=== PATIENT | female | born 1950 | race Caucasian/White ===

== ENCOUNTER 2018-05-13 10:09 | Inpatient (IN) | payer MEDICARE ==
[2018-05-13] MEDS ORDERED: ONDANSETRON 4 MG/2 ML VIAL IVP STA (10:29)
[2018-05-13] MEDS ORDERED: SODIUM CHLORIDE 0.9% 500 ML 500 ML IV STA (10:29)
[2018-05-13] MEDS ORDERED: SODIUM CHLORIDE 0.9% 1,000 ML IV STA (10:29)
[2018-05-13] MEDS ORDERED: FAMOTIDINE 20 MG/2 ML VIAL IV STA (10:31)
[2018-05-13 11:18] LABS: Anisocytosis Slight; HCT 37.4 % (34.0-46.0); HGB 11.9 gm/dL (11.4-16.0); Hypochromasia Slight; MCHC 31.8 g/dL (31.0-37.0); MCV 84.9 fL (80.0-100.0); Mean Platelet Volume 7.1; Platelet Count 240 k/uL (150-450); RBC 4.41 m/uL (3.80-5.40); RDW 16.7 % (11.5-15.5)
--- NOTE | 2018-05-13 11:21 | ED ---
Nausea/Vomiting/Diarrhea HPI - General Chief complaint: Nausea/Vomiting/Diarrhea Stated complaint: Abd Pain Time Seen by Provider: 05/13/18 10:23 Source: patient, RN notes reviewed Mode of arrival: wheelchair Limitations: no limitations - History of Present Illness Initial comments: 67-year-old female presents emergency Department chief complaint nausea vomiting diarrhea 5 days. Patient states that she's had multiple contacts are household with a stomach virus but states that she's not getting any better. Patient states that she's had no melena, hematochezia, hematemesis or coffee- ground emesis. Patient states she just generalized feels weak, run down not feeling well. She does complain of mild epigastric pain which just started in the last 2 days. Patient denies any chest pain, shortness breath, headache or dizziness. Patient states that she is not eating much and last 5 days. Patient states her diarrhea is watery no recent antibiotic use or recent traveling. - Related Data Home Medications Medication Instructions Recorded Confirmed Atorvastatin [Lipitor] 80 mg PO HS 05/13/18 05/13/18 Insulin Detemir [Levemir] 40 unit SQ BID 05/13/18 05/13/18 Levothyroxine Sodium [Synthroid] 137 mcg PO DAILY 05/13/18 05/13/18 Lisinopril [Zestril] 20 mg PO DAILY 05/13/18 05/13/18 NIFEdipine [NIFEdipine ER] 90 mg PO DAILY 05/13/18 05/13/18 Pioglitazone [Actos] 30 mg PO DAILY 05/13/18 05/13/18 Triamterene-Hctz 37.5-25Mg 1 cap PO DAILY 05/13/18 05/13/18 [Dyazide 37.5-25 Capsule] Allergies Allergy/AdvReac Type Severity Reaction Status Date / Time amoxicillin Allergy Unknown Verified 05/13/18 11:12 Sulfa (Sulfonamide Allergy Rash/Hives Verified 05/13/18 11:12 Antibiotics) Review of Systems ROS Statement: Those systems with pertinent positive or pertinent negative responses have been documented in the HPI. ROS Other: All systems not noted in ROS Statement are negative. Past Medical History Past Medical History: Diabetes Mellitus, Hyperlipidemia, Hypertension, Thyroid Disorder History of Any Multi-Drug Resistant Organisms: None Reported Past Surgical History: Hernia Repair Past Psychological History: No Psychological Hx Reported Smoking Status: Never smoker Past Alcohol Use History: None Reported Past Drug Use History: None Reported General Exam Limitations: no limitations General appearance: alert, in no apparent distress Head exam: Present: atraumatic, normocephalic, normal inspection ENT exam: Present: normal oropharynx Neck exam: Present: normal inspection. Absent: tenderness, meningismus, lymphadenopathy Respiratory exam: Present: normal lung sounds bilaterally. Absent: respiratory distress, wheezes, rales, rhonchi, stridor Cardiovascular Exam: Present: regular rate, normal rhythm, normal heart sounds. Absent: systolic murmur, diastolic murmur, rubs, gallop, clicks GI/Abdominal exam: Present: soft, tenderness (Mild epigastric), normal bowel sounds. Absent: distended, guarding, rebound, rigid Course Vital Signs 05/13/18 10:12 Temperature 97.8 F Pulse Rate 80 Respiratory 18 Rate Blood Pressure 92/48 O2 Sat by Pulse 98 Oximetry Medical Decision Making - Lab Data Result diagrams: 05/13/18 11:00 05/13/18 11:00 Lab Results 05/13/18 05/13/18 05/13/18 Range/Units 11:00 11:00 11:00 WBC 6.0 (3.8-10.6) k/uL RBC 4.41 (3.80-5.40) m/uL Hgb 11.9 (11.4-16.0) gm/dL Hct 37.4 (34.0-46.0) % MCV 84.9 (80.0-100.0) fL MCH 27.0 (25.0-35.0) pg MCHC 31.8 (31.0-37.0) g/dL RDW 16.7 H (11.5-15.5) % Plt Count 240 (150-450) k/uL Neutrophils % (Manual) 61 % Lymphocytes % (Manual) 32 % Monocytes % (Manual) 6 % Eosinophils % (Manual) 1 % Neutrophils # (Manual) 3.66 (1.3-7.7) k/uL Lymphocytes # (Manual) 1.92 (1.0-4.8) k/uL Monocytes # (Manual) 0.36 (0-1.0) k/uL Eosinophils # (Manual) 0.06 (0-0.7) k/uL Nucleated RBCs 0 (0-0) /100 WBC Manual Slide Review Performed Hypochromasia Slight Anisocytosis Slight Sodium 133 L (137-145) mmol/L Potassium 4.3 (3.5-5.1) mmol/L Chloride 105 (98-107) mmol/L Carbon Dioxide 17 L (22-30) mmol/L Anion Gap 11 mmol/L BUN 61 H (7-17) mg/dL Creatinine 4.10 H (0.52-1.04) mg/dL Est GFR (CKD-EPI)AfAm 12 (>60 ml/min/1.73 sqM) Est GFR (CKD-EPI)NonAf 11 (>60 ml/min/1.73 sqM) Glucose 91 (74-99) mg/dL Calcium 8.4 (8.4-10.2) mg/dL Magnesium 2.2 (1.6-2.3) mg/dL Total Bilirubin 0.9 (0.2-1.3) mg/dL AST 77 H (14-36) U/L ALT 89 H (9-52) U/L Alkaline Phosphatase 62 (38-126) U/L Troponin I <0.012 (0.000-0.034) ng/mL Total Protein 6.0 L (6.3-8.2) g/dL Albumin 2.9 L (3.5-5.0) g/dL Amylase 63 (30-110) U/L Lipase 135 (23-300) U/L Disposition Clinical Impression: Dehydration, Acute renal failure, Nausea vomiting and diarrhea Disposition: ADMITTED IP TO THIS [facility] Condition: Fair Referrals: Nonstaff,Physician [Primary Care Provider] - 1-2 days
[2018-05-13 11:27] LABS: Albumin 2.9 g/dL (3.5-5.0); Calcium 8.4 mg/dL (8.4-10.2); Magnesium 2.2 mg/dL (1.6-2.3); Potassium 4.3 mmol/L (3.5-5.1); Total Bilirubin 0.9 mg/dL (0.2-1.3)
[2018-05-13] MEDS ORDERED: MORPHINE SULFATE 4 MG/ML SYRINGE IVP STA (11:47)
[2018-05-13 11:55] LABS: Eosinophils # (M) 0.06 k/uL (0-0.7); Lymphocytes # (M) 1.92 k/uL (1.0-4.8); Monocytes # (M) 0.36 k/uL (0-1.0); Neutrophils # (M) 3.66 k/uL (1.3-7.7); Neutrophils % (M) 61 %; Nucleated Red Blood Cells 0 /100 WBC (0-0); Total Cells Counted 100
[2018-05-13] MEDS: SODIUM CHLORIDE 0.9% 1,000 ML IV SCH (13:16)
--- NOTE | 2018-05-13 13:19 | CT ---
EXAMINATION TYPE: CT abdomen pelvis wo con DATE OF EXAM: 05/13/2018 COMPARISON: None INDICATION: diarrhea for 5 days DLP: 1749.5 mGycm, Automated exposure control for dose reduction was used. CONTRAST: None. Study performed without Oral Contrast TECHNIQUE: Axial images were obtained from above the diaphragm to the pubic rami in the axial plane a t 5 mm thick sections. Reconstructed images are reviewed on the computer in the coronal plane. FINDINGS: Limited CT sections are obtained the lung bases. Streak opacities are at the lung bases most likely on the basis of atelectasis.. CT ABDOMEN: Some mild inflammatory change may be adjacent to the third portion of the duodenum. No fr ee air is evident. Liver: Normal Spleen: Normal Pancreas: Normal Adrenal glands: The adrenal glands are normal. Gallbladder: Gallstone is present. Kidneys: No masses are evident. No hydronephrosis is present. No cysts are present. Delayed images were obtained through the kidneys, which remain unremarkable. Aorta: Vascular calcification is within the aorta. Inferior vena cava: Normal. CT PELVIS: Loops of bowel within the abdomen and pelvis are normal. Study is without oral contrast. Scattere d diverticuli within the sigmoid colon. Appendix: Normal as visualized. Urinary bladder: Normal. Genitourinary structures: Uterus and adnexal regions appear within normal limits. No free fluid is wi thin the pelvis. Osseous structures: No suspicious lytic or sclerotic lesions. IMPRESSIONS: 1. Appears to be some inflammatory change adjacent to the third portion of the duodenum. Correlate f or some duodenitis. 2. Cholelithiasis.
[2018-05-13] MEDS ORDERED: NALOXONE 0.4 MG/ML 1 ML VIAL IV PRN (13:32)
--- NOTE | 2018-05-13 14:25 | P.NPCON ---
History of Present Illness - Reason for Consult acute renal failure - History of Present Illness Reason for consultation: Acute kidney injury History of present illness: Patient is a 67-year-old female seen in renal consultation for acute kidney injury. Patient denies any history of kidney disease. Unknown as to what her baseline renal function is. Creatinine was 4.1 on admission today. Patient presented with nausea vomiting and diarrhea going on for the last 5 days. Patient states several family members in her household has been sick over the last 3 weeks. Overall her symptoms are improving. She does admit to taking triamterene and hydrochlorothiazide as well as lisinopril at home. She denies use of NSAIDs. She does have history of diabetes mellitus diagnosed over 10 years ago. Denies any hematuria or dysuria. Admits to good urine output. No chest pain or shortness of breath. Denies any family history of renal disease. Her blood pressure was low in the systolic 90s initially. She has received 2 L of normal saline. Currently maintained on normal saline at 100 mL an hour. She did have a CAT scan of the abdomen and pelvis done which revealed no evidence of hydronephrosis. Duodenitis was noted. Vital signs are stable. General: The patient appeared well nourished and normally developed. HEENT: Head exam is unremarkable. Neck is without jugular venous distension. LUNGS: Lungs are clear to auscultation and percussion. Breath sounds decreased. HEART: Rate and Rhythm are regular. First and second heart sounds normal. No murmurs, rubs or gallops. ABDOMEN: Abdominal exam reveals normal bowel sounds. Non-tender and non- distended. No evidence of peritonitis. EXTREMITITES: No clubbing, cyanosis, or edema. Past Medical History Past Medical History: Diabetes Mellitus, Hyperlipidemia, Hypertension, Thyroid Disorder History of Any Multi-Drug Resistant Organisms: None Reported Past Surgical History: Hernia Repair Past Psychological History: No Psychological Hx Reported Smoking Status: Never smoker Past Alcohol Use History: None Reported Past Drug Use History: None Reported Medications and Allergies Home Medications Medication Instructions Recorded Confirmed Type Atorvastatin [Lipitor] 80 mg PO HS 05/13/18 05/13/18 History Insulin Detemir [Levemir] 40 unit SQ BID 05/13/18 05/13/18 History Levothyroxine Sodium [Synthroid] 137 mcg PO DAILY 05/13/18 05/13/18 History Lisinopril [Zestril] 20 mg PO DAILY 05/13/18 05/13/18 History NIFEdipine [NIFEdipine ER] 90 mg PO DAILY 05/13/18 05/13/18 History Pioglitazone [Actos] 30 mg PO DAILY 05/13/18 05/13/18 History Triamterene-Hctz 37.5-25Mg 1 cap PO DAILY 05/13/18 05/13/18 History [Dyazide 37.5-25 Capsule] Allergies Allergy/AdvReac Type Severity Reaction Status Date / Time amoxicillin Allergy Unknown Verified 05/13/18 11:12 Sulfa (Sulfonamide Allergy Rash/Hives Verified 05/13/18 11:12 Antibiotics) Physical Exam Vitals: Vital Signs Temp Pulse Resp BP Pulse Ox 05/13/18 14:08 97.1 F L 77 18 107/49 98 05/13/18 10:12 97.8 F 80 18 92/48 98 Intake and Output 05/12/18 05/13/18 05/13/18 22:59 06:59 14:59 Other: Weight 128.367 kg Results - Lab Results Most recent lab results Calcium 8.4 mg/dL (8.4-10.2) 05/13/18 11:00 Magnesium 2.2 mg/dL (1.6-2.3) 05/13/18 11:00 05/13/18 11:00 05/13/18 11:00 Assessment and Plan Plan: Assessment: 1. Nonoliguric acute kidney injury mostly prerenal secondary to intravascular volume depletion from vomiting and diarrhea and hypotension. Further worsened with the use of diuretics and lisinopril. Creatinine 4.1 on admission. No evidence of hydronephrosis noted on CAT scan. 2. Hypovolemic hyponatremia. 3. Metabolic acidosis secondary to acute kidney injury. 4. Hypotension from intravascular volume depletion. Plan: Continue normal saline at 100 mL an hour. Add sodium bicarbonate. Hold diuretics and antihypertensives for now. Repeat electrolytes in the morning. Check UA. Thank you for the consultation. I will continue to follow the patient with you during her hospital stay.
--- NOTE | 2018-05-13 15:19 | P.HPIM ---
History of Present Illness This is a pleasant 67 years old female with past medical history of diabetes mellitus on insulin, hyperlipidemia, hypertension, hypothyroidism, leg edema who presents because of abdominal pain and diarrhea. Patient states that she has diarrhea for the last 5 days getting worse over the last 2 days and yesterday it has happening almost every 1 hour with no blood in it. But today is showing slight improvement by the time I'm seeing the patient. Patient complains also from mild epigastric pain and tenderness for the last 2 days the pain feels like a crampy nonradiating it was 6/10 in severity now is completely gone. Associated with some nausea but not vomiting. Also patient gave history of common called about 2 weeks ago after that she started developing the diarrhea. He had has long history of bilateral leg swelling. On admission she has no leukocytosis and on the CAT scan there is some evidence of Duodenitis. No fever, on admission she was a bit hypotensive and improved after boluses of IV fluids. Creatinine was 4.1, mildly elevated liver enzymes normal bilirubin. Review of Systems CONSTITUTIONAL: No fever, no malaise, no fatigue. HEENT: No recent visual problems or hearing problems. Denied any sore throat. CARDIOVASCULAR: No orthopnea, PND, no palpitations, no syncope. PULMONARY: No shortness of breath, no cough, no hemoptysis. GASTROINTESTINAL: No diarrhea, no nausea, no vomiting, no abdominal pain. Normoactive bowel sounds. NEUROLOGICAL: No headaches, no weakness, no numbness. HEMATOLOGICAL: Denies any bleeding or petechiae. GENITOURINARY: Denies any burning micturition, frequency, or urgency. MUSCULOSKELETAL/RHEUMATOLOGICAL: Denies any joint pain, swelling, or any muscle pain. ENDOCRINE: Denies any polyuria or polydipsia. Past Medical History Past Medical History: Diabetes Mellitus, Hyperlipidemia, Hypertension, Thyroid Disorder History of Any Multi-Drug Resistant Organisms: None Reported Past Surgical History: Hernia Repair Past Psychological History: No Psychological Hx Reported Smoking Status: Never smoker Past Alcohol Use History: None Reported Past Drug Use History: None Reported Medications and Allergies Home Medications Medication Instructions Recorded Confirmed Type Atorvastatin [Lipitor] 80 mg PO HS 05/13/18 05/13/18 History Insulin Detemir [Levemir] 40 unit SQ BID 05/13/18 05/13/18 History Levothyroxine Sodium [Synthroid] 137 mcg PO DAILY 05/13/18 05/13/18 History Lisinopril [Zestril] 20 mg PO DAILY 05/13/18 05/13/18 History NIFEdipine [NIFEdipine ER] 90 mg PO DAILY 05/13/18 05/13/18 History Pioglitazone [Actos] 30 mg PO DAILY 05/13/18 05/13/18 History Triamterene-Hctz 37.5-25Mg 1 cap PO DAILY 05/13/18 05/13/18 History [Dyazide 37.5-25 Capsule] Allergies Allergy/AdvReac Type Severity Reaction Status Date / Time amoxicillin Allergy Unknown Verified 05/13/18 11:12 Sulfa (Sulfonamide Allergy Rash/Hives Verified 05/13/18 11:12 Antibiotics) Physical Exam Vitals: Vital Signs Temp Pulse Resp BP Pulse Ox 05/13/18 10:12 97.8 F 80 18 92/48 98 Intake and Output 05/12/18 05/13/18 05/13/18 22:59 06:59 14:59 Other: Weight 128.367 kg GENERAL: The patient is alert and oriented x3, not in any acute distress. Well developed, well nourished. HEENT: Pupils are round and equally reacting to light. EOMI. No scleral icterus. No conjunctival pallor. Normocephalic, atraumatic. No pharyngeal erythema. No thyromegaly. CARDIOVASCULAR: S1 and S2 present. No murmurs, rubs, or gallops. PULMONARY: Chest is clear to auscultation, no wheezing or crackles. ABDOMEN: Soft, nontender, nondistended, normoactive bowel sounds. No palpable organomegaly. MUSCULOSKELETAL: No joint swelling or deformity. EXTREMITIES: No cyanosis, clubbing, or pedal edema. NEUROLOGICAL: Gross neurological examination did not reveal any focal deficits. SKIN: No rashes. Results CBC & Chem 7: 05/13/18 11:00 05/13/18 11:00 Labs: Abnormal Lab Results - Last 24 Hours (Table) 05/13/18 05/13/18 Range/Units 11:00 11: RDW 16.7 H (11.5-15.5) % Sodium 133 L (137-145) mmol/L Carbon Dioxide 17 L (22-30) mmol/L BUN 61 H (7-17) mg/dL Creatinine 4.10 H (0.52-1.04) mg/dL AST 77 H (14-36) U/L ALT 89 H (9-52) U/L Total Protein 6.0 L (6.3-8.2) g/dL Albumin 2.9 L (3.5-5.0) g/dL Assessment and Plan Assessment: Acute kidney injury Possible gastroenteritis Diabetes mellitus, on insulin Essential hypertension Hyperlipidemia Chronic bilateral leg edema Dehydration Plan: This is a pleasant 67 years old female who presents with signs symptoms of gastroenteritis with acute renal failure. We'll continue with IV fluids, PPI, nephrology consult is appreciated. We'll check echocardiogram and venous Doppler for the DVT for her bilateral leg swelling. Labs and medication were resumed. Continue same treatment. Continue with symptomatic treatment. Resume home medication. Monitor lytes and vitals. DVT and GI prophylaxis. Further recommendationsof the clinical course of the patient DVT prophylaxis: Subcutaneous heparin GI Prophylaxis: PPI PT/OT: Pending Prognosis is guarded
[2018-05-13 17:22] LABS: Glucose,Whole Blood 97 mg/dL (75-99)
--- NOTE | 2018-05-13 17:39 | US ---
EXAMINATION TYPE: US venous doppler duplex LE DATE OF EXAM: 05/13/2018 5:09 PM COMPARISON: NONE CLINICAL HISTORY: Rule out DVT. Intermittent bilateral leg swelling, exam done portable SIDE PERFORMED: Bilateral TECHNIQUE: The lower extremity deep venous system is examined utilizing real time linear array sonog norbert with graded compression, doppler sonography and color-flow sonography. VESSELS IMAGED: External Iliac Vein (EIV) Common Femoral Vein Deep Femoral Vein Greater Saphenous Vein * Femoral Vein Popliteal Vein Small Saphenous Vein * Proximal Calf Veins (* superficial vessels) Technically difficult and limited study due to patient body habitus, transverse bilateral distal fe moral vein not seen due to patient body habitus and leg swelling, limited transverse images of bilate ral popliteal vein done due to patient body habitus and leg swelling. Right Leg: Visualized portions appear negative for DVT, limitations listed above Left Leg: Visualized portions appear negative for DVT, limitations listed above IMPRESSION: No evidence of deep venous thrombosis in the legs.
[2018-05-13] MEDS: PANTOPRAZOLE 40 MG/10 ML VIAL IVP SCH (17:47)
[2018-05-13 20:12] LABS: Glucose,Whole Blood 89 mg/dL (75-99)
[2018-05-13] MEDS: SODIUM BICARBONATE TAB 650 MG TAB PO SCH (21:25)
[2018-05-13] MEDS: HEPARIN SODIUM,PORCINE 5,000 UNIT/ML 1 ML VIAL SQ SCH (21:25)
[2018-05-13 21:41] LABS: Amorphous Sediment,Urine Moderate /hpf; Appearance,Urine Turbid (Clear); Bacteria,Urine Moderate /hpf; Bilirubin,Urine Negative (Negative); Blood,Urine Small (Negative); Color,Urine Yellow; Glucose,Urine (UA) Negative (Negative); Hyaline Casts,Urine 68 /lpf (0-2); Ketones,Urine Negative (Negative); Leukocyte Esterase,Urine Small (Negative); Mucus,Urine Rare /hpf; Nitrite,Urine Negative (Negative); Protein,Urine Trace (Negative); RBC,Urine 2 /hpf (0-5); Specific Gravity,Urine 1.014 (1.001-1.035); Squamous Epithelial Cell,Urine 23 /hpf (0-4); Urobilinogen,Urine <2.0 mg/dL (<2.0); WBC,Urine 11 /hpf (0-5)
[2018-05-14] MEDS: SODIUM CHLORIDE 0.9% 1,000 ML IV SCH ×3 (01:07→18:00)
[2018-05-14 07:03] LABS: Anisocytosis Slight; HCT 33.8 % (34.0-46.0); HGB 10.5 gm/dL (11.4-16.0); Hypochromasia Slight; MCH 26.5 pg (25.0-35.0); MCHC 31.1 g/dL (31.0-37.0); Mean Platelet Volume 7.6; Platelet Count 233 k/uL (150-450); RBC 3.98 m/uL (3.80-5.40); RDW 16.8 % (11.5-15.5); WBC 4.2 k/uL (3.8-10.6)
[2018-05-14 07:13] LABS: Albumin 2.7 g/dL (3.5-5.0); Calcium 7.7 mg/dL (8.4-10.2); Magnesium 2.1 mg/dL (1.6-2.3); Potassium 4.3 mmol/L (3.5-5.1); Total Bilirubin 0.6 mg/dL (0.2-1.3); Total Protein 5.6 g/dL (6.3-8.2)
[2018-05-14 07:42] LABS: Glucose,Whole Blood 87 mg/dL (75-99)
[2018-05-14] MEDS: PANTOPRAZOLE 40 MG/10 ML VIAL IVP SCH (08:38)
[2018-05-14] MEDS: HEPARIN SODIUM,PORCINE 5,000 UNIT/ML 1 ML VIAL SQ SCH ×2 (08:38→20:46)
[2018-05-14] MEDS: SODIUM BICARBONATE TAB 650 MG TAB PO SCH ×2 (08:38→20:47)
--- NOTE | 2018-05-14 10:01 | ECHOF ---
Referral Reason:Rule out heart disease MEASUREMENTS -------- HEIGHT: 160.0 cm WEIGHT: 128.4 kg BP: 107/49 RVIDd: 2.6 cm (< 3.3) IVSd: 1.3 cm (0.6 - 1.1) LVIDd: 3.3 cm (3.9 - 5.3) LVPWd: 1.2 cm (0.6 - 1.1) IVSs: 1.6 cm LVIDs: 2.5 cm LVPWs: 1.6 cm LA Diam: 2.7 cm (2.7 - 3.8) LAESV Index (A-L): 16.38 ml/m Ao Diam: 2.8 cm (2.0 - 3.7) AV Cusp: 2.0 cm (1.5 - 2.6) MV EXCURSION: 14.967 mm (> 18.000) MV EF SLOPE: 68 mm/s (70 - 150) EPSS: 0.2 cm MV E Romel: 1.07 m/s MV DecT: 271 ms MV A Romel: 1.00 m/s MV E/A Ratio: 1.06 AV maxP.35 mmHg AV meanP.57 mmHg RAP: 5.00 mmHg RVSP: 33.83 mmHg FINDINGS -------- Sinus rhythm. This was a technically adequate study. The left ventricular size is normal. There is mild concentric left ventricular hypertrophy. Overa ll left ventricular systolic function is normal with, an EF between 60 - 65 %. The right ventricle is normal in size. Normal LA size by volume 22+/-6 ml/m2. The right atrium is normal in size. The aortic valve is trileaflet and appears structurally normal. Mild mitral annular calcification present. There is trace mitral regurgitation. Mild tricuspid regurgitation present. There is borderline pulmonary hypertension. The right ventr icular systolic pressure, as measured by Doppler, is 33.83mmHg. Moderate pulmonic regurgitation. The aortic root size is normal. Normal inferior vena cava with normal inspiratory collapse consistent with estimated right atrial pre ssure of 5 mmHg. There is no pericardial effusion. CONCLUSIONS -------- 1. Sinus rhythm. 2. This was a technically adequate study. 3. The left ventricular size is normal. 4. There is mild concentric left ventricular hypertrophy. 5. Overall left ventricular systolic function is normal with, an EF between 60 - 65 %. 6. The right ventricle is normal in size. 7. Normal LA size by volume 22+/-6 ml/m2. 8. The right atrium is normal in size. 9. The aortic valve is trileaflet and appears structurally normal. 10. Mild mitral annular calcification present. 11. There is trace mitral regurgitation. 12. Mild tricuspid regurgitation present. 13. There is borderline pulmonary hypertension. 14. The right ventricular systolic pressure, as measured by Doppler, is 33.83mmHg. 15. Moderate pulmonic regurgitation. 16. The aortic root size is normal. 17. Normal inferior vena cava with normal inspiratory collapse consistent with estimated right atrial pressure of 5 mmHg. 18. There is no pericardial effusion. CORRECTIONAL COUNSELOR/CASE MANAGER: Alicja De Leon RDCS
[2018-05-14 11:13] LABS: Band Neutrophils % 1 %; Eosinophils # (M) 0.21 k/uL (0-0.7); Lymphocytes # (M) 2.14 k/uL (1.0-4.8); Monocytes # (M) 0.13 k/uL (0-1.0); Neutrophils % (M) 40 %; Nucleated Red Blood Cells 0 /100 WBC (0-0); Total Cells Counted 100
[2018-05-14] MEDS ORDERED: LEVOTHYROXINE 137 MCG TAB PO SCH ×2 (11:15)
[2018-05-14 11:28] LABS: Glucose,Whole Blood 121 mg/dL (75-99)
[2018-05-14] MEDS: LEVOTHYROXINE 137 MCG TAB PO SCH (12:08)
--- NOTE | 2018-05-14 16:00 | P.PN ---
Subjective Progress Note Date: 05/14/18 Principal diagnosis: Diarrhea AK I Ms. Blela is a pleasant 67 years old female with past medical history of diabetes mellitus on insulin, hyperlipidemia, hypertension, hypothyroidism, leg edema who presents because of abdominal pain and diarrhea. Patient states that she has diarrhea for the last 5 days getting worse over the last 2 days and yesterday it has happening almost every 1 hour with no blood in it. Patient complains also from mild epigastric pain and tenderness for the last 2 days the pain feels like a crampy nonradiating it was 6/10 in severity now is completely gone. Associated with some nausea but not vomiting. Also patient gave history of common called about 2 weeks ago after that she started developing the diarrhea. He had has long history of bilateral leg swelling. On admission she has no leukocytosis and on the CAT scan there is some evidence of Duodenitis. No fever, on admission she was a bit hypotensive and Creatinine was 4.1. Today the patient is sitting up in a chair by the bedside playing cards with her granddaughter. Patient mentions that her diarrhea is improved and had only one bowel movement. Patient has long-standing history of bilateral lower extremity swelling that is worse with sitting. Patient denies having any chest pain and difficulty in breathing. No abdominal pain nausea vomiting. Patient denies having any dysuria or hematuria. No fever chills or rigors. Patient's medications have been reviewed. Objective - Vital Signs Vital signs: Vital Signs Temp 97.8 F 05/14/18 15:00 Pulse 77 05/14/18 15:00 Resp 16 05/14/18 15:00 BP 94/61 05/14/18 15:00 Pulse Ox 100 05/14/18 15:00 Intake & Output 05/13/18 05/14/18 05/14/18 18:59 06:59 18:59 Intake Total 980 Balance 980 Weight 128.367 kg Intake: Oral 980 Other: Voiding Method Toilet Toilet Toilet # Voids 1 2 - Exam GENERAL: The patient is alert and oriented x3, not in any acute distress. Morbidly obese sitting in a chair by the bedside. HEENT: Pupils are round and equally reacting to light. No pallor or icterus. CARDIOVASCULAR: S1 and S2 present. No murmurs, rubs, or gallops. PULMONARY: Distant breath sounds positive. No wheezing or crackles. ABDOMEN: Soft, nontender, nondistended, normoactive bowel sounds. Organomegaly cannot be appreciated due to huge body habitus. EXTREMITIES: Positive for bilateral pitting edema. NEUROLOGICAL: Gross neurological examination did not reveal any focal deficits. SKIN: No rashes. - Labs CBC & Chem 7: 05/14/18 06:42 05/14/18 06:42 Labs: Abnormal Lab Results - Last 24 Hours (Table) 05/13/18 05/14/18 05/14/18 Range/Units 20:45 06:42 06:42 Hgb 10.5 L (11.4-16.0) gm/dL Hct 33.8 L (34.0-46.0) % RDW 16.8 H (11.5-15.5) % Sodium 134 L (137-145) mmol/L Carbon Dioxide 17 L (22-30) mmol/L BUN 63 H (7-17) mg/dL Creatinine 3.97 H (0.52-1.04) mg/dL POC Glucose (mg/dL) (75-99) mg/dL Calcium 7.7 L (8.4-10.2) mg/dL AST 63 H (14-36) U/L ALT 72 H (9-52) U/L Total Protein 5.6 L (6.3-8.2) g/dL Albumin 2.7 L (3.5-5.0) g/dL Urine Appearance Turbid H (Clear) Urine Protein Trace H (Negative) Urine Blood Small H (Negative) Ur Leukocyte Esterase Small H (Negative) Urine WBC 11 H (0-5) /hpf Ur Squamous Epith Cells 23 H (0-4) /hpf Amorphous Sediment Moderate H (None) /hpf Urine Bacteria Moderate H (None) /hpf Hyaline Casts 68 H (0-2) /lpf Urine Mucus Rare H (None) /hpf 05/14/18 Range/Units 11:12 Hgb (11.4-16.0) gm/dL Hct (34.0-46.0) % RDW (11.5-15.5) % Sodium (137-145) mmol/L Carbon Dioxide (22-30) mmol/L BUN (7-17) mg/dL Creatinine (0.52-1.04) mg/dL POC Glucose (mg/dL) 121 H (75-99) mg/dL Calcium (8.4-10.2) mg/dL AST (14-36) U/L ALT (9-52) U/L Total Protein (6.3-8.2) g/dL Albumin (3.5-5.0) g/dL Urine Appearance (Clear) Urine Protein (Negative) Urine Blood (Negative) Ur Leukocyte Esterase (Negative) Urine WBC (0-5) /hpf Ur Squamous Epith Cells (0-4) /hpf Amorphous Sediment (None) /hpf Urine Bacteria (None) /hpf Hyaline Casts (0-2) /lpf Urine Mucus (None) /hpf Assessment and Plan Assessment: Assessment: Acute kidney injury secondary to diarrhea - prerenal Possible gastroenteritis Hypovolemic hyponatremia Diabetes mellitus, on insulin Essential hypertension Hyperlipidemia Chronic bilateral leg edema Plan: Patient has been tested negative for C. diff. Patient's creatinine slowly improving with IV hydration. Patient has been discontinued off all nephrotoxic agents and blood pressure medications. Patient's blood pressure is still running on the lower side but she is completely asymptomatic. Nephrology on board following the patient. Will check electrolytes in the morning. Continue with PPI and DVT prophylaxis. Further recommendations to follow depending the progress of the patient.
[2018-05-14] MEDS ORDERED: ACETAMINOPHEN TAB 325 MG TAB PO PRN (16:17)
--- NOTE | 2018-05-14 16:55 | PN ---
PROGRESS NOTE Patient is seen for followup for acute kidney injury. She was admitted to the hospital with decreased oral intake. Nausea, vomiting, and diarrhea. Currently, patient is maintained on IV fluids. Serum creatinine is down from 4.1 to 3.9. We do not have any previous labs available for comparison. The patient has been voiding well. Her UA shows trace protein and small blood. PHYSICAL EXAMINATION: Blood pressure was low 94/61, heart rate 77 per minute. Patient is afebrile. Examination of the heart S1, S2. Examination of lungs bilateral breath sounds are heard. Abdomen is soft, nontender, obese. Examination lower extremity shows edema 1+ bilaterally. Chronic skin changes are noted. BONDERIZER exam is grossly intact. LAB: Shows sodium 134, potassium 4.3, CO2 17, BUN 63, serum creatinine 3.97, hemoglobin 10.5 g/dL. ASSESSMENT: 1. Acute kidney injury most likely prerenal. Continue with IV fluids. We will try to obtain previous labs for assessment of the patient's baseline renal function. There are no nephrotoxic agents on board. Blood pressure remains on the lower side. The patient is not on any antihypertensive medications. 2. Metabolic acidosis secondary to renal failure. Continue with oral sodium bicarb. 3. Hypothyroidism, maintained on Synthroid. PLAN: Continue with IV fluids. Repeat labs in a.m. Continue oral sodium bicarb. Check phosphorus levels as well tomorrow. Check iron studies. MMODL / IJN: [id number] /
[2018-05-14 17:03] LABS: Glucose,Whole Blood 107 mg/dL (75-99)
[2018-05-14] MEDS: INSULIN ASPART 100 UNIT/ML 1 ML 10 ML VIAL SQ SCH ×2 (17:06→20:46)
[2018-05-14 20:42] LABS: Glucose,Whole Blood 121 mg/dL (75-99)
[2018-05-15 03:47] LABS: Hemoglobin A1C 6.5 % (4.0-6.0)
[2018-05-15] MEDS: SODIUM CHLORIDE 0.9% 1,000 ML IV SCH (04:47)
[2018-05-15] MEDS: LEVOTHYROXINE 137 MCG TAB PO SCH (05:45)
[2018-05-15 07:09] LABS: Glucose,Whole Blood 97 mg/dL (75-99)
[2018-05-15 08:06] LABS: Anisocytosis Slight; Basophils % (A) 1 %; Eosinophils # (A) 0.1 k/uL (0-0.7); Eosinophils % (A) 1 %; HCT 32.3 % (34.0-46.0); HGB 10.1 gm/dL (11.4-16.0); Hypochromasia Slight; Lymphocytes # (A) 2.2 k/uL (1.0-4.8); Lymphocytes % (A) 60 %; MCH 26.6 pg (25.0-35.0); MCHC 31.1 g/dL (31.0-37.0); MCV 85.5 fL (80.0-100.0); Mean Platelet Volume 7.4; Monocytes # (A) 0.1 k/uL (0-1.0); Monocytes % (A) 3 %; Neutrophils # (A) 1.1 k/uL (1.3-7.7); Neutrophils % (A) 31 %; Platelet Count 231 k/uL (150-450); RBC 3.78 m/uL (3.80-5.40); RDW 16.8 % (11.5-15.5); WBC 3.7 k/uL (3.8-10.6)
[2018-05-15 08:31] LABS: Albumin 2.7 g/dL (3.5-5.0); Calcium 7.9 mg/dL (8.4-10.2); Phosphorus 4.8 mg/dL (2.5-4.5); Potassium 4.5 mmol/L (3.5-5.1); Total Bilirubin 0.6 mg/dL (0.2-1.3); Total Protein 5.8 g/dL (6.3-8.2)
[2018-05-15 08:42] LABS: Poikilocytosis (M) Present
[2018-05-15] MEDS: HEPARIN SODIUM,PORCINE 5,000 UNIT/ML 1 ML VIAL SQ SCH ×2 (08:48→19:58)
[2018-05-15] MEDS: PANTOPRAZOLE 40 MG TABLET PO SCH (08:48)
[2018-05-15] MEDS: INSULIN ASPART 100 UNIT/ML 1 ML 10 ML VIAL SQ SCH ×4 (08:48→20:55)
[2018-05-15] MEDS: SODIUM BICARBONATE TAB 650 MG TAB PO SCH ×2 (08:48→19:58)
--- NOTE | 2018-05-15 11:04 | P.PN ---
Subjective Progress Note Date: 05/15/18 Principal diagnosis: Diarrhea AK I Ms. Bella is a pleasant 67 years old female with past medical history of diabetes mellitus on insulin, hyperlipidemia, hypertension, hypothyroidism, leg edema who presents because of abdominal pain and diarrhea. Patient states that she has diarrhea for the last 5 days getting worse over the last 2 days and yesterday it has happening almost every 1 hour with no blood in it. Patient complains also from mild epigastric pain and tenderness for the last 2 days the pain feels like a crampy nonradiating it was 6/10 in severity now is completely gone. Associated with some nausea but not vomiting. Also patient gave history of common called about 2 weeks ago after that she started developing the diarrhea. He had has long history of bilateral leg swelling. On admission she has no leukocytosis and on the CAT scan there is some evidence of Duodenitis. No fever, on admission she was a bit hypotensive and Creatinine was 4.1. on 05/15/18 - Today the patient is sitting up in a chair by the bedside and sleeping. Patient mentions that she cannot sleep in the bed and always sleeps on her couch at home. Patient mentions that her diarrhea is improved and had only one bowel movement. Patient denies having any chest pain and difficulty in breathing. No abdominal pain nausea vomiting. Patient denies having any dysuria or hematuria. No fever chills or rigors. Patient's medications have been reviewed. Objective - Vital Signs Vital signs: Vital Signs Temp 98.8 F 05/15/18 01:17 Pulse 80 05/15/18 03:09 Resp 24 05/15/18 03:09 BP 93/60 05/15/18 01:17 Pulse Ox 97 05/15/18 01:17 Intake & Output 05/14/18 05/15/18 05/15/18 18:59 06:59 18:59 Intake Total 1220 1600 300 Balance 1220 1600 300 Weight 128.367 kg Intake: Intake, IV Titration 1100 Amount Sodium Chloride 0.9% 1, 1100 000 ml @ 100 mls/hr IV . Q10H LESLY Rx#:[id number] Oral 1220 500 300 Other: Voiding Method Toilet Toilet # Voids 2 4 - Exam GENERAL: The patient is alert and oriented x3, not in any acute distress. Morbidly obese sitting in a chair by the bedside. HEENT: Pupils are round and equally reacting to light. No pallor or icterus. CARDIOVASCULAR: S1 and S2 present. No murmurs, rubs, or gallops. PULMONARY: Distant breath sounds positive. No wheezing or crackles. ABDOMEN: Soft, nontender, nondistended, normoactive bowel sounds. Organomegaly cannot be appreciated due to huge body habitus. EXTREMITIES: Positive for bilateral pitting edema. NEUROLOGICAL: Gross neurological examination did not reveal any focal deficits. SKIN: No rashes. - Labs CBC & Chem 7: 05/15/18 07:41 05/15/18 07:41 Labs: Abnormal Lab Results - Last 24 Hours (Table) 05/14/18 05/14/18 05/14/18 Range/Units 06:42 11:12 16:49 WBC (3.8-10.6) k/uL RBC (3.80-5.40) m/uL Hgb (11.4-16.0) gm/dL Hct (34.0-46.0) % RDW (11.5-15.5) % Neutrophils # (1.3-7.7) k/uL Sodium (137-145) mmol/L Chloride (98-107) mmol/L Carbon Dioxide (22-30) mmol/L BUN (7-17) mg/dL Creatinine (0.52-1.04) mg/dL Glucose (74-99) mg/dL POC Glucose (mg/dL) 121 H 107 H (75-99) mg/dL Hemoglobin A1c 6.5 H (4.0-6.0) % Calcium (8.4-10.2) mg/dL Phosphorus (2.5-4.5) mg/dL AST (14-36) U/L ALT (9-52) U/L Total Protein (6.3-8.2) g/dL Albumin (3.5-5.0) g/dL 05/14/18 05/15/18 05/15/18 Range/Units 20:30 07:41 07:41 WBC 3.7 L (3.8-10.6) k/uL RBC 3.78 L (3.80-5.40) m/uL Hgb 10.1 L (11.4-16.0) gm/dL Hct 32.3 L (34.0-46.0) % RDW 16.8 H (11.5-15.5) % Neutrophils # 1.1 L (1.3-7.7) k/uL Sodium 136 L (137-145) mmol/L Chloride 111 H (98-107) mmol/L Carbon Dioxide 14 L (22-30) mmol/L BUN 61 H (7-17) mg/dL Creatinine 3.12 H (0.52-1.04) mg/dL Glucose 107 H (74-99) mg/dL POC Glucose (mg/dL) 121 H (75-99) mg/dL Hemoglobin A1c (4.0-6.0) % Calcium 7.9 L (8.4-10.2) mg/dL Phosphorus 4.8 H (2.5-4.5) mg/dL AST 53 H (14-36) U/L ALT 61 H (9-52) U/L Total Protein 5.8 L (6.3-8.2) g/dL Albumin 2.7 L (3.5-5.0) g/dL Assessment and Plan Assessment: Assessment: Acute kidney injury secondary to diarrhea - prerenal Possible gastroenteritis Hypovolemic hyponatremia Diabetes mellitus, on insulin Essential hypertension Hyperlipidemia Chronic bilateral leg edema Plan: Patient has been tested negative for C. diff. Patient's creatinine slowly improving with IV hydration. Her creatinine is 3.12 today. Patient has been discontinued off all nephrotoxic agents and blood pressure medications. Patient's blood pressure is still running on the lower side but she is completely asymptomatic. Nephrology on board following the patient. Will check electrolytes in the morning. Continue with PPI and DVT prophylaxis. Further recommendations to follow depending the progress of the patient.
[2018-05-15 12:01] LABS: Glucose,Whole Blood 112 mg/dL (75-99)
[2018-05-15 12:47] LABS: Iron Saturation 15.35 (12.00-45.00)
[2018-05-15] MEDS: DEXTROSE 5% IN WATER 1,000 ML with SODIUM BICARB (1 MEQ/ML) 150 ML IV SCH ×2 (12:58→23:18)
[2018-05-15 17:32] LABS: Glucose,Whole Blood 128 mg/dL (75-99)
[2018-05-15 20:30] LABS: Glucose,Whole Blood 148 mg/dL (75-99)
[2018-05-16 02:15] VITALS: RESP 16
[2018-05-16] MEDS: LEVOTHYROXINE 137 MCG TAB PO SCH (05:28)
[2018-05-16] MEDS: INSULIN ASPART 100 UNIT/ML 1 ML 10 ML VIAL SQ SCH ×2 (06:58→12:11)
[2018-05-16 07:06] LABS: Glucose,Whole Blood 129 mg/dL (75-99)
--- NOTE | 2018-05-16 07:11 | PN ---
PROGRESS NOTE Patient is seen for followup for acute kidney injury. She is currently maintained on IV fluids. Serum creatinine has improved from 4.1-3.1 mg/dL. The patient states her diarrhea is improved. However, she had worsening metabolic acidosis today. The patient is tolerating oral intake as well. PHYSICAL EXAMINATION: Blood pressure was 144/63, heart rate 80 per minute. Patient is afebrile. Examination of the heart S1, S2. Examination of the lungs bilateral breath sounds are heard. Abdomen is soft, morbidly obese. Examination of lower extremity shows chronic skin changes. Edema 1+ bilaterally, which is mainly chronic. AUT[employer]BI[employer] MECH[employer] SUPERVISOR exam is grossly intact. LABS SHOW: Sodium 136, potassium 4.5, chloride 111, CO2 is 14, BUN 61, serum creatinine 3.12. Hemoglobin 10.1 g/dL. ASSESSMENT: 1. Acute kidney injury, mainly associated with volume depletion with an element of acute tubular necrosis given the high amount of urinary caths. Continue with IV fluids. Repeat labs in a.m. No evidence of hydronephrosis noted on abdominal CT. 2. Non gap metabolic acidosis secondary to diarrhea and renal failure. We will change IV fluids to IV bicarb. Continue with oral sodium bicarb. 3. Hypothyroidism, maintained on Synthroid. 4. Anemia with the iron deficiency noted. PLAN: IV iron x1 tomorrow. Change IV fluids to IV bicarb. Repeat labs in a.m. MMODL / IJN: [id number] /
[2018-05-16 07:57] LABS: Anisocytosis Slight; Basophils % (A) 1 %; Eosinophils % (A) 1 %; HCT 32.4 % (34.0-46.0); HGB 10.2 gm/dL (11.4-16.0); Hypochromasia Moderate; Lymphocytes # (A) 1.6 k/uL (1.0-4.8); Lymphocytes % (A) 54 %; MCH 27.1 pg (25.0-35.0); MCHC 31.3 g/dL (31.0-37.0); MCV 86.5 fL (80.0-100.0); Mean Platelet Volume 7.7; Monocytes # (A) 0.1 k/uL (0-1.0); Monocytes % (A) 3 %; Neutrophils # (A) 1.1 k/uL (1.3-7.7); Neutrophils % (A) 37 %; Platelet Count 261 k/uL (150-450); RBC 3.75 m/uL (3.80-5.40); RDW 16.8 % (11.5-15.5)
[2018-05-16 08:13] LABS: Albumin 2.7 g/dL (3.5-5.0); Calcium 8.1 mg/dL (8.4-10.2); Potassium 4.2 mmol/L (3.5-5.1); Total Bilirubin 0.6 mg/dL (0.2-1.3); Total Protein 5.6 g/dL (6.3-8.2)
[2018-05-16] MEDS ORDERED: SODIUM FERRIC GLUCONAT-SUCROSE 125 MG in SODIUM CHLORIDE 0.9% 100 ML IVPB SCH (09:00)
[2018-05-16] MEDS: DEXTROSE 5% IN WATER 1,000 ML with SODIUM BICARB (1 MEQ/ML) 150 ML IV SCH (09:04)
[2018-05-16] MEDS: PANTOPRAZOLE 40 MG TABLET PO SCH (09:04)
[2018-05-16] MEDS: HEPARIN SODIUM,PORCINE 5,000 UNIT/ML 1 ML VIAL SQ SCH (09:04)
[2018-05-16] MEDS: SODIUM BICARBONATE TAB 650 MG TAB PO SCH (09:04)
[2018-05-16 11:58] LABS: Glucose,Whole Blood 125 mg/dL (75-99)
[2018-05-16] MEDS ORDERED: SODIUM CHLORIDE 0.9% 1,000 ML IV SCH (13:45)
--- NOTE | 2018-05-16 14:47 | PN ---
PROGRESS NOTE Patient is seen for followup for acute kidney injury. She was admitted with a history of nausea, vomiting and diarrhea. The patient has been maintained on IV fluids. Her serum creatinine did come down initially from about 4.1-3.1 mg per dL yesterday. The patient remains on IV fluids and her creatinine today is down to 1.79. The patient states her diarrhea has improved. She has been tolerating oral intake. PHYSICAL EXAMINATION: Blood pressure was 126/69, heart rate 80 per minute. Patient is afebrile. Examination of the heart S1, S2. Examination of lungs bilateral breath sounds are heard. Abdomen is soft, nontender. Obese. Examination of lower extremity shows edema 1+ bilaterally. Chronic skin changes are noted. LABS SHOW: Sodium of 141, potassium 4.2, chloride 110, BUN 47, serum creatinine 1.79, hemoglobin 10.2 g/dL. ASSESSMENT: 1. Acute kidney injury associated with intravascular volume depletion. It is a component of acute tubular necrosis currently nonoliguric and significantly improved. I will decrease the IV fluids. Patient can also be discharged from nephrology standpoint, and she can follow up as outpatient in about 1-2 weeks time. 2. Intravascular volume depletion, currently improved. 3. Metabolic acidosis secondary to diarrhea and renal failure, currently significantly improved. I will discontinue the IV bicarb. We may continue with the sodium bicarb for perhaps a week or so. Expect further improvement with improving renal function. 4. Iron deficiency maintained on IV iron. The patient will receive her first dose today. PLAN: Patient is stable for discharge from Nephrology standpoint. Discontinue IV bicarb. Switch to normal saline at 50 mL an hour. Can DC sodium bicarb in about 1 week post discharge. The patient should also follow up in about 1 week after she is discharged. MMODL / IJN: [id number] /
[2018-05-16 15:23] VITALS: BP 119/70; PULSE 73; TEMP 97.8
--- NOTE | 2018-05-16 15:29 | P.DS ---
Providers Date of admission: 05/13/18 13:50 Expected date of discharge: 05/16/18 Attending physician: Lilia Lange Consults: 05/13/18 13:32 Consult Physician Stat Consulting Provider: Sharyn Dey Consult Reason/Comments: Acute renal failure Do you want consulting provider notified?: Yes Primary care physician: Physician Nonsta Hospital Course: Ms. Bella is a pleasant 67 years old female with past medical history of diabetes mellitus on insulin, hyperlipidemia, hypertension, hypothyroidism, leg edema who presents because of abdominal pain and diarrhea. Patient states that she has diarrhea for the last 5 days getting worse over the last 2 days and yesterday it has happening almost every 1 hour with no blood in it. Patient complains also from mild epigastric pain and tenderness for the last 2 days the pain feels like a crampy nonradiating it was 6/10 in severity now is completely gone. Associated with some nausea but not vomiting. Also patient gave history of common called about 2 weeks ago after that she started developing the diarrhea. He had has long history of bilateral leg swelling. On admission she has no leukocytosis and on the CAT scan there is some evidence of Duodenitis. No fever, on admission she was a bit hypotensive and Creatinine was 4.1. In the hospital patient has been started on IV fluids. As her blood pressure was running low her blood pressure medications have been on hold. Slowly her creatinine trended down,her blood pressure picked up. Nephrology was following the patient and she has been cleared by Dr. Dey to be discharged home today. Today the patient was sitting up in a chair by the bedside. Appears to be no acute distress. Patient mentions that her granddaughter were applied body lotion on her lower extremities followed dry skin. So the patient noticed, skin rash of her bilateral lower extremities where the lotion was applied. Patient denies having any itching. Patient's vitals at the time of discharge: Temperature 98.6, heart rate 80, respiratory rate 16, blood pressure 112 of 55, saturating at 98% on room air. Physical exam. GENERAL: The patient is alert and oriented x3, not in any acute distress. Morbidly obese sitting in a chair by the bedside. HEENT: Pupils are round and equally reacting to light. No pallor or icterus. CARDIOVASCULAR: S1 and S2 present. No murmurs, rubs, or gallops. PULMONARY: Distant breath sounds positive. No wheezing or crackles. ABDOMEN: Soft, nontender, nondistended, normoactive bowel sounds. Organomegaly cannot be appreciated due to huge body habitus. EXTREMITIES: Positive for bilateral pitting edema. NEUROLOGICAL: Gross neurological examination did not reveal any focal deficits. SKIN: Non-blanching rash seen in bilateral lower extremities, confined to the areas below the knee. Discharge DIAGNOSIS Acute kidney injury secondary to diarrhea - prerenal- resolving Possible gastroenteritis - resolved Contact dermatitis of bilateral lower extremities- due to new body lotion Hypovolemic hyponatremia Diabetes mellitus, on insulin Essential hypertension Hyperlipidemia Chronic bilateral leg edema Plan: Patient's creatinine is 1.79 today. Patient's blood pressure is within normal limits. Nephrology Dr. Dey has cleared the patient to be discharged home today. Explained to the patient that her lisinopril and Dyazide has been discontinued in view of her AK I and low blood pressure readings. The rest of the medication remained the same. Sodium bicarb 650 mg twice a day has been given for 14 days. She is advised to avoid any new body lotions. But if her rash worsens advised to seek immediate medical attention. Patient is advised to follow up with her PCP and nephrology, their contact numbers have been provided to the patient. More than 35 minutes spent towards the discharge of the patient. Patient Condition at Discharge: Fair Plan - Discharge Summary Discharge Rx Participant: Yes New Discharge Prescriptions: New Sodium Bicarbonate Tab 650 mg PO BID #14 tab Continue Pioglitazone [Actos] 30 mg PO DAILY Insulin Detemir [Levemir] 40 unit SQ BID Atorvastatin [Lipitor] 80 mg PO HS NIFEdipine [NIFEdipine ER] 90 mg PO DAILY Levothyroxine Sodium [Synthroid] 137 mcg PO DAILY Discontinued Triamterene-Hctz 37.5-25Mg [Dyazide 37.5-25 Capsule] 1 cap PO DAILY Lisinopril [Zestril] 20 mg PO DAILY Discharge Medication List Atorvastatin [Lipitor] 80 mg PO HS 05/13/18 [History] Insulin Detemir [Levemir] 40 unit SQ BID 05/13/18 [History] Levothyroxine Sodium [Synthroid] 137 mcg PO DAILY 05/13/18 [History] NIFEdipine [NIFEdipine ER] 90 mg PO DAILY 05/13/18 [History] Pioglitazone [Actos] 30 mg PO DAILY 05/13/18 [History] Sodium Bicarbonate Tab 650 mg PO BID #14 tab 05/16/18 [Rx] Follow up Appointment(s)/Referral(s): Sharyn Dey MD [STAFF PHYSICIAN] - 1-2 Days (Please call and set up appointment ) Tomeka Puri DO [REFERRING] - 1 Week (please call and set up appointment ) Patient Instructions/Handouts: Acute Kidney Injury (DC)
== END 2018-05-16 16:00 | disposition home or self-care (01) | DRG 683 ==
LOC: EC 10:09 → 4SSUR 13:50
PROVIDERS: ADMIT Hospitalist; ATTEND Hospitalist
DX: N17.0 Acute kidney failure with tubular necrosis (principal); E87.1 Hypo-osmolality and hyponatremia; E87.2 Acidosis; E03.9 Hypothyroidism, unspecified; D50.9 Iron deficiency anemia, unspecified; E11.9 Type 2 diabetes mellitus without complications; E78.5 Hyperlipidemia, unspecified; E86.0 Dehydration; I10 Essential (primary) hypertension; K29.80 Duodenitis without bleeding; L23.89 Allergic contact dermatitis due to other agents; Z79.4 Long term (current) use of insulin; Z79.890 Hormone replacement therapy; Z79.899 Other long term (current) drug therapy; E86.1 Hypovolemia; K52.9 Noninfective gastroenteritis and colitis, unspecified; Z88.0 Allergy status to penicillin; Z88.2 Allergy status to sulfonamides; T46.4X5A Adverse effect of angiotensin-converting-enzyme inhibitors, initial encounter; R60.0 Localized edema; T50.2X5A Adverse effect of carbonic-anhydrase inhibitors, benzothiadiazides and other diuretics, initial encounter
CPT/HCPCS: 36415; 74176; 80053; 81001; 82150; 82728; 83036; 83540; 83550; 83690; 83735; 84100; 84484; 85025; 87324; 93005; 93306; 93970; 96361; 96374; 96375; 99285

== ENCOUNTER 2021-06-10 08:17 | Inpatient (IN) | payer MEDICARE ==
[2021-06-10] MEDS ORDERED: diphenhydrAMINE 50 MG/ML 1 ML VIAL IVP STA (10:16)
[2021-06-10] MEDS ORDERED: KETOROLAC 30 MG/ML 1 ML VIAL IVP STA (10:16)
[2021-06-10 10:48] LABS: Anisocytosis Slight; Basophils % (A) 0 %; Eosinophils # (A) 0.1 k/uL (0-0.7); Eosinophils % (A) 0 %; HCT 38.5 % (34.0-46.0); HGB 12.2 gm/dL (11.4-16.0); Hypochromasia Slight; Lymphocytes # (A) 1.4 k/uL (1.0-4.8); Lymphocytes % (A) 10 %; MCHC 31.7 g/dL (31.0-37.0); MCV 81.9 fL (80.0-100.0); Mean Platelet Volume 7.4; Monocytes # (A) 0.6 k/uL (0-1.0); Monocytes % (A) 4 %; Neutrophils # (A) 12.7 k/uL (1.3-7.7); Neutrophils % (A) 85 %; Platelet Count 428 k/uL (150-450); RBC 4.71 m/uL (3.80-5.40); RDW 16.5 % (11.5-15.5)
[2021-06-10 11:03] LABS: Albumin 3.4 g/dL (3.5-5.0); Calcium 10.9 mg/dL (8.4-10.2); Potassium 4.3 mmol/L (3.5-5.1); Total Bilirubin 0.5 mg/dL (0.2-1.3); Total Protein 7.7 g/dL (6.3-8.2)
--- NOTE | 2021-06-10 11:06 | ED ---
Abdominal Pain HPI - General Chief Complaint: Abdominal Pain Stated Complaint: trouble urinating, abd pain Time Seen by Provider: 06/10/21 10:15 Source: patient, family, RN notes reviewed Mode of arrival: ambulatory Limitations: no limitations - History of Present Illness Initial Comments: Patient is a 70-year-old female with history of diabetes, hypertension, thyroid disorder, presenting to the emergency Department with complaints of lower abdominal pressure and trouble urinating for a few months now. Patient has been following with her physician out of the [facility] and has been seeing a urologist in that area as well. She's had a recent computed tomography scan (outpatient at [facility]) last week but does not know the results of this yet. She states the pain has been worsening over the past couple weeks and she "would like answers." Patient states his been very difficult to urinate over the past week, only doing dribbles and it causes intense pain. She currently rates her pain at 10/10. She denies any chest pain or shortness of breath, no fevers or chills. She states they have been treated for UTI in the past and this did not sound that issue. She admits to history of hernia repair, no other abdominal surgeries. Patient has no further complaints. Her vital signs are stable upon arrival. - Related Data Home Medications Medication Instructions Recorded Confirmed Insulin Detemir (Levemir) [Levemir] 50 unit SQ HS 05/13/18 06/10/21 NIFEdipine [NIFEdipine ER] 90 mg PO DAILY 05/13/18 06/10/21 Empagliflozin [Jardiance] 10 mg PO DAILY 06/10/21 06/10/21 INSULIN ASPART (NovoLOG) [NovoLOG 10 unit SQ AC-BID 06/10/21 06/10/21 (formulary)] Levothyroxine Sodium [Synthroid] 175 mcg PO DAILY 06/10/21 06/10/21 Rosuvastatin [Crestor] 20 mg PO DAILY 06/10/21 06/10/21 Triamterene-Hctz 37.5-25Mg 1 cap PO DAILY 06/10/21 06/10/21 [Dyazide 37.5-25 Capsule] lisinopriL [Zestril] 5 mg PO DAILY 06/10/21 06/10/21 Allergies Allergy/AdvReac Type Severity Reaction Status Date / Time amoxicillin Allergy Unknown Verified 06/10/21 11:38 Sulfa (Sulfonamide Allergy Rash/Hives Verified 06/10/21 11:38 Antibiotics) Review of Systems ROS Statement: Those systems with pertinent positive or pertinent negative responses have been documented in the HPI. ROS Other: All systems not noted in ROS Statement are negative. Past Medical History Past Medical History: Cancer, Diabetes Mellitus, Hyperlipidemia, Hypertension, Osteoarthritis (OA), Thyroid Disorder Additional Past Medical History / Comment(s): diverticulitis, "umb hernia repair and tumor removed-was cancerous" sx took care of it no chemo or radiation History of Any Multi-Drug Resistant Organisms: None Reported Past Surgical History: Hernia Repair Additional Past Surgical History / Comment(s): umb hernia repair and tumor removed-was cancerous, 1 dental implant Past Anesthesia/Blood Transfusion Reactions: No Reported Reaction Additional Past Anesthesia/Blood Transfusion Reaction / Comment(s): "has never received any blood" Past Psychological History: No Psychological Hx Reported Past Alcohol Use History: None Reported Past Drug Use History: None Reported - Past Family History Mother Family Medical History: Cancer, Diabetes Mellitus, Hyperlipidemia, Hypertension Father Family Medical History: CVA/TIA, Diabetes Mellitus, Hyperlipidemia, Hypertension General Exam - General Exam Comments Initial Comments: GENERAL: Patient is well-developed and well-nourished. Patient is nontoxic and in mild distress, teary-eyed and anxious. HEAD: Atraumatic, normocephalic. EYES: Pupils equal round and reactive to light, extraocular movements intact, sclera anicteric, conjunctiva are normal. Eyelids were unremarkable. ENT: Moist mucous membranes. NECK: Normal range of motion, supple without lymphadenopathy or JVD. LUNGS: Unlabored respirations. Breath sounds clear to auscultation bilaterally and equal. No wheezes rales or rhonchi. HEART: Regular rate and rhythm without murmurs, rubs or gallops. ABDOMEN: Soft, tender of the entire lower abdomen, suprapubic region normoactive bowel sounds. No masses appreciated. : Deferred MUSCULOSKELETAL: Normal extremities with adequate strength and normal range of motion, no pitting or edema. No clubbing or cyanosis. NEUROLOGICAL: Patient is alert and oriented x 3. Motor and sensory are also intact. Cranial nerves II through XII grossly intact. Symmetrical smile. Normal speech, normal gait. PSYCH: Normal mood, normal affect. SKIN: Warm, Dry, normal turgor, no rashes or lesions noted. Limitations: no limitations Course Vital Signs 06/10/21 06/10/21 06/10/21 08:31 08:34 13:00 Temperature 98.2 F Pulse Rate 81 75 Respiratory 22 18 Rate Blood Pressure 120/81 125/78 O2 Sat by Pulse 99 96 Oximetry 06/10/21 15:33 Temperature Pulse Rate 73 Respiratory 18 Rate Blood Pressure 117/73 O2 Sat by Pulse 96 Oximetry Medical Decision Making - Medical Decision Making Patient is a 70-year-old female with history of diabetes, hypertension, pres enting for worsening lower abdominal pain, urinary retention. History of hernia repair, no other abdominal surgeries. Her vital signs are stable upon arrival. Patient is 10/10 abdominal pain and very teary and anxious on arrival. Outpatient abdominal and pelvic CT with IV contrast performed on 05/31/2021 reveals 1. increasing size of multiple enlarged retroperitoneal lymph nodes, internal hyperdensity of these lymph nodes suggest internal necrosis. 2. Hypodense mass at the uterine fundus likely relates to a fibroid however malignancy is not excluded, recommend pelvic ultrasound. 3. Under distended urinary bladder with irregular wall thickening and perivesicular inflammatory changes, correlate for cystitis versus malignant involvement. Skin is thickening and subcutaneous edema of the left lower abdominal wall related cellulitis. Patient also had outpatient kidney function test done on 05/30/2021, BUN was 23, creatinine is 1.5 with GFR at 34. Today's labs reveal a white count of 15.0, creatinine is 2.08 with BUN of 43. Urine shows large amount of WBC and clumps, many bacteria, urine culture is pending. Patient was given 1 g of Rocephin. US reveales uterine fibroid, did recommend MRI. Patient was given fluids and pain control and does report some mild improvement in her symptoms. I discussed these findings with her. Patient will be admitted, consult with surgery, nephrology, urology. Patient accepted by Dr. Myles. I did speak to Dr. Mukherjee who agrees to consult. - Lab Data Result diagrams: 06/10/21 10:22 06/10/21 10:22 Lab Results 06/10/21 06/10/21 Range/Units 10:22 10:22 WBC 15.0 H (3.8-10.6) k/uL RBC 4.71 (3.80-5.40) m/uL Hgb 12.2 (11.4-16.0) gm/dL Hct 38.5 (34.0-46.0) % MCV 81.9 (80.0-100.0) fL MCH 26.0 (25.0-35.0) pg MCHC 31.7 (31.0-37.0) g/dL RDW 16.5 H (11.5-15.5) % Plt Count 428 (150-450) k/uL MPV 7.4 Neutrophils % 85 % Lymphocytes % 10 % Monocytes % 4 % Eosinophils % 0 % Basophils % 0 % Neutrophils # 12.7 H (1.3-7.7) k/uL Lymphocytes # 1.4 (1.0-4.8) k/uL Monocytes # 0.6 (0-1.0) k/uL Eosinophils # 0.1 (0-0.7) k/uL Basophils # 0.0 (0-0.2) k/uL Hypochromasia Slight Anisocytosis Slight Sodium 138 (137-145) mmol/L Potassium 4.3 (3.5-5.1) mmol/L Chloride 109 H (98-107) mmol/L Carbon Dioxide 12 L (22-30) mmol/L Anion Gap 17 mmol/L BUN 43 H (7-17) mg/dL Creatinine 2.08 H (0.52-1.04) mg/dL Est GFR (CKD-EPI)AfAm 28 (>60 ml/min/1.73 sqM) Est GFR (CKD-EPI)NonAf 24 (>60 ml/min/1.73 sqM) Glucose 156 H (74-99) mg/dL Calcium 10.9 H (8.4-10.2) mg/dL Total Bilirubin 0.5 (0.2-1.3) mg/dL AST 40 H (14-36) U/L ALT 17 (4-34) U/L Alkaline Phosphatase 286 H (38-126) U/L Total Protein 7.7 (6.3-8.2) g/dL Albumin 3.4 L (3.5-5.0) g/dL Lipase 47 (23-300) U/L Disposition Clinical Impression: Abdominal pain, Abdominal wall cellulitis, MATTY (acute kidney injury), Uterine mass, Abdominal lymphadenopathy Disposition: ADMITTED IP TO THIS HOSP Condition: Stable Decision Date: 06/10/21 Decision Time: 13:01
[2021-06-10] MEDS ORDERED: MORPHINE SULFATE 4 MG/ML SYRINGE IVP STA (11:53)
[2021-06-10] MEDS ORDERED: NALOXONE 0.4 MG/ML 1 ML VIAL IV PRN (12:40)
[2021-06-10] MEDS ORDERED: KETOROLAC 15 MG/ML 1 ML VIAL IVP PRN (12:56)
[2021-06-10] MEDS ORDERED: ONDANSETRON 4 MG/2 ML VIAL IVP PRN (12:56)
[2021-06-10] MEDS ORDERED: cefTRIAXone IN SWFI 1,000 MG/10 ML SYRINGE IVP STA (12:59)
[2021-06-10] MEDS: SODIUM CHLORIDE 0.9% 1,000 ML IV SCH ×2 (13:30→21:17)
--- NOTE | 2021-06-10 13:31 | US ---
EXAMINATION TYPE: US pelvic complete DATE OF EXAM: 06/10/2021 COMPARISON: NONE 05/13/2018 CT scan CLINICAL HISTORY: pain, abnormal CT finding. unable to urinate, pelvic pain, abnormal CT done at [facility] location - patient states possible fibroid TECHNIQUE: Transabdominal (TA). Date of LMP: unknown EXAM MEASUREMENTS: Uterus: 13.9 x 6.2 x 7.1 cm Endometrial Stripe: unable to visualize Right Ovary: unable to visualize Left Ovary: unable to visualize 1. Uterus: Anteverted hypoechoic complex area fundus = 7.2 x 6.0 x 6.0cm 2. Endometrium: unable to clearly visualize 3. Right Ovary: Obscured by overlying bowel gas 4. Left Ovary: Obscured by overlying bowel gas 5. Bilateral Adnexa: appears wnl 6. Posterior cul-de-sac: wnl IMPRESSION: 1. The is a complex hypoechoic area involving the uterine fundus measuring 7.2 cm most likely in the basis of the uterine fibroid. Other etiologies not excluded and MRI is recommended.
[2021-06-10 14:02] LABS: Appearance,Urine Cloudy (Clear); Bacteria,Urine Many /hpf; Bilirubin,Urine Negative (Negative); Blood,Urine Large (Negative); Color,Urine Yellow; Glucose,Urine (UA) 3+ (Negative); Ketones,Urine Negative (Negative); Leukocyte Esterase,Urine Large (Negative); Mucus,Urine Rare /hpf; Nitrite,Urine Negative (Negative); PH, Urine 5.5 (5.0-8.0); Protein,Urine Trace (Negative); RBC,Urine 104 /hpf (0-5); Specific Gravity,Urine 1.013 (1.001-1.035); Urobilinogen,Urine <2.0 mg/dL (<2.0); WBC,Urine >182 /hpf (0-5)
--- NOTE | 2021-06-10 14:38 | XR ---
EXAMINATION TYPE: XR chest 1V DATE OF EXAM: 06/10/2021 COMPARISON: NONE HISTORY: Covid positive TECHNIQUE: Single frontal view of the chest is obtained. FINDINGS: There is no focal air space opacity, pleural effusion, or pneumothorax seen. The cardiac silhouette size is within normal limits. The osseous structures are intact. AC joint arthropathy on the right. Heart size normal. No overt failure. IMPRESSION: No acute process.
--- NOTE | 2021-06-10 14:45 | P.HPIM ---
History of Present Illness This is a pleasant 70 years old female with past medical history of Diabetes Mellitus, Hyperlipidemia, Hypertension, Osteoarthritis, hypothyroidism, history of diverticulosis and diverticulitis. Her PCP is Dr. Tammy Patricia, at [facility] She presents because of abdominal pain and urinary symptoms. She has a pain for more than a month, and Smillie in the lower abdomen again across both sides and associated with some little back pain felt like cramping. Was more severe this morning 02/19 and associated with more difficulty with urination which was ongoing for the last 2 weeks getting worse gradually, today it was harder for her to be. Besides each time she P's her lower abdominal pain become more severe. She reports some blood in her urine since last October were her PCP referred to urologist at [facility] but has a busy schedule so his been seen on her every months. She saw me twice, second time he ordered a scan of the abdomen with results came back as below. She denies any respiratory symptoms. No dyspnea or chest pain or coughing. No chest pain. No headache or weakness or numbness. Also patient complaining of from constipation because of its painful for her to have a bowel movement No history of smoking, alcohol or illicit drugs Patient was unaware she had been diagnosed with Covid and she has no respiratory symptoms Franco catheter placed in the emergency room. It is yellow urine, no gross hematuria. Pending full urine analysis. Vitas looks stable. She has mild leukocytosis at 15 K Creatinine elevated from baseline 1.7 up to 2.0. Calcium 10.9 which is mildly elevated. Glucose 156 also elevated. Liver enzymes are not significantly elevated covid test came back positive She has CT of the abdomen and pelvis with and without contrast done on 05/31/2021 about 10 days ago showing: Retroperitoneal lymphadenopathy along with paraAortic region. With possible necrotic center transformation. Colonic diverticulosis without diverticulitis. Infraumbilical hernia in the midline abdominal wall with soft tissue density measuring 1.7 x 1.7 cm inside the hernia sac. No hydronephrosis, no renal mass. Urinary bladder wall thickening suspicious for cystitis versus malignant involvement. There is a large uterine fundal hypodense mass measuring 6.8 x 6.4 cm likely fibroid however malignancy not excluded. Chest x-ray no acute process In the emergency room she received 1 dose of Rocephin, Toradol, morphine, normal saline and Tylenol. Nephrology, urology and surgery team were consulted Review of Systems CONSTITUTIONAL: No fever, no malaise, no fatigue. HEENT: No recent visual problems or hearing problems. Denied any sore throat. CARDIOVASCULAR: No orthopnea, PND, no palpitations, no syncope. PULMONARY: No shortness of breath, no cough, no hemoptysis. GASTROINTESTINAL: No diarrhea, no nausea, no vomiting, no abdominal pain. Normoactive bowel sounds. NEUROLOGICAL: No headaches, no weakness, no numbness. HEMATOLOGICAL: Denies any bleeding or petechiae. -GENITOURINARY: As above MUSCULOSKELETAL/RHEUMATOLOGICAL: Denies any joint pain, swelling, or any muscle pain. ENDOCRINE: Denies any polyuria or polydipsia. Past Medical History Past Medical History: Cancer, Diabetes Mellitus, Hyperlipidemia, Hypertension, O steoarthritis (OA), Thyroid Disorder Additional Past Medical History / Comment(s): diverticulitis, "umb hernia repair and tumor removed-was cancerous" sx took care of it no chemo or radiation History of Any Multi-Drug Resistant Organisms: None Reported Past Surgical History: Hernia Repair Additional Past Surgical History / Comment(s): umb hernia repair and tumor removed-was cancerous, 1 dental implant Past Anesthesia/Blood Transfusion Reactions: No Reported Reaction Additional Past Anesthesia/Blood Transfusion Reaction / Comment(s): "has never received any blood" Past Psychological History: No Psychological Hx Reported Past Alcohol Use History: None Reported Past Drug Use History: None Reported - Past Family History Mother Family Medical History: Cancer, Diabetes Mellitus, Hyperlipidemia, Hypertension Father Family Medical History: CVA/TIA, Diabetes Mellitus, Hyperlipidemia, Hypertension Medications and Allergies Home Medications Medication Instructions Recorded Confirmed Type Insulin Detemir (Levemir) [Levemir] 50 unit SQ HS 05/13/18 06/10/21 History NIFEdipine [NIFEdipine ER] 90 mg PO DAILY 05/13/18 06/10/21 History Empagliflozin [Jardiance] 10 mg PO DAILY 06/10/21 06/10/21 History INSULIN ASPART (NovoLOG) [NovoLOG 10 unit SQ AC-BID 06/10/21 06/10/21 History (formulary)] Levothyroxine Sodium [Synthroid] 175 mcg PO DAILY 06/10/21 06/10/21 History Rosuvastatin [Crestor] 20 mg PO DAILY 06/10/21 06/10/21 History Triamterene-Hctz 37.5-25Mg 1 cap PO DAILY 06/10/21 06/10/21 History [Dyazide 37.5-25 Capsule] lisinopriL [Zestril] 5 mg PO DAILY 06/10/21 06/10/21 History Allergies Allergy/AdvReac Type Severity Reaction Status Date / Time amoxicillin Allergy Unknown Verified 06/10/21 11:38 Sulfa (Sulfonamide Allergy Rash/Hives Verified 06/10/21 11:38 Antibiotics) Physical Exam Vitals: Vital Signs Temp Pulse Resp BP Pulse Ox 06/10/21 08:34 120/81 06/10/21 08:31 98.2 F 81 22 99 Intake and Output 06/09/21 06/10/21 06/10/21 22:59 06:59 14:59 Output Total 300 Balance -300 Output: Urine 300 Uretheral (Franco) 300 Other: Weight 113.398 kg GENERAL: The patient is alert and oriented x3, not in any acute distress. Well developed, well nourished. HEENT: Pupils are round and equally reacting to light. EOMI. No scleral icterus. No conjunctival pallor. Normocephalic, atraumatic. No pharyngeal erythema. No thyromegaly. CARDIOVASCULAR: S1 and S2 present. No murmurs, rubs, or gallops. PULMONARY: Chest is clear to auscultation, no wheezing or crackles. -ABDOMEN: Soft, lower and suprapubic abdominal tenderness, nondistended, normoactive bowel sounds. No palpable organomegaly. MUSCULOSKELETAL: No joint swelling or deformity. EXTREMITIES: No cyanosis, clubbing, or pedal edema. NEUROLOGICAL: Gross neurological examination did not reveal any focal deficits. SKIN: No rashes. No petechiae Results CBC & Chem 7: 06/10/21 10:22 06/10/21 10:22 Labs: Abnormal Lab Results - Last 24 Hours (Table) 06/10/21 06/10/21 Range/Units 10: 10:22 WBC 15.0 H (3.8-10.6) k/uL RDW 16.5 H (11.5-15.5) % Neutrophils # 12.7 H (1.3-7.7) k/uL Chloride 109 H (98-107) mmol/L Carbon Dioxide 12 L (22-30) mmol/L BUN 43 H (7-17) mg/dL Creatinine 2.08 H (0.52-1.04) mg/dL Glucose 156 H (74-99) mg/dL Calcium 10.9 H (8.4-10.2) mg/dL AST 40 H (14-36) U/L Alkaline Phosphatase 286 H (38-126) U/L Albumin 3.4 L (3.5-5.0) g/dL Assessment and Plan Assessment: Thickened wall urinary suspicious for cystitis, malignancy not excluded. Ass ociated with recent history of hematuria, associated with Worsening Abdominal pain mild acute kidney injury Hypodense uterine mass suspicious for fibroids. Malignancy not excluded Enlarging Retroperitoneal lymphadenopathy necrotic center transformation. Rule out malignancy versus others Infraumbilical hernia with soft tissue density 1.7 x 1.7 cm suspicious to be lymph nodes. 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 Follow-up urine analysis and urine culture Check pro-calcitonin Start multiple vitamins Urologist consult Allocations Clerk consult Labs and medication were reviewed.. Continue same treatment. Continue with symptomatic treatment. Resume home medication. Monitor lytes and vitals. DVT and GI prophylaxis. Further recommendations depends on the clinical course of the patient DVT prophylaxis: Subcutaneous heparin GI Prophylaxis: Pepcid Prognosis is guarded
[2021-06-10] MEDS ORDERED: IOPAMIDOL CONTRAST (ORAL USE) VIAL PO PRN (15:26)
--- NOTE | 2021-06-10 15:26 | P.GSCN ---
History of Present Illness Consult date: 06/10/21 History of present illness: CHIEF COMPLAINT: Lower abdominal pain HISTORY OF PRESENT ILLNESS: This is a 70-year-old female who presented to the emergency department with complaints of lower abdominal pain and difficulty with urinating for the last 2 months. Patient reports that she was seeing a urologist and had a CAT scan completed and would not get the results until June. She reports that her symptoms continued to worsen and she has had no improvement. She has been having difficulty with urinating and is only able to void very small amounts of urine. She reports that she's had some hematuria. And now she is not sure if the urine is pinkish in color or if she's having some vaginal discharge. She reports having very small bowel movements and decrease in appetite. She is having flatus. She has had an umbilical hernia repair. She had a computed tomography scan outpatient abdomen with IV contrast completed outpatient on 05/31/2021 which demonstrated increasing size of multiple enlarged retroperitoneal lymph nodes, internal hyperdensity of these lymph nodes just internal necrosis. Hypodense mass at the uterine fundus likely related to a fibroid however malignancy is not excluded, recommend pelvic ultrasound. I'll distended urinary bladder with irregular wall thickening and perivesicular inflammatory changes correlate for cystitis versus malignant involvement. Skin is thickening and subcutaneous edema of the left lower abdominal wall related to cellulitis. Patient denies any fever or chills or sweats. She also denies any cold symptoms such as cough, loss of taste or smell. She is found to be coded positive. Patient is frustrated due to lack of answers in the outpatient setting. She denies any nausea but did have an episode of vomiting when her pain became very severe. Patient does have Franco catheter in place. And has stan singer consultants on the case. PAST MEDICAL HISTORY: Diabetes Mellitus, Hyperlipidemia, Hypertension, Osteoarthritis (OA), Thyroid Disorder PAST SURGICAL HISTORY: Umbilical hernia repair and tumor removed that was cancerous MEDICATIONS: See list. ALLERGIES: See list. SOCIAL HISTORY: No illicit drug use. REVIEW OF SYSTEMS: CONSTITUTIONAL: Denies fever or chills. HEENT: Denies blurred vision, vision changes, or eye pain. Denies hemoptysis CARDIOVASCULAR: Denies chest pain or pressure. RESPIRATORY: No shortness of breath. GASTROINTESTINAL: See HPI for pertinent findings HEMATOLOGIC: Denies bleeding disorders. GENITOURINARY: Denies any blood in urine or increased urinary frequency. SKIN: Denies pruitis. Denies rash. PHYSICAL EXAM: VITAL SIGNS: Reviewed GENERAL: Well-developed in no acute distress. HEENT: No sclera icterus. Extraocular movements grossly intact. Moist buccal mucosa. Head is atraumatic, normocephalic. No nasal drainage. ABDOMEN: Soft. Obese. Nondistended. Abdominal fold with yeast-type findings. NEUROLOGIC: Alert and oriented. Cranial nerves II through XII grossly intact. LABORATORY DATA: WBC 15.2 HGB 12.2 platelets 428 Sodium 138 potassium 4.3 BUN 43 creatinine 2.08 AST 40 alk phos 286 lipase 47 Urinalysis positive UTI COVID-19 detected IMAGING: pelvic ultrasound complex hypoactive area involving the uterine fundus measuring 7.2 cm most likely in the basis of uterine fibroid. Other etiologies not excluded and MRI is recommended ASSESSMENT: 1. Abdominal pain 2. Candidiasis of abdominal fold 3. Multiple Enlarging retroperitoneal lymphadenopathy with internal hyperdensity of the lymph node suggesting internal necrosis 4. Urinary Bladder with irregular wall thickening 5. UTI 6. Acute renal failure 7. Urinary retention PLAN: -Ordered computed tomography scan and pelvis with oral contrast -Apply nystatin powder to abdominal fold -Agree with consulting urology, nephrology and SPECIAL SYSTEMS TECHNICIAN service -Further recommendations forthcoming depending on CAT scan results Thank you for this consultation Physician Fish Flipper note has been reviewed by physician. Signing provider agrees with the documented findings, assessment, and plan of care. Past Medical History Past Medical History: Cancer, Diabetes Mellitus, Hyperlipidemia, Hypertension, Osteoarthritis (OA), Thyroid Disorder Additional Past Medical History / Comment(s): diverticulitis, "umb hernia repair and tumor removed-was cancerous" sx took care of it no chemo or radiation History of Any Multi-Drug Resistant Organisms: None Reported Past Surgical History: Hernia Repair Additional Past Surgical History / Comment(s): umb hernia repair and tumor removed-was cancerous, 1 dental implant Past Anesthesia/Blood Transfusion Reactions: No Reported Reaction Additional Past Anesthesia/Blood Transfusion Reaction / Comm: "has never received any blood" Past Psychological History: No Psychological Hx Reported Past Alcohol Use History: None Reported Past Drug Use History: None Reported - Past Family History Mother Family Medical History: Cancer, Diabetes Mellitus, Hyperlipidemia, Hypertension Father Family Medical History: CVA/TIA, Diabetes Mellitus, Hyperlipidemia, Hypertension Medications and Allergies Home Medications Medication Instructions Recorded Confirmed Type Insulin Detemir (Levemir) [Levemir] 50 unit SQ HS 05/13/18 06/10/21 History NIFEdipine [NIFEdipine ER] 90 mg PO DAILY 05/13/18 06/10/21 History Empagliflozin [Jardiance] 10 mg PO DAILY 06/10/21 06/10/21 History INSULIN ASPART (NovoLOG) [NovoLOG 10 unit SQ AC-BID 06/10/21 06/10/21 History (formulary)] Levothyroxine Sodium [Synthroid] 175 mcg PO DAILY 06/10/21 06/10/21 History Rosuvastatin [Crestor] 20 mg PO DAILY 06/10/21 06/10/21 History Triamterene-Hctz 37.5-25Mg 1 cap PO DAILY 06/10/21 06/10/21 History [Dyazide 37.5-25 Capsule] lisinopriL [Zestril] 5 mg PO DAILY 06/10/21 06/10/21 History Allergies Allergy/AdvReac Type Severity Reaction Status Date / Time amoxicillin Allergy Unknown Verified 06/10/21 11:38 Sulfa (Sulfonamide Allergy Rash/Hives Verified 06/10/21 11:38 Antibiotics) Surgical - Exam Vital Signs Temp Pulse Resp Pulse Ox 98.2 F 81 22 99 06/10/21 08:31 06/10/21 08:31 06/10/21 08:31 06/10/21 08:31 Results - Labs 06/10/21 10:22 06/10/21 10:22 Abnormal Lab Results - Last 24 Hours (Table) 06/10/21 06/10/21 06/10/21 Range/Units 10:22 10:22 13:10 WBC 15.0 H (3.8-10.6) k/uL RDW 16.5 H (11.5-15.5) % Neutrophils # 12.7 H (1.3-7.7) k/uL Chloride 109 H (98-107) mmol/L Carbon Dioxide 12 L (22-30) mmol/L BUN 43 H (7-17) mg/dL Creatinine 2.08 H (0.52-1.04) mg/dL Glucose 156 H (74-99) mg/dL Calcium 10.9 H (8.4-10.2) mg/dL AST 40 H (14-36) U/L Alkaline Phosphatase 286 H (38-126) U/L Albumin 3.4 L (3.5-5.0) g/dL Urine Appearance Cloudy H (Clear) Urine Protein Trace H (Negative) Urine Glucose (UA) 3+ H (Negative) Urine Blood Large H (Negative) Ur Leukocyte Esterase Large H (Negative) Urine RBC 104 H (0-5) /hpf Urine WBC >182 H (0-5) /hpf Urine WBC Clumps Few H (None) /hpf Urine Bacteria Many H (None) /hpf Urine Mucus Rare H (None) /hpf Coronavirus (PCR) (Not Detectd) 06/10/21 Range/Units 13:17 WBC (3.8-10.6) k/uL RDW (11.5-15.5) % Neutrophils # (1.3-7.7) k/uL Chloride (98-107) mmol/L Carbon Dioxide (22-30) mmol/L BUN (7-17) mg/dL Creatinine (0.52-1.04) mg/dL Glucose (74-99) mg/dL Calcium (8.4-10.2) mg/dL AST (14-36) U/L Alkaline Phosphatase (38-126) U/L Albumin (3.5-5.0) g/dL Urine Appearance (Clear) Urine Protein (Negative) Urine Glucose (UA) (Negative) Urine Blood (Negative) Ur Leukocyte Esterase (Negative) Urine RBC (0-5) /hpf Urine WBC (0-5) /hpf Urine WBC Clumps (None) /hpf Urine Bacteria (None) /hpf Urine Mucus (None) /hpf Coronavirus (PCR) Detected A (Not Detectd) Diabetes panel 06/10/21 Range/Units 10:22 Sodium 138 (137-145) mmol/L Potassium 4.3 (3.5-5.1) mmol/L Chloride 109 H (98-107) mmol/L Carbon Dioxide 12 L (22-30) mmol/L BUN 43 H (7-17) mg/dL Creatinine 2.08 H (0.52-1.04) mg/dL Glucose 156 H (74-99) mg/dL Calcium 10.9 H (8.4-10.2) mg/dL AST 40 H (14-36) U/L ALT 17 (4-34) U/L Alkaline Phosphatase 286 H (38-126) U/L Total Protein 7.7 (6.3-8.2) g/dL Albumin 3.4 L (3.5-5.0) g/dL Calcium panel 06/10/21 Range/Units 10:22 Calcium 10.9 H (8.4-10.2) mg/dL Albumin 3.4 L (3.5-5.0) g/dL Pituitary panel 06/10/21 Range/Units 10:22 Sodium 138 (137-145) mmol/L Potassium 4.3 (3.5-5.1) mmol/L Chloride 109 H (98-107) mmol/L Carbon Dioxide 12 L (22-30) mmol/L BUN 43 H (7-17) mg/dL Creatinine 2.08 H (0.52-1.04) mg/dL Glucose 156 H (74-99) mg/dL Calcium 10.9 H (8.4-10.2) mg/dL Adrenal panel 06/10/21 Range/Units 10:22 Sodium 138 (137-145) mmol/L Potassium 4.3 (3.5-5.1) mmol/L Chloride 109 H (98-107) mmol/L Carbon Dioxide 12 L (22-30) mmol/L BUN 43 H (7-17) mg/dL Creatinine 2.08 H (0.52-1.04) mg/dL Glucose 156 H (74-99) mg/dL Calcium 10.9 H (8.4-10.2) mg/dL Total Bilirubin 0.5 (0.2-1.3) mg/dL AST 40 H (14-36) U/L ALT 17 (4-34) U/L Alkaline Phosphatase 286 H (38-126) U/L Total Protein 7.7 (6.3-8.2) g/dL Albumin 3.4 L (3.5-5.0) g/dL
--- NOTE | 2021-06-10 18:00 | CT ---
EXAMINATION TYPE: CT abdomen pelvis wo con DATE OF EXAM: 06/10/2021 COMPARISON: CT abdomen pelvis 05/13/2018 HISTORY: Abdominal pain CT DLP: 1634 mGycm Automated exposure control for dose reduction was used. TECHNIQUE: Helical acquisition of images was performed from the lung bases through the pelvis. FINDINGS: LUNG BASES: A few areas of groundglass opacity are seen at the right lung base. LIVER/GB: No significant abnormality is appreciated. PANCREAS: Fatty atrophy. No ductal dilatation. SPLEEN: No significant abnormality is seen. ADRENALS: No significant abnormality is seen. KIDNEYS: Interval development of bilateral to moderate hydroureteronephrosis. There is new haziness o f the renal sinus fat on the left. FREE AIR: No free air is visualized RETROPERITONEAL ADENOPATHY: There are numerous enlarged retroperitoneal nodes. REPRODUCTIVE ORGANS: Uterus is enlarged measuring approximately 8 x 8 x 10 cm on axial imaging. There is a 6 x 4 cm left adnexal mass certain if this represents an enlarged lymph node versus an abnormal ovary.. URINARY BLADDER: The bladder wall is thickened and irregular with marked perivesicular fat stranding and a moderate amount of intravesicular gas. PELVIC ADENOPATHY: There are numerous enlarged and nonenlarged lymph nodes in the pelvis OSSEOUS STRUCTURES: No significant abnormality is seen. BOWEL: Diverticulosis coli without evidence of acute diverticulitis. OTHER: Diastases recti. There is some cutaneous/subcutaneous fat stranding in the left lower quadrant that is nonspecific. IMPRESSION: 1. EXTENSIVE PERITONEAL AND PELVIC ADENOPATHY WITH INTERVAL DEVELOPMENT OF BILATERAL MILD TO MODERATE HYDROURETERONEPHROSIS LIKELY ON THE BASIS OF DISTAL URETERAL OBSTRUCTION SECONDARY TO ADENOPATHY 2. BLADDER WALL IS THICKENED AND IRREGULAR WITH A MODERATE AMOUNT OF PERIVESICULAR FAT STRANDING. INT RAVESICULAR AIR IS LIKELY POSTPROCEDURAL HOWEVER GAS PRODUCING INFECTIOUS ORGANISM IS WITHIN THE DIFF ERENTIAL DIAGNOSIS. 3. THE UTERUS IS ENLARGED AND THE ENDOMETRIUM THOUGH NOT WELL SEEN APPEARS THICKENED.
[2021-06-10] MEDS: MORPHINE SULFATE 4 MG/ML SYRINGE IV PRN (18:56)
[2021-06-10] MEDS: FAMOTIDINE 20 MG/2 ML VIAL IV SCH (21:16)
[2021-06-10] MEDS: HEPARIN SODIUM,PORCINE/PF 5,000 UNIT/0.5 ML SYRINGE SQ SCH (21:17)
[2021-06-11] MEDS: MORPHINE SULFATE 4 MG/ML SYRINGE IV PRN ×4 (01:19→21:58)
[2021-06-11 05:41] LABS: ALT 19 U/L (4-34); AST 49 U/L (14-36); African American GFR (CKD) 30 (>60 ml/min/1.73 sqM); Albumin 3.4 g/dL (3.5-5.0); Albumin/Globulin Ratio 0.8; Alkaline Phosphatase 258 U/L (38-126); Anion Gap 10 mmol/L; Blood Urea Nitrogen 41 mg/dL (7-17); Calcium 10.6 mg/dL (8.4-10.2); Carbon Dioxide 20 mmol/L (22-30); Chloride 107 mmol/L (98-107); Globulin 4.1 g/dL; Glucose 116 mg/dL (74-99); Magnesium 2.6 mg/dL (1.6-2.3); Non-African American GFR(CKD) 26 (>60 ml/min/1.73 sqM); Potassium 4.7 mmol/L (3.5-5.1); Sodium 137 mmol/L (137-145); Total Bilirubin 0.4 mg/dL (0.2-1.3); Total Protein 7.5 g/dL (6.3-8.2)
[2021-06-11] MEDS: ZINC SULFATE 220 MG CAP PO SCH (08:45)
[2021-06-11] MEDS: NYSTATIN 100,000 UNIT/GM POWD 15 GM TOPICAL SCH ×4 (08:46→22:58)
[2021-06-11] MEDS: SODIUM CHLORIDE 0.9% 1,000 ML IV SCH ×3 (08:46→22:50)
[2021-06-11] MEDS: ASCORBIC ACID 500 MG TAB PO SCH (08:46)
[2021-06-11] MEDS: FAMOTIDINE 20 MG/2 ML VIAL IV SCH ×2 (08:46→20:40)
[2021-06-11] MEDS: CHOLECALCIFEROL 25 MCG (1000 IU) TABLET PO SCH (08:46)
[2021-06-11 09:17] LABS: Basophils # (A) 0.03 X 10*3/uL (0.00-0.10); Basophils % (A) 0.2 %; Eosinophils # (A) 0.06 X 10*3/uL (0.04-0.35); Eosinophils % (A) 0.4 %; HGB 11.6 g/dL (12.0-15.0); Lymphocytes # (A) 1.67 X 10*3/uL (0.90-5.00); MCH 24.9 pg (27.0-32.0); MCHC 28.3 g/dL (32.0-37.0); MCV 88.2 fL (80.0-97.0); Mean Platelet Volume 9.6 fL (9.5-12.2); Monocytes # (A) 0.88 X 10*3/uL (0.20-1.00); Monocytes % (A) 5.3 %; Neutrophils # (A) 13.84 X 10*3/uL (1.80-7.70); Platelet Count 393 X 10*3/uL (140-440); RBC 4.65 X 10*6/uL (4.10-5.20); RDW 17.9 % (11.5-14.5); WBC 16.66 X 10*3/uL (4.50-10.00)
[2021-06-11] MEDS: ACETAMINOPHEN TAB 325 MG TAB PO PRN ×2 (10:52→19:52)
--- NOTE | 2021-06-11 12:47 | P.GSCN ---
History of Present Illness Consult date: 06/11/21 Reason for Consult: gross hematuria, bilateral hydronephrosis History of present illness: this is a 70-year-old female presented to the hospital with severe abdominal pain. She indicated she's been having lower abdominal pain, associated with intermittent gross hematuria for the past 3 months. She previously followed up with urologist down in [facility], she indicated she underwent a cystoscopy in February that was within normal limits. Was advised to undergo a CT scan, which she subsequently underwent recently, but is unsure of the results of it. She indicated that the abdominal pain has been progressively getting worse. she underwent a CT scan on presentation that showed a thickened bladder, with stranding. There was also evidence of extensive lymphadenopathy, and bilateral mild hydronephrosis. additionally there was evidence of air within the bladder, and the UA is concerning for UTI. Review of Systems - Constitutional Denies fever, Denies weight loss - Cardiovascular Denies chest pain, Denies shortness of breath - Respiratory Denies cough, Denies 7 - Gastrointestinal Denies abdominal pain, Denies vomiting - Genitourinary Genitourinary: Reports flank pain, Reports hematuria - Neurological Denies headaches, Denies syncope Past Medical History Past Medical History: Cancer, Diabetes Mellitus, Hyperlipidemia, Hypertension, Osteoarthritis (OA), Thyroid Disorder Additional Past Medical History / Comment(s): diverticulitis, "umb hernia repair and tumor removed-was cancerous" sx took care of it no chemo or radiation History of Any Multi-Drug Resistant Organisms: None Reported Past Surgical History: Hernia Repair Additional Past Surgical History / Comment(s): umb hernia repair and tumor removed-was cancerous, 1 dental implant Past Anesthesia/Blood Transfusion Reactions: No Reported Reaction Additional Past Anesthesia/Blood Transfusion Reaction / Comm: "has never received any blood" Past Psychological History: No Psychological Hx Reported Past Alcohol Use History: None Reported Past Drug Use History: None Reported - Past Family History Mother Family Medical History: Cancer, Diabetes Mellitus, Hyperlipidemia, Hypertension Father Family Medical History: CVA/TIA, Diabetes Mellitus, Hyperlipidemia, Hypertension Medications and Allergies Home Medications Medication Instructions Recorded Confirmed Type Insulin Detemir (Levemir) [Levemir] 50 unit SQ HS 05/13/18 06/10/21 History NIFEdipine [NIFEdipine ER] 90 mg PO DAILY 05/13/18 06/10/21 History Empagliflozin [Jardiance] 10 mg PO DAILY 06/10/21 06/10/21 History INSULIN ASPART (NovoLOG) [NovoLOG 10 unit SQ AC-BID 06/10/21 06/10/21 History (formulary)] Levothyroxine Sodium [Synthroid] 175 mcg PO DAILY 06/10/21 06/10/21 History Rosuvastatin [Crestor] 20 mg PO DAILY 06/10/21 06/10/21 History Triamterene-Hctz 37.5-25Mg 1 cap PO DAILY 06/10/21 06/10/21 History [Dyazide 37.5-25 Capsule] lisinopriL [Zestril] 5 mg PO DAILY 06/10/21 06/10/21 History Allergies Allergy/AdvReac Type Severity Reaction Status Date / Time amoxicillin Allergy Unknown Verified 06/10/21 11:38 Sulfa (Sulfonamide Allergy Rash/Hives Verified 06/10/21 11:38 Antibiotics) Surgical - Exam Vital Signs Temp Pulse Resp Pulse Ox 98.2 F 81 22 99 06/10/21 08:31 06/10/21 08:31 06/10/21 08:31 06/10/21 08:31 - General no distress, moderate pain - Eyes PERRL, normal ocular movement - ENT normal nares, normal mucosa - Respiratory normal expansion, normal respiratory effort - Abdomen Abdomen: soft, non tender - Psychiatric oriented to time, oriented to person, oriented to place Results - Labs 06/11/21 04:24 06/11/21 04:24 Abnormal Lab Results - Last 24 Hours (Table) 06/10/21 06/10/21 06/11/21 Range/Units 13:10 13:17 04:24 WBC (4.50-10.00) X 10*3/uL Hgb (12.0-15.0) g/dL MCH (27.0-32.0) pg MCHC (32.0-37.0) g/dL RDW (11.5-14.5) % Immature Gran # (0.00-0.04) X 10*3/uL Neutrophils # (1.80-7.70) X 10*3/uL Carbon Dioxide (22-30) mmol/L BUN (7-17) mg/dL Creatinine (0.52-1.04) mg/dL Glucose (74-99) mg/dL Calcium (8.4-10.2) mg/dL Magnesium (1.6-2.3) mg/dL AST (14-36) U/L Alkaline Phosphatase (38-126) U/L Albumin (3.5-5.0) g/dL Procalcitonin 1.30 H (0.02-0.09) ng/mL Urine Appearance Cloudy H (Clear) Urine Protein Trace H (Negative) Urine Glucose (UA) 3+ H (Negative) Urine Blood Large H (Negative) Ur Leukocyte Esterase Large H (Negative) Urine RBC 104 H (0-5) /hpf Urine WBC >182 H (0-5) /hpf Urine WBC Clumps Few H (None) /hpf Urine Bacteria Many H (None) /hpf Urine Mucus Rare H (None) /hpf Coronavirus (PCR) Detected A (Not Detectd) 06/11/21 06/11/21 Range/Units 04:24 04:24 WBC 16.66 H (4.50-10.00) X 10*3/uL Hgb 11.6 L (12.0-15.0) g/dL MCH 24.9 L (27.0-32.0) pg MCHC 28.3 L (32.0-37.0) g/dL RDW 17.9 H (11.5-14.5) % Immature Gran # 0.18 H (0.00-0.04) X 10*3/uL Neutrophils # 13.84 H (1.80-7.70) X 10*3/uL Carbon Dioxide 20 L (22-30) mmol/L BUN 41 H (7-17) mg/dL Creatinine 1.95 H (0.52-1.04) mg/dL Glucose 116 H (74-99) mg/dL Calcium 10.6 H (8.4-10.2) mg/dL Magnesium 2.6 H (1.6-2.3) mg/dL AST 49 H (14-36) U/L Alkaline Phosphatase 258 H (38-126) U/L Albumin 3.4 L (3.5-5.0) g/dL Procalcitonin (0.02-0.09) ng/mL Urine Appearance (Clear) Urine Protein (Negative) Urine Glucose (UA) (Negative) Urine Blood (Negative) Ur Leukocyte Esterase (Negative) Urine RBC (0-5) /hpf Urine WBC (0-5) /hpf Urine WBC Clumps (None) /hpf Urine Bacteria (None) /hpf Urine Mucus (None) /hpf Coronavirus (PCR) (Not Detectd) Microbiology - Last 24 Hours (Table) 06/10/21 13:10 Urine Culture - Preliminary Urine,Clean Catch Diabetes panel 06/11/21 Range/Units 04:24 Sodium 137 (137-145) mmol/L Potassium 4.7 (3.5-5.1) mmol/L Chloride 107 (98-107) mmol/L Carbon Dioxide 20 L (22-30) mmol/L BUN 41 H (7-17) mg/dL Creatinine 1.95 H (0.52-1.04) mg/dL Glucose 116 H (74-99) mg/dL Calcium 10.6 H (8.4-10.2) mg/dL AST 49 H (14-36) U/L ALT 19 (4-34) U/L Alkaline Phosphatase 258 H (38-126) U/L Total Protein 7.5 (6.3-8.2) g/dL Albumin 3.4 L (3.5-5.0) g/dL Calcium panel 06/11/21 Range/Units 04:24 Calcium 10.6 H (8.4-10.2) mg/dL Albumin 3.4 L (3.5-5.0) g/dL Pituitary panel 06/11/21 Range/Units 04:24 Sodium 137 (137-145) mmol/L Potassium 4.7 (3.5-5.1) mmol/L Chloride 107 (98-107) mmol/L Carbon Dioxide 20 L (22-30) mmol/L BUN 41 H (7-17) mg/dL Creatinine 1.95 H (0.52-1.04) mg/dL Glucose 116 H (74-99) mg/dL Calcium 10.6 H (8.4-10.2) mg/dL Adrenal panel 06/11/21 Range/Units 04:24 Sodium 137 (137-145) mmol/L Potassium 4.7 (3.5-5.1) mmol/L Chloride 107 (98-107) mmol/L Carbon Dioxide 20 L (22-30) mmol/L BUN 41 H (7-17) mg/dL Creatinine 1.95 H (0.52-1.04) mg/dL Glucose 116 H (74-99) mg/dL Calcium 10.6 H (8.4-10.2) mg/dL Total Bilirubin 0.4 (0.2-1.3) mg/dL AST 49 H (14-36) U/L ALT 19 (4-34) U/L Alkaline Phosphatase 258 H (38-126) U/L Total Protein 7.5 (6.3-8.2) g/dL Albumin 3.4 L (3.5-5.0) g/dL Assessment and Plan Assessment: 70-year-old female admitted with abdominal pain. CT on presentation showed extensive lymphadenopathy, thickened bladder with bilateral hydronephrosis. discussed with her the finding is highly concerning for muscle invasive metastatic prostate cancer. Given the thickened bladder bilateral hydronephrosis, gross hematuria and lymphadenopathy. Discussed the next step would be performing a bladder biopsy. Discussed given her positive UA, and the air in the bladder will need the resolution of the UTI prior to proceeding with any bladder biopsy. Discussed also given her bilateral hydronephrosis the planned in doing retrograde pyelogram, and possible stent placement given her flank pain, and creatinine which is elevated at 1.88. discussed with her the risk and the benefit of the procedure Plan: -Continue ceftriaxone, follow up on urine culture. -We'll arrange for TURBT, bilateral retrograde pyelogram, and possible stent placement once the UTI is resolved
[2021-06-11] MEDS: HEPARIN SODIUM,PORCINE/PF 5,000 UNIT/0.5 ML SYRINGE SQ SCH ×2 (13:22→20:40)
--- NOTE | 2021-06-11 14:08 | P.PN ---
Subjective Progress Note Date: 06/11/21 Principal diagnosis: CHIEF COMPLAINT: Abdominal pain HISTORY OF PRESENT ILLNESS: Patient reports slight improvement in her abdominal pain. Urology is recommending further workup once UTI is resolved. Patient's repeat computed tomography scan abdomen and pelvis with oral contrast shows extensive peritoneal and Pelvic adenopathy with interval development of bilateral mild to moderate hydroureter nephrosis likely on the basis of distal ureteral obstruction secondary to adenopathy. Bladder wall is thickened and irregular with a moderate amount of perivesicular fat stranding. Intravesicular air is likely postprocedural however gas producing infectious organism is within the differential diagnosis. The uterus is enlarged and the endometrium though not well seen appears thickened. Patient is tolerating diet. Afebrile. WBC 16.6 Hgb 11.6 creatinine is down to 1.95 Patient seen and examined with Dr. terrazas PHYSICAL EXAM: VITAL SIGNS: Reviewed. GENERAL: Well-developed in no acute distress. HEENT: No sclera icterus. Extraocular movements grossly intact. Moist buccal mucosa. Head is atraumatic, normocephalic. ABDOMEN: Soft. Nondistended. NEUROLOGIC: Alert and oriented. Cranial nerves II through XII grossly intact. ASSESSMENT: 1. Abdominal pain 2. Candidiasis of abdominal fold 3. Extensive peritoneal and pelvic adenopathy 4. Bilateral hydroureteronephrosis and distal ureteral secondary to adenopathy 5. Urinary Bladder with irregular wall thickening 6. UTI 7. Acute renal failure 8. COVID-19 positive PLAN: -No general surgical intervention planned -Continue urology workup -Continue nystatin powder for abdominal skin fold candidiasis Physician Slot Tag Inserter note has been reviewed by physician. Signing provider agrees with the documented findings, assessment, and plan of care. Objective - Vital Signs Vital signs: Vital Signs Temp 97.8 F 06/11/21 10:50 Pulse 82 06/11/21 10:50 Resp 18 06/11/21 10:50 BP 152/82 06/11/21 10:50 Pulse Ox 99 06/11/21 10:50 Intake & Output 06/10/21 06/11/21 06/11/21 18:59 06:59 18:59 Output Total 300 500 Balance -300 -500 Weight 113.398 kg Output: Urine 300 500 Uretheral (Franco) 300 - Labs CBC & Chem 7: 06/11/21 04:24 06/11/21 04:24 Labs: Abnormal Lab Results - Last 24 Hours (Table) 06/10/21 06/11/21 06/11/21 Range/Units 13:10 04:24 04:24 WBC 16.66 H (4.50-10.00) X 10*3/uL Hgb 11.6 L (12.0-15.0) g/dL MCH 24.9 L (27.0-32.0) pg MCHC 28.3 L (32.0-37.0) g/dL RDW 17.9 H (11.5-14.5) % Immature Gran # 0.18 H (0.00-0.04) X 10*3/uL Neutrophils # 13.84 H (1.80-7.70) X 10*3/uL Carbon Dioxide (22-30) mmol/L BUN (7-17) mg/dL Creatinine (0.52-1.04) mg/dL Glucose (74-99) mg/dL Calcium (8.4-10.2) mg/dL Magnesium (1.6-2.3) mg/dL AST (14-36) U/L Alkaline Phosphatase (38-126) U/L Albumin (3.5-5.0) g/dL Procalcitonin 1.30 H (0.02-0.09) ng/mL Urine Appearance Cloudy H (Clear) Urine Protein Trace H (Negative) Urine Glucose (UA) 3+ H (Negative) Urine Blood Large H (Negative) Ur Leukocyte Esterase Large H (Negative) Urine RBC 104 H (0-5) /hpf Urine WBC >182 H (0-5) /hpf Urine WBC Clumps Few H (None) /hpf Urine Bacteria Many H (None) /hpf Urine Mucus Rare H (None) /hpf 06/11/21 Range/Units 04:24 WBC (4.50-10.00) X 10*3/uL Hgb (12.0-15.0) g/dL MCH (27.0-32.0) pg MCHC (32.0-37.0) g/dL RDW (11.5-14.5) % Immature Gran # (0.00-0.04) X 10*3/uL Neutrophils # (1.80-7.70) X 10*3/uL Carbon Dioxide 20 L (22-30) mmol/L BUN 41 H (7-17) mg/dL Creatinine 1.95 H (0.52-1.04) mg/dL Glucose 116 H (74-99) mg/dL Calcium 10.6 H (8.4-10.2) mg/dL Magnesium 2.6 H (1.6-2.3) mg/dL AST 49 H (14-36) U/L Alkaline Phosphatase 258 H (38-126) U/L Albumin 3.4 L (3.5-5.0) g/dL Procalcitonin (0.02-0.09) ng/mL Urine Appearance (Clear) Urine Protein (Negative) Urine Glucose (UA) (Negative) Urine Blood (Negative) Ur Leukocyte Esterase (Negative) Urine RBC (0-5) /hpf Urine WBC (0-5) /hpf Urine WBC Clumps (None) /hpf Urine Bacteria (None) /hpf Urine Mucus (None) /hpf Microbiology - Last 24 Hours (Table) 06/10/21 13:10 Urine Culture - Preliminary Urine,Clean Catch
--- NOTE | 2021-06-11 15:35 | CONS ---
CONSULTATION REASON FOR CONSULT: Renal failure. HISTORY OF PRESENT ILLNESS: Patient is a 70-year-old female who is admitted to the hospital with complaints of abdominal pain. Her CT of the abdomen shows evidence of retroperitoneal lymphadenopathy with thickening of the urinary bladder and a uterine fundal mass. Patient currently has an indwelling Franco catheter. She denies any previous history of chronic kidney disease, although patient had an episode of acute kidney injury in 2018, which was mostly prerenal associated with intravascular volume depletion. Serum creatinine was 2.0 on initial admission and it is at 1.9 now. Blood pressure has not been significantly low. Patient was maintained on ALEX inhibitors and diuretics prior to admission. I do not see any nonsteroidal anti-inflammatory agents on her med list. Patient tested positive for COVID-19. Her chest x-ray from yesterday does not show any acute process. PAST MEDICAL HISTORY: Significant for type 2 diabetes, hyperlipidemia, osteoarthritis, hypothyroidism, diverticulosis, hypertension. PAST SURGICAL HISTORY: Hernia repair, tumor removal, dental implant. Details of the tumor not known. SOCIAL HISTORY: Negative for smoking, drug abuse or alcohol abuse. MEDICATIONS: Medications prior to admission included insulin, nifedipine, Jardiance, Synthroid, Crestor, Dyazide, Zestril. ALLERGIES: ALLERGIES INCLUDE AMOXICILLIN, SULFA. PHYSICAL EXAMINATION: Patient is comfortable, awake, not in any acute distress. Alert, oriented x3. Blood pressure was 152/82, heart rate 82 per minute. She is afebrile. Examination shows no evidence of edema in lower extremities. MAINTENANCE MAN exam grossly intact. Lungs and heart are not examined. LABS: Sodium 137, potassium 4.7, chloride 107. CO2 is 20, BUN 41, creatinine 1.9, hemoglobin 11.6. ASSESSMENT: 1. Acute kidney injury, prerenal as well as obstructive uropathy, currently with indwelling Franco catheter with good urine output. Serum creatinine is slightly improved. Will re-evaluate in a.m. Patient also has hypercalcemia, which is definitely contributing to the acute kidney injury. 2. Positive COVID-19 PCR with chest x-ray currently not showing any abnormalities. Patient is maintained on room air. 3. Mild hypercalcemia with calcium of 10.6 and 10.9, possibly related to thiazide diuretics that patient was taking at home. She denies any calcium supplements. Will continue with the IV fluids and repeat labs in a.m. 4. Bilateral hydronephrosis with retroperitoneal adenopathy, status post Franco catheter placement. Bladder wall is thickened and irregular. Urology has been consulted. 5. Pyuria. Rule out urinary tract infection. Urine culture is pending. Patient is maintained on empiric antibiotics. PLAN: Continue with IV fluids. Hold thiazide diuretics. Repeat labs in a.m. Discontinue Toradol and consult Urology. Thank you for this consultation. Will continue to follow the patient with you during her hospitalization. MMODL / IJN: [id number] /
[2021-06-11 17:03] LABS: Glucose,Whole Blood 102 mg/dL (75-99)
[2021-06-11 20:19] LABS: Glucose,Whole Blood 89 mg/dL (75-99)
[2021-06-11] MEDS: INSULIN ASPART (NovoLOG) 100 UNIT/ML VIAL SQ SCH (20:40)
[2021-06-12] MEDS: MORPHINE SULFATE 4 MG/ML SYRINGE IV PRN ×3 (02:05→15:47)
[2021-06-12] MEDS: SODIUM CHLORIDE 0.9% 1,000 ML IV SCH ×2 (06:21→09:39)
[2021-06-12 06:58] LABS: Glucose,Whole Blood 100 mg/dL (75-99)
[2021-06-12] MEDS: INSULIN ASPART (NovoLOG) 100 UNIT/ML VIAL SQ SCH ×4 (09:00→20:42)
--- NOTE | 2021-06-12 09:05 | P.HPOB ---
History of Present Illness H&P Date: 06/12/21 Chief Complaint: abdominal pain 70 year old presented with abdominal pain. She says this pain has been going on since October. She went to her pcp and a urologist in [place]. They have not worked her up completely yet. A CT scan here showed adenopathy, bladder thickening and stranding. US showed a fibroid uterus which is why I was consulted. Her pain is right over her bladder and into her back. The pain with urination started 2 weeks ago. She was diagnosed with a UTI here and is being treated. Urology would like to do a bladder biopsy when the infection is resolv ed. Pt has no symptoms of covid 19 but did test positive on 06/10. Review of Systems All systems: negative Constitutional: Denies chills, Denies fever Eyes: denies blurred vision, denies pain Ears, nose, mouth and throat: Denies headache, Denies sore throat Cardiovascular: Denies chest pain, Denies shortness of breath Respiratory: Denies cough Gastrointestinal: Denies abdominal pain, Denies diarrhea, Denies nausea, Denies vomiting Genitourinary: Denies dysuria, Denies hematuria Musculoskeletal: Denies myalgias Integumentary: Denies pruritus, Denies rash Neurological: Denies numbness, Denies weakness Psychiatric: Denies anxiety, Denies depression Endocrine: Denies fatigue, Denies weight change Past Medical History Past Medical History: Cancer, Diabetes Mellitus, Hyperlipidemia, Hypertension, Osteoarthritis (OA), Thyroid Disorder Additional Past Medical History / Comment(s): diverticulitis, "umb hernia repair and tumor removed-was cancerous" sx took care of it no chemo or radiation History of Any Multi-Drug Resistant Organisms: None Reported Past Surgical History: Hernia Repair Additional Past Surgical History / Comment(s): umb hernia repair and tumor removed-was cancerous, 1 dental implant Past Anesthesia/Blood Transfusion Reactions: No Reported Reaction Additional Past Anesthesia/Blood Transfusion Reaction / Comment(s): "has never received any blood" Past Psychological History: No Psychological Hx Reported Past Alcohol Use History: None Reported Past Drug Use History: None Reported - Past Family History Mother Family Medical History: Cancer, Diabetes Mellitus, Hyperlipidemia, Hypertension Father Family Medical History: CVA/TIA, Diabetes Mellitus, Hyperlipidemia, Hypertension Medications and Allergies Home Medications Medication Instructions Recorded Confirmed Type Insulin Detemir (Levemir) [Levemir] 50 unit SQ HS 05/13/18 06/10/21 History NIFEdipine [NIFEdipine ER] 90 mg PO DAILY 05/13/18 06/10/21 History Empagliflozin [Jardiance] 10 mg PO DAILY 06/10/21 06/10/21 History INSULIN ASPART (NovoLOG) [NovoLOG 10 unit SQ AC-BID 06/10/21 06/10/21 History (formulary)] Levothyroxine Sodium [Synthroid] 175 mcg PO DAILY 06/10/21 06/10/21 History Rosuvastatin [Crestor] 20 mg PO DAILY 06/10/21 06/10/21 History Triamterene-Hctz 37.5-25Mg 1 cap PO DAILY 06/10/21 06/10/21 History [Dyazide 37.5-25 Capsule] lisinopriL [Zestril] 5 mg PO DAILY 06/10/21 06/10/21 History Allergies Allergy/AdvReac Type Severity Reaction Status Date / Time amoxicillin Allergy Unknown Verified 06/10/21 11:38 Sulfa (Sulfonamide Allergy Rash/Hives Verified 06/10/21 11:38 Antibiotics) Exam Osteopathic Statement: *. No significant issues noted on an osteopathic structural exam other than those noted in the History and Physical/Consult. Vital Signs Temp Pulse Pulse Resp BP BP Pulse Ox 06/12/21 05:24 97.5 F L 78 19 137/81 99 06/12/21 01:29 97.9 F 76 17 156/80 99 06/11/21 22:10 97.8 F 68 15 120/79 96 06/11/21 19:55 75 16 06/11/21 17:00 97.7 F 75 16 127/84 99 06/11/21 15:48 97.8 F 67 18 127/78 98 06/11/21 10:50 97.8 F 82 18 152/82 99 Intake and Output 06/11/21 06/12/21 06/12/21 22:59 06:59 14:59 Intake Total 118 Output Total 600 975 Balance -399 -975 Intake: Oral 118 Output: Urine 600 975 Other: Voiding Method Indwelling Catheter # Voids 2 Abdomen: soft, nondistended, tender in suprapubic area and bilateral flanks. Results Result Diagrams: 06/11/21 04:24 06/11/21 04:24 Abnormal Lab Results - Last 24 Hours (Table) 06/11/21 06/11/21 06/11/21 Range/Units 04:24 04:24 17:02 WBC 16.66 H (4.50-10.00) X 10*3/uL Hgb 11.6 L (12.0-15.0) g/dL MCH 24.9 L (27.0-32.0) pg MCHC 28.3 L (32.0-37.0) g/dL RDW 17.9 H (11.5-14.5) % Immature Gran # 0.18 H (0.00-0.04) X 10*3/uL Neutrophils # 13.84 H (1.80-7.70) X 10*3/uL POC Glucose (mg/dL) 102 H (75-99) mg/dL Procalcitonin 1.30 H (0.02-0.09) ng/mL 06/12/21 Range/Units 06:56 WBC (4.50-10.00) X 10*3/uL Hgb (12.0-15.0) g/dL MCH (27.0-32.0) pg MCHC (32.0-37.0) g/dL RDW (11.5-14.5) % Immature Gran # (0.00-0.04) X 10*3/uL Neutrophils # (1.80-7.70) X 10*3/uL POC Glucose (mg/dL) 100 H (75-99) mg/dL Procalcitonin (0.02-0.09) ng/mL Microbiology - Last 24 Hours (Table) 06/10/21 13:10 Urine Culture - Preliminary Urine,Clean Catch Gram Neg Bacilli Assessment and Plan (1) Fibroid uterus Current Visit: Yes Status: Acute Code(s): D25.9 - LEIOMYOMA OF UTERUS, UNSPECIFIED SNOMED Code(s): 31145932 (2) Abdominal lymphadenopathy Current Visit: Yes Status: Acute Code(s): R59.0 - LOCALIZED ENLARGED LYMPH NODES SNOMED Code(s): 219827100 (3) Abdominal pain Current Visit: Yes Status: Acute Code(s): R10.9 - UNSPECIFIED ABDOMINAL PAIN SNOMED Code(s): 10335285 (4) UTI (urinary tract infection) Current Visit: Yes Status: Acute Code(s): N39.0 - URINARY TRACT INFECTION, SITE NOT SPECIFIED SNOMED Code(s): 84099334 Plan: 1. adenopathy- I would like to wait for urology to do their bladder biopsy before I look into her uterus being the area of primary concern. At this point I think she has a benign fibroid uterus: of note- she has had no vaginal ble eding. I would like her to follow up with me outpatient for a pap and full pelvic exam.
[2021-06-12 09:14] LABS: Basophils # (A) 0.03 X 10*3/uL (0.00-0.10); Basophils % (A) 0.2 %; Eosinophils # (A) 0.12 X 10*3/uL (0.04-0.35); Eosinophils % (A) 0.8 %; HGB 11.7 g/dL (12.0-15.0); Lymphocytes # (A) 1.79 X 10*3/uL (0.90-5.00); Lymphocytes % (A) 11.7 %; MCHC 27.9 g/dL (32.0-37.0); MCV 89.7 fL (80.0-97.0); Mean Platelet Volume 9.6 fL (9.5-12.2); Monocytes # (A) 0.65 X 10*3/uL (0.20-1.00); Monocytes % (A) 4.2 %; Neutrophils # (A) 12.54 X 10*3/uL (1.80-7.70); Neutrophils % (A) 81.7 %; Platelet Count 372 X 10*3/uL (140-440); RBC 4.68 X 10*6/uL (4.10-5.20); RDW 18.2 % (11.5-14.5); WBC 15.34 X 10*3/uL (4.50-10.00)
[2021-06-12] MEDS: HYDROmorphone 0.5 MG/0.5 ML SYRINGE IVP PRN ×4 (09:33→22:17)
[2021-06-12] MEDS: ASCORBIC ACID 500 MG TAB PO SCH (09:36)
[2021-06-12] MEDS: ZINC SULFATE 220 MG CAP PO SCH (09:36)
[2021-06-12] MEDS: FAMOTIDINE 20 MG/2 ML VIAL IV SCH ×2 (09:36→21:13)
[2021-06-12] MEDS: HEPARIN SODIUM,PORCINE/PF 5,000 UNIT/0.5 ML SYRINGE SQ SCH ×2 (09:36→21:13)
[2021-06-12] MEDS: CHOLECALCIFEROL 25 MCG (1000 IU) TABLET PO SCH (09:36)
[2021-06-12] MEDS: NYSTATIN 100,000 UNIT/GM POWD 15 GM TOPICAL SCH ×3 (09:37→21:14)
[2021-06-12 09:39] LABS: African American GFR (CKD) 32.5 (60.0-200.0); Albumin 3.3 g/dL (3.8-4.9); Albumin/Globulin Ratio 0.79 (1.60-3.17); BUN/Creat Ratio 21.26 Ratio (12.00-20.00); Blood Urea Nitrogen 38.7 mg/dL (9.0-27.0); Calcium 11.2 mg/dL (8.7-10.3); Carbon Dioxide 15.2 mmol/L (20.0-27.5); Globulin 4.2 g/dL (1.6-3.3); Potassium 4.8 mmol/L (3.5-5.5); Total Bilirubin 0.3 mg/dL (0.30-1.20); Total Protein 7.5 g/dL (6.2-8.2)
[2021-06-12 11:24] LABS: Glucose,Whole Blood 93 mg/dL (75-99)
[2021-06-12] MEDS ORDERED: SODIUM CHLORIDE 0.9% 250 ML with PAMIDRONATE 30 MG IV ONE ×2 (13:00)
[2021-06-12] MEDS: DEXTROSE 5% IN WATER 1,000 ML with SODIUM BICARB (1 MEQ/ML) 150 ML IV SCH (14:23)
--- NOTE | 2021-06-12 14:31 | P.PN ---
Subjective Progress Note Date: 06/12/21 Principal diagnosis: CHIEF COMPLAINT: Abdominal pain HISTORY OF PRESENT ILLNESS: Patient reports slight improvement in her abdominal pain. Urology is recommending further workup including biopsy of bladder once UTI is resolved. Patient also seen by AIRPORT MAINTENANCE LABORER service recommending outpatient Pap and likely benign fibroid uterus. Patient sitting at the bedside chair. Tolerating diet. Afebrile. WBC 15.34 creatinine down to 1.8 PHYSICAL EXAM: VITAL SIGNS: Reviewed. GENERAL: Well-developed in no acute distress. HEENT: No sclera icterus. Extraocular movements grossly intact. Moist buccal mucosa. Head is atraumatic, normocephalic. ABDOMEN: Soft. Nondistended. NEUROLOGIC: Alert and oriented. Cranial nerves II through XII grossly intact. ASSESSMENT: 1. Abdominal pain 2. Candidiasis of abdominal fold 3. Extensive peritoneal and pelvic adenopathy 4. Bilateral hydroureteronephrosis and distal ureteral secondary to adenopathy 5. Urinary Bladder with irregular wall thickening 6. UTI 7. Acute renal failure 8. COVID-19 positive PLAN: -No general surgical intervention planned -Continue urology workup -Continue nystatin powder for abdominal skin fold candidiasis Physician Double Bottom Driver note has been reviewed by physician. Signing provider agrees with the documented findings, assessment, and plan of care. Objective - Vital Signs Vital signs: Vital Signs Temp 97.5 F L 06/12/21 09:18 Pulse 77 06/12/21 09:18 Resp 18 06/12/21 09:18 BP 144/77 06/12/21 09:18 Pulse Ox 99 06/12/21 09:18 Intake & Output 06/11/21 06/12/21 06/12/21 18:59 06:59 18:59 Intake Total 118 Output Total 1100 975 Balance -982 -975 Intake: Oral 118 Output: Urine 1100 975 Other: Voiding Method Indwelling Catheter Indwelling Catheter # Voids 2 - Labs CBC & Chem 7: 06/12/21 05:24 06/12/21 05:24 Labs: Abnormal Lab Results - Last 24 Hours (Table) 06/11/21 06/12/21 06/12/21 Range/Units 17:02 05:24 05:24 WBC 15.34 H (4.50-10.00) X 10*3/uL Hgb 11.7 L (12.0-15.0) g/dL MCH 25.0 L (27.0-32.0) pg MCHC 27.9 L (32.0-37.0) g/dL RDW 18.2 H (11.5-14.5) % Immature Gran # 0.21 H (0.00-0.04) X 10*3/uL Neutrophils # 12.54 H (1.80-7.70) X 10*3/uL Carbon Dioxide 15.2 L (20.0-27.5) mmol/L BUN 38.7 H (9.0-27.0) mg/dL Creatinine 1.8 H (0.6-1.5) mg/dL Est GFR (CKD-EPI)AfAm 32.5 L (60.0-200.0) Est GFR (CKD-EPI)NonAf 28.0 L (60.0-200.0) BUN/Creatinine Ratio 21.26 H (12.00-20.00) Ratio POC Glucose (mg/dL) 102 H (75-99) mg/dL Calcium 11.2 H (8.7-10.3) mg/dL AST 90 H (13-35) U/L Alkaline Phosphatase 237 H (41-126) U/L Albumin 3.3 L (3.8-4.9) g/dL Globulin 4.2 H (1.6-3.3) g/dL Albumin/Globulin Ratio 0.79 L (1.60-3.17) g/dL 06/12/21 Range/Units 06:56 WBC (4.50-10.00) X 10*3/uL Hgb (12.0-15.0) g/dL MCH (27.0-32.0) pg MCHC (32.0-37.0) g/dL RDW (11.5-14.5) % Immature Gran # (0.00-0.04) X 10*3/uL Neutrophils # (1.80-7.70) X 10*3/uL Carbon Dioxide (20.0-27.5) mmol/L BUN (9.0-27.0) mg/dL Creatinine (0.6-1.5) mg/dL Est GFR (CKD-EPI)AfAm (60.0-200.0) Est GFR (CKD-EPI)NonAf (60.0-200.0) BUN/Creatinine Ratio (12.00-20.00) Ratio POC Glucose (mg/dL) 100 H (75-99) mg/dL Calcium (8.7-10.3) mg/dL AST (13-35) U/L Alkaline Phosphatase (41-126) U/L Albumin (3.8-4.9) g/dL Globulin (1.6-3.3) g/dL Albumin/Globulin Ratio (1.60-3.17) g/dL Microbiology - Last 24 Hours (Table) 06/10/21 13:10 Urine Culture - Final Urine,Clean Catch Escherichia coli
--- NOTE | 2021-06-12 16:39 | PN ---
PROGRESS NOTE Patient is seen for followup for acute kidney injury. Patient was admitted to the hospital with abdominal pain. Her creatinine was 2.0 on initial admission. She was noted to have hydronephrosis bilaterally on the CT scan. She currently has an indwelling Franco catheter. Patient's creatinine is improved to 1.8. Her calcium was also elevated at 10.6, currently at 11.2. The patient did receive IV fluids, currently maintained on saline at 130 mL an hour. PHYSICAL EXAMINATION: On examination today, blood pressure 144/77, heart rate 77 per minute, she is afebrile. Examination of the of the lower extremities shows trace edema bilaterally. Lungs and heart are not examined as patient is COVID positive. TITLE AGENT exam grossly intact. LAB: Show sodium 137, potassium 4.8, chloride 105, BUN of 38.7, creatinine 1.8. CO2 is 15.2, calcium 11.2. ASSESSMENT: 1. Acute kidney injury, multifactorial, including obstructive uropathy with bilateral hydronephrosis noted on CT scan status post Franco catheter placement. The hypercalcemia is also contributing to the acute kidney injury an. 2. Escherichia coli urinary tract infection. 3. Uterine mass as well as possible underlying bladder malignancy with plans for retrograde pyelogram, possible stent placement by Urology after treatment of the UTI. 4. Hypercalcemia possibly associated with malignancy. Check PTH level, vitamin D levels. Treat with one dose of pamidronate. 5. Metabolic acidosis associated with renal failure. Will switch the IV fluids to IV bicarb. PLAN: Change IV fluids to IV bicarb. Decrease rate of IV fluids. Continue antibiotics. Continue Franco catheter and check PTH levels, vitamin D levels and give one dose of pamidronate. MMODL / IJN: [id number] /
[2021-06-12 16:53] LABS: Glucose,Whole Blood 87 mg/dL (75-99)
[2021-06-12 20:34] LABS: Glucose,Whole Blood 108 mg/dL (75-99)
--- NOTE | 2021-06-12 23:57 | P.PN ---
Subjective Progress Note Date: 06/11/21 This is a pleasant 70 years old female with past medical history of Diabetes Mellitus, Hyperlipidemia, Hypertension, Osteoarthritis, hypothyroidism, history of diverticulosis and diverticulitis. Her PCP is Dr. Tammy Patricia, at [place] She presents because of abdominal pain and urinary symptoms. She has a pain for more than a month, and Smillie in the lower abdomen again across both sides and associated with some little back pain felt like cramping. Was more severe this morning 02/19 and associated with more difficulty with urination which was ongoing for the last 2 weeks getting worse gradually, today it was harder for her to be. Besides each time she P's her lower abdominal pain become more severe. She reports some blood in her urine since last October were her PCP referred to urologist at [place] but has a busy schedule so his been seen on her every months. She saw me twice, second time he ordered a scan of the abdomen with results came back as below. She denies any respiratory symptoms. No dyspnea or chest pain or coughing. No chest pain. No headache or weakness or numbness. Also patient complaining of from constipation because of its painful for her to have a bowel movement No history of smoking, alcohol or illicit drugs Patient was unaware she had been diagnosed with Covid and she has no respiratory symptoms Franco catheter placed in the emergency room. It is yellow urine, no gross hematuria. Pending full urine analysis. Vitas looks stable. She has mild leukocytosis at 15 K Creatinine elevated from baseline 1.7 up to 2.0. Calcium 10.9 which is mildly elevated. Glucose 156 also elevated. Liver enzymes are not significantly elevated covid test came back positive She has CT of the abdomen and pelvis with and without contrast done on 05/31/2021 about 10 days ago showing: Retroperitoneal lymphadenopathy along with paraAortic region. With possible necrotic center transformation. Colonic diverticulosis without diverticulitis. Infraumbilical hernia in the midline abdominal wall with soft tissue density measuring 1.7 x 1.7 cm inside the hernia sac. No hydronephrosis, no renal mass. Urinary bladder wall thickening suspicious for cystitis versus malignant involvement. There is a large uterine fundal hypodense mass measuring 6.8 x 6.4 cm likely fibroid however malignancy not excluded. Chest x-ray no acute process In the emergency room she received 1 dose of Rocephin, Toradol, morphine, normal saline and Tylenol. Nephrology, urology and surgery team were consulted 06/11/2021 Patient is currently sitting in the chair. Complains of lower abdominal pain. Patient has been afebrile. Denied any chest pain or shortness breath. CT of abdomen pelvis showed extensive peritoneal and pelvic adenopathy with interval development of bilateral mild to moderate hydroureteronephrosis likely on the basis of distal ureteral obstruction secondary to adenopathy. Urine culture showed gram-negative bacilli. Patient is being current antibiotics in the form of ceftriaxone. Follow-up final culture report. Patient was also found to have enlarged uterus with fibroids and malignancy cannot be excluded. SURVEYING OR SPATIAL SCIENCE TECHNICIAN service was consulted as well. Laboratory data showed WBC 16.6 hemoglobin 11.6 and platelets 393 BUN 41 and creatinine 1.95 calcium 10.6 AST 49 ALT 19 and alk phos 258 procalcitonin level is 1.30 Coronavirus PCR detected. Current medications reviewed.. Objective - Vital Signs Vital signs: Vital Signs Temp 97.8 F 06/11/21 15:48 Pulse 67 06/11/21 15:48 Resp 18 06/11/21 15:48 BP 127/78 06/11/21 15:48 Pulse Ox 98 06/11/21 15:48 Intake & Output 06/10/21 06/11/21 06/11/21 18:59 06:59 18:59 Output Total 300 500 Balance -300 -500 Weight 113.398 kg Output: Urine 300 500 Uretheral (Franco) 300 - Exam GENERAL: The patient is alert and oriented x3, not in any acute distress. Well developed, well nourished. HEENT: Pupils are round and equally reacting to light. EOMI. No scleral icterus. No conjunctival pallor. Normocephalic, atraumatic. No pharyngeal erythema. No thyromegaly. CARDIOVASCULAR: S1 and S2 present. No murmurs, rubs, or gallops. PULMONARY: Chest is clear to auscultation, no wheezing or crackles. -ABDOMEN: Soft, lower and suprapubic abdominal tenderness, nondistended, nor moactive bowel sounds. No palpable organomegaly. MUSCULOSKELETAL: No joint swelling or deformity. EXTREMITIES: No cyanosis, clubbing, or pedal edema. NEUROLOGICAL: Gross neurological examination did not reveal any focal deficits. SKIN: No rashes. No petechiae - Labs CBC & Chem 7: 06/12/21 05:24 06/12/21 05:24 Labs: Abnormal Lab Results - Last 24 Hours (Table) 06/11/21 06/11/21 06/11/21 Range/Units 04:24 04:24 04:24 WBC 16.66 H (4.50-10.00) X 10*3/uL Hgb 11.6 L (12.0-15.0) g/dL MCH 24.9 L (27.0-32.0) pg MCHC 28.3 L (32.0-37.0) g/dL RDW 17.9 H (11.5-14.5) % Immature Gran # 0.18 H (0.00-0.04) X 10*3/uL Neutrophils # 13.84 H (1.80-7.70) X 10*3/uL Carbon Dioxide 20 L (22-30) mmol/L BUN 41 H (7-17) mg/dL Creatinine 1.95 H (0.52-1.04) mg/dL Glucose 116 H (74-99) mg/dL Calcium 10.6 H (8.4-10.2) mg/dL Magnesium 2.6 H (1.6-2.3) mg/dL AST 49 H (14-36) U/L Alkaline Phosphatase 258 H (38-126) U/L Albumin 3.4 L (3.5-5.0) g/dL Procalcitonin 1.30 H (0.02-0.09) ng/mL Microbiology - Last 24 Hours (Table) 06/10/21 13:10 Urine Culture - Preliminary Urine,Clean Catch Gram Neg Bacilli Assessment and Plan Assessment: Thickened wall urinary suspicious for cystitis, malignancy not excluded. Associated with recent history of hematuria, associated with Worsening Abdominal pain acute kidney injury Acute UTI Hypodense uterine mass suspicious for fibroids. Malignancy not excluded Enlarging Retroperitoneal lymphadenopathy necrotic center transformation. Rule out malignancy versus others Infraumbilical hernia with soft tissue density 1.7 x 1.7 cm suspicious to be lymph nodes. Acute Covid infection with no hypoxia, no pneumonia Suspected chronic kidney disease, unknown stage Diabetes mellitus Hypertension Hyperlipidemia History of osteoarthritis Hypothyroidism Obesity with BMI 44.3 Plan: This is a pleasant 70 years old female presents with lower abdominal pain, cystitis versus tumor with difficulty of urination and acute kidney injury Supervisor Frame Assembly and urologist consulted Follow-up final urine culture Start multiple vitamins Urologist consult Web Weaver consult Labs and medication were reviewed..Monitor lytes and vitals. DVT and GI prophylaxis. DVT prophylaxis: Subcutaneous heparin GI Prophylaxis: Pepcid Prognosis is guarded Time with Patient: Greater than 30
--- NOTE | 2021-06-13 00:01 | P.PN ---
Subjective Progress Note Date: 06/12/21 This is a pleasant 70 years old female with past medical history of Diabetes Mellitus, Hyperlipidemia, Hypertension, Osteoarthritis, hypothyroidism, history of diverticulosis and diverticulitis. Her PCP is Dr. Tammy Patricia, at [place] She presents because of abdominal pain and urinary symptoms. She has a pain for more than a month, and Smillie in the lower abdomen again across both sides and associated with some little back pain felt like cramping. Was more severe this morning 02/19 and associated with more difficulty with urination which was ongoing for the last 2 weeks getting worse gradually, today it was harder for her to be. Besides each time she P's her lower abdominal pain become more severe. She reports some blood in her urine since last October were her PCP referred to urologist at [place] but has a busy schedule so his been seen on her every months. She saw me twice, second time he ordered a scan of the abdomen with results came back as below. She denies any respiratory symptoms. No dyspnea or chest pain or coughing. No chest pain. No headache or weakness or numbness. Also patient complaining of from constipation because of its painful for her to have a bowel movement No history of smoking, alcohol or illicit drugs Patient was unaware she had been diagnosed with Covid and she has no respiratory symptoms Franco catheter placed in the emergency room. It is yellow urine, no gross hematuria. Pending full urine analysis. Vitas looks stable. She has mild leukocytosis at 15 K Creatinine elevated from baseline 1.7 up to 2.0. Calcium 10.9 which is mildly elevated. Glucose 156 also elevated. Liver enzymes are not significantly elevated covid test came back positive She has CT of the abdomen and pelvis with and without contrast done on 05/31/2021 about 10 days ago showing: Retroperitoneal lymphadenopathy along with paraAortic region. With possible necrotic center transformation. Colonic diverticulosis without diverticulitis. Infraumbilical hernia in the midline abdominal wall with soft tissue density measuring 1.7 x 1.7 cm inside the hernia sac. No hydronephrosis, no renal mass. Urinary bladder wall thickening suspicious for cystitis versus malignant involvement. There is a large uterine fundal hypodense mass measuring 6.8 x 6.4 cm likely fibroid however malignancy not excluded. Chest x-ray no acute process In the emergency room she received 1 dose of Rocephin, Toradol, morphine, normal saline and Tylenol. Nephrology, urology and surgery team were consulted 06/11/2021 Patient is currently sitting in the chair. Complains of lower abdominal pain. Patient has been afebrile. Denied any chest pain or shortness breath. CT of abdomen pelvis showed extensive peritoneal and pelvic adenopathy with interval development of bilateral mild to moderate hydroureteronephrosis likely on the basis of distal ureteral obstruction secondary to adenopathy. Urine culture showed gram-negative bacilli. Patient is being current antibiotics in the form of ceftriaxone. Follow-up final culture report. Patient was also found to have enlarged uterus with fibroids and malignancy cannot be excluded. METALSMITH APPRENTICE service was consulted as well. Laboratory data showed WBC 16.6 hemoglobin 11.6 and platelets 393 BUN 41 and creatinine 1.95 calcium 10.6 AST 49 ALT 19 and alk phos 258 procalcitonin level is 1.30 Coronavirus PCR detected. 06/12/2021 Patient is currently sitting in the chair. Awake alert and oriented x3. Patient was started on IV Dilaudid. Pain seems to be improving today. Denies any chest pain or shortness breath. Neurology recommends further work-up including biopsy of the bladder once urinary tract infection clears up. Urine culture showed E. coli and pansensitive. Continue with ceftriaxone. Patient was seen by METALSMITH APPRENTICE service and recommend outpatient follow-up for Pap smear and suspected benign fibroid uterus. Patient has been afebrile. No nausea vomiting. No diarrhea. Laboratory test showed slightly improved WBC count of 15.3 hemoglobin 11.7 and platelets 372 BUN 38 and creatinine 1.8 Patient is being continued on IV hydration. Currently bicarb drip. Patient is also on multivitamins and heparin subcu. No interval dexamethasone patient is saturating well room air. Current medications reviewed.. Objective - Vital Signs Vital signs: Vital Signs Temp 98.5 F 06/12/21 16:59 Pulse 73 06/12/21 16:59 Resp 17 06/12/21 16:59 BP 143/77 06/12/21 16:59 Pulse Ox 98 06/12/21 16:59 Intake & Output 06/12/21 06/12/21 06/13/21 06:59 18:59 06:59 Output Total 975 Balance -975 Output: Urine 975 Other: Voiding Method Indwelling Catheter Indwelling Catheter # Voids 2 - Exam GENERAL: The patient is alert and oriented x3, not in any acute distress. Well developed, well nourished. HEENT: Pupils are round and equally reacting to light. EOMI. No scleral icterus. No conjunctival pallor. Normocephalic, atraumatic. No pharyngeal erythema. No thyromegaly. CARDIOVASCULAR: S1 and S2 present. No murmurs, rubs, or gallops. PULMONARY: Chest is clear to auscultation, no wheezing or crackles. -ABDOMEN: Soft, lower and suprapubic abdominal tenderness, nondistended, norm oactive bowel sounds. No palpable organomegaly. MUSCULOSKELETAL: No joint swelling or deformity. EXTREMITIES: No cyanosis, clubbing, or pedal edema. NEUROLOGICAL: Gross neurological examination did not reveal any focal deficits. SKIN: No rashes. No petechiae - Labs CBC & Chem 7: 06/12/21 05:24 06/12/21 05:24 Labs: Abnormal Lab Results - Last 24 Hours (Table) 06/12/21 06/12/21 06/12/21 Range/Units 05:24 05:24 06:56 WBC 15.34 H (4.50-10.00) X 10*3/uL Hgb 11.7 L (12.0-15.0) g/dL MCH 25.0 L (27.0-32.0) pg MCHC 27.9 L (32.0-37.0) g/dL RDW 18.2 H (11.5-14.5) % Immature Gran # 0.21 H (0.00-0.04) X 10*3/uL Neutrophils # 12.54 H (1.80-7.70) X 10*3/uL Carbon Dioxide 15.2 L (20.0-27.5) mmol/L BUN 38.7 H (9.0-27.0) mg/dL Creatinine 1.8 H (0.6-1.5) mg/dL Est GFR (CKD-EPI)AfAm 32.5 L (60.0-200.0) Est GFR (CKD-EPI)NonAf 28.0 L (60.0-200.0) BUN/Creatinine Ratio 21.26 H (12.00-20.00) Ratio POC Glucose (mg/dL) 100 H (75-99) mg/dL Calcium 11.2 H (8.7-10.3) mg/dL AST 90 H (13-35) U/L Alkaline Phosphatase 237 H (41-126) U/L Albumin 3.3 L (3.8-4.9) g/dL Globulin 4.2 H (1.6-3.3) g/dL Albumin/Globulin Ratio 0.79 L (1.60-3.17) g/dL 06/12/21 Range/Units 20:32 WBC (4.50-10.00) X 10*3/uL Hgb (12.0-15.0) g/dL MCH (27.0-32.0) pg MCHC (32.0-37.0) g/dL RDW (11.5-14.5) % Immature Gran # (0.00-0.04) X 10*3/uL Neutrophils # (1.80-7.70) X 10*3/uL Carbon Dioxide (20.0-27.5) mmol/L BUN (9.0-27.0) mg/dL Creatinine (0.6-1.5) mg/dL Est GFR (CKD-EPI)AfAm (60.0-200.0) Est GFR (CKD-EPI)NonAf (60.0-200.0) BUN/Creatinine Ratio (12.00-20.00) Ratio POC Glucose (mg/dL) 108 H (75-99) mg/dL Calcium (8.7-10.3) mg/dL AST (13-35) U/L Alkaline Phosphatase (41-126) U/L Albumin (3.8-4.9) g/dL Globulin (1.6-3.3) g/dL Albumin/Globulin Ratio (1.60-3.17) g/dL Microbiology - Last 24 Hours (Table) 06/10/21 13:10 Urine Culture - Final Urine,Clean Catch Escherichia coli Assessment and Plan Assessment: Thickened wall urinary suspicious for cystitis, malignancy not excluded. Associated with recent history of hematuria, associated with Worsening Abdominal pain.Neurology recommends outpatient follow-up for cystoscopy and biopsy once UTI clears. acute kidney injury Possible obstructive. Acute UTI with E.coli Hypodense uterine mass suspicious for fibroids. Malignancy not excluded Enlarging Retroperitoneal lymphadenopathy necrotic center transformation. Rule out malignancy versus others Infraumbilical hernia with soft tissue density 1.7 x 1.7 cm suspicious to be lymph nodes. Acute Covid infection with no hypoxia, no pneumonia Suspected chronic kidney disease, unknown stage Diabetes mellitus Hypertension Hyperlipidemia History of osteoarthritis Hypothyroidism Obesity with BMI 44.3 Plan: This is a pleasant 70 years old female presents with lower abdominal pain, cystitis versus tumor with difficulty of urination and acute kidney injury Lithographic Printing Machinist and urologist is following Follow-up final urine culture Start multiple vitamins Urologist consult Wood Carving Lathe Operator consult Labs and medication were reviewed..Monitor lytes and vitals. DVT and GI prophylaxis. DVT prophylaxis: Subcutaneous heparin GI Prophylaxis: Pepcid Prognosis is guarded Time with Patient: Greater than 30
[2021-06-13] MEDS: MORPHINE SULFATE 4 MG/ML SYRINGE IV PRN (01:25)
[2021-06-13] MEDS: HYDROmorphone 0.5 MG/0.5 ML SYRINGE IVP PRN ×7 (04:35→23:45)
[2021-06-13] MEDS: BELLADONNA-OPIUM 16.2-60 MG 1 EACH SUPP RECTAL PRN ×2 (07:28→19:56)
--- NOTE | 2021-06-13 07:53 | P.PN ---
Subjective Progress Note Date: 06/13/21 continues to have severe lower abdominal pain, back and flank pain. No gross hematuria or dysuria. Objective - Vital Signs Vital signs: Vital Signs Temp 98.0 F 06/13/21 05:51 Pulse 83 06/13/21 05:51 Resp 18 06/13/21 05:51 BP 168/77 06/13/21 05:51 Pulse Ox 96 06/13/21 05:51 Intake & Output 06/12/21 06/13/21 06/13/21 18:59 06:59 18:59 Output Total 975 850 Balance -975 -850 Output: Urine 975 850 Other: Voiding Method Indwelling Catheter Indwelling Catheter - Constitutional General appearance: Present: severe distress - Gastrointestinal General gastrointestinal: Present: soft, tenderness (Lower quadrant ). Absent: distended - Labs CBC & Chem 7: 06/12/21 05:24 06/12/21 05:24 Labs: Abnormal Lab Results - Last 24 Hours (Table) 06/12/21 06/12/21 06/12/21 Range/Units 05:24 05:24 18:51 WBC 15.34 H (4.50-10.00) X 10*3/uL Hgb 11.7 L (12.0-15.0) g/dL MCH 25.0 L (27.0-32.0) pg MCHC 27.9 L (32.0-37.0) g/dL RDW 18.2 H (11.5-14.5) % Immature Gran # 0.21 H (0.00-0.04) X 10*3/uL Neutrophils # 12.54 H (1.80-7.70) X 10*3/uL Carbon Dioxide 15.2 L (20.0-27.5) mmol/L BUN 38.7 H (9.0-27.0) mg/dL Creatinine 1.8 H (0.6-1.5) mg/dL Est GFR (CKD-EPI)AfAm 32.5 L (60.0-200.0) Est GFR (CKD-EPI)NonAf 28.0 L (60.0-200.0) BUN/Creatinine Ratio 21.26 H (12.00-20.00) Ratio POC Glucose (mg/dL) (75-99) mg/dL Calcium 11.2 H (8.7-10.3) mg/dL AST 90 H (13-35) U/L Alkaline Phosphatase 237 H (41-126) U/L Albumin 3.3 L (3.8-4.9) g/dL Globulin 4.2 H (1.6-3.3) g/dL Albumin/Globulin Ratio 0.79 L (1.60-3.17) g/dL Vitamin D 25-Hydroxy 9.5 L (30.0-100.0) ng/mL PTH Intact (14.0-72.0) pg/mL 06/12/21 06/12/21 Range/Units 18:51 20:32 WBC (4.50-10.00) X 10*3/uL Hgb (12.0-15.0) g/dL MCH (27.0-32.0) pg MCHC (32.0-37.0) g/dL RDW (11.5-14.5) % Immature Gran # (0.00-0.04) X 10*3/uL Neutrophils # (1.80-7.70) X 10*3/uL Carbon Dioxide (20.0-27.5) mmol/L BUN (9.0-27.0) mg/dL Creatinine (0.6-1.5) mg/dL Est GFR (CKD-EPI)AfAm (60.0-200.0) Est GFR (CKD-EPI)NonAf (60.0-200.0) BUN/Creatinine Ratio (12.00-20.00) Ratio POC Glucose (mg/dL) 108 H (75-99) mg/dL Calcium (8.7-10.3) mg/dL AST (13-35) U/L Alkaline Phosphatase (41-126) U/L Albumin (3.8-4.9) g/dL Globulin (1.6-3.3) g/dL Albumin/Globulin Ratio (1.60-3.17) g/dL Vitamin D 25-Hydroxy (30.0-100.0) ng/mL PTH Intact 10.8 L (14.0-72.0) pg/mL Microbiology - Last 24 Hours (Table) 06/10/21 13:10 Urine Culture - Final Urine,Clean Catch Escherichia coli Assessment and Plan Assessment: 70-year-old female admitted with abdominal pain. CT on presentation showed extensive lymphadenopathy, thickened bladder with bilateral hydronephrosis. discussed with her the finding is highly concerning for muscle invasive metas tatic prostate cancer. Given the thickened bladder bilateral hydronephrosis, gross hematuria and lymphadenopathy. Discussed with her the pain is most likely secondary to her lymphadenopathy, but hydronephrosis could be contributing to her pain. Discussed with her given that she'll be on 4 days of antibiotics now for her UTIs we can proceed with the bladder biopsy. We will also perform bilateral retrograde pyelograms at the same setting, there is evidence hydronephrosis we will place stents. Discussed this will not resolve her lower abdominal pain most likely, but this would allow us to evaluate for tissue diagnosis, to be in better evaluate the etiology of her lymphadenopathy. Discussed risk and benefit of the procedure. -OR for TURBT, bilateral RP, possible stent placement
[2021-06-13 07:59] LABS: Glucose,Whole Blood 140 mg/dL (75-99)
[2021-06-13] MEDS: INSULIN ASPART (NovoLOG) 100 UNIT/ML VIAL SQ SCH ×3 (09:29→16:47)
[2021-06-13] MEDS: CHOLECALCIFEROL 25 MCG (1000 IU) TABLET PO SCH (11:03)
[2021-06-13] MEDS: ASCORBIC ACID 500 MG TAB PO SCH (11:03)
[2021-06-13] MEDS: ZINC SULFATE 220 MG CAP PO SCH (11:04)
[2021-06-13] MEDS: HEPARIN SODIUM,PORCINE/PF 5,000 UNIT/0.5 ML SYRINGE SQ SCH ×2 (11:04→19:56)
[2021-06-13] MEDS: FAMOTIDINE 20 MG/2 ML VIAL IV SCH (11:06)
[2021-06-13] MEDS: NYSTATIN 100,000 UNIT/GM POWD 15 GM TOPICAL SCH ×3 (11:06→20:17)
[2021-06-13 11:44] LABS: Glucose,Whole Blood 105 mg/dL (75-99)
[2021-06-13 12:16] LABS: ALT 34 U/L (4-34); African American GFR (CKD) 35 (>60 ml/min/1.73 sqM); Albumin/Globulin Ratio 0.7; Anion Gap 11 mmol/L; Blood Urea Nitrogen 36 mg/dL (7-17); Calcium 11.7 mg/dL (8.4-10.2); Carbon Dioxide 17 mmol/L (22-30); Chloride 110 mmol/L (98-107); Globulin 4.2 g/dL; Glucose 103 mg/dL (74-99); Non-African American GFR(CKD) 31 (>60 ml/min/1.73 sqM); Sodium 138 mmol/L (137-145); Total Bilirubin 0.8 mg/dL (0.2-1.3)
[2021-06-13] MEDS: DEXTROSE 5% IN WATER 1,000 ML with SODIUM BICARB (1 MEQ/ML) 150 ML IV SCH (12:25)
[2021-06-13 12:34] LABS: AST 73 U/L (14-36); Magnesium 2.4 mg/dL (1.6-2.3); Potassium 5.4 mmol/L (3.5-5.1); Total Protein 7.2 g/dL (6.3-8.2)
[2021-06-13 12:35] LABS: Alkaline Phosphatase 224 U/L (38-126)
--- NOTE | 2021-06-13 13:38 | P.CONS ---
History of Present Illness - Reason for Consult Consult date: 06/13/[address], pelvic adenopathy Requesting physician: Cindy Tapia - Chief Complaint abd and back pain - History of Present Illness Mrs. Sykes presented for back and abdominal pain. A CT scan revealed adenopathy in her pelvic region, bilateral hydronephrosis, as well as, uterus and bladder wall thickening. 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 Urology will plan to obtain tissue biopsy if applicable, and place stents for hydronephrosis if present during procedure. We have been asked to evaluate due to the suspicion of malignancy related abnormalities on exam. Review of Systems All systems: negative Constitutional: Reports as per HPI Past Medical History Past Medical History: Cancer, Diabetes Mellitus, Hyperlipidemia, Hypertension, Osteoarthritis (OA), Thyroid Disorder Additional Past Medical History / Comment(s): diverticulitis, "umb hernia repair and tumor removed-was cancerous" sx took care of it no chemo or radiation History of Any Multi-Drug Resistant Organisms: None Reported Past Surgical History: Hernia Repair Additional Past Surgical History / Comment(s): umb hernia repair and tumor removed-was cancerous, 1 dental implant Past Anesthesia/Blood Transfusion Reactions: No Reported Reaction Additional Past Anesthesia/Blood Transfusion Reaction / Comm: "has never rec eived any blood" Past Psychological History: No Psychological Hx Reported Past Alcohol Use History: None Reported Past Drug Use History: None Reported - Past Family History Mother Family Medical History: Cancer, Diabetes Mellitus, Hyperlipidemia, Hypertension Father Family Medical History: CVA/TIA, Diabetes Mellitus, Hyperlipidemia, Hypertension Medications and Allergies Home Medications Medication Instructions Recorded Confirmed Type Insulin Detemir (Levemir) [Levemir] 50 unit SQ HS 05/13/18 06/10/21 History NIFEdipine [NIFEdipine ER] 90 mg PO DAILY 05/13/18 06/10/21 History Empagliflozin [Jardiance] 10 mg PO DAILY 06/10/21 06/10/21 History INSULIN ASPART (NovoLOG) [NovoLOG 10 unit SQ AC-BID 06/10/21 06/10/21 History (formulary)] Levothyroxine Sodium [Synthroid] 175 mcg PO DAILY 06/10/21 06/10/21 History Rosuvastatin [Crestor] 20 mg PO DAILY 06/10/21 06/10/21 History Triamterene-Hctz 37.5-25Mg 1 cap PO DAILY 06/10/21 06/10/21 History [Dyazide 37.5-25 Capsule] lisinopriL [Zestril] 5 mg PO DAILY 06/10/21 06/10/21 History Allergies Allergy/AdvReac Type Severity Reaction Status Date / Time amoxicillin Allergy Unknown Verified 06/10/21 11:38 Sulfa (Sulfonamide Allergy Rash/Hives Verified 06/10/21 11:38 Antibiotics) Physical Exam Vitals: Vital Signs Temp Pulse Resp BP Pulse Ox 06/13/21 05:51 98.0 F 83 18 168/77 96 06/13/21 02:00 98.0 F 89 16 127/78 98 06/12/21 20:00 97.9 F 99 18 153/80 97 06/12/21 16:59 98.5 F 73 17 143/77 98 06/12/21 13:44 97.4 F L 80 18 151/47 96 06/12/21 09:18 97.5 F L 77 18 144/77 99 Intake and Output 06/12/21 06/13/21 06/13/21 22:59 06:59 14:59 Output Total 850 Balance -850 Output: Urine 850 Other: Voiding Method Indwelling Catheter - Constitutional General appearance: cooperative, no acute distress - EENT Eyes: EOMI ENT: NA/AT, normal oropharynx - Respiratory Respiratory: bilateral: CTA - Cardiovascular Rhythm: regularly irregular leg Peripheral Edema: bilateral: 1+ - Gastrointestinal General gastrointestinal: soft, tenderness - Integumentary Integumentary: pale - Musculoskeletal Musculoskeletal: generalized weakness, strength equal bilaterally - Psychiatric Psychiatric: A&O x's 3, appropriate affect, intact judgment & insight Results CBC & Chem 7: 06/12/21 05:24 06/13/21 10:49 Labs: Abnormal Lab Results - Last 24 Hours (Table) 06/12/21 06/12/21 06/12/21 Range/Units 05:24 05:24 18:51 WBC 15.34 H (4.50-10.00) X 10*3/uL Hgb 11.7 L (12.0-15.0) g/dL MCH 25.0 L (27.0-32.0) pg MCHC 27.9 L (32.0-37.0) g/dL RDW 18.2 H (11.5-14.5) % Immature Gran # 0.21 H (0.00-0.04) X 10*3/uL Neutrophils # 12.54 H (1.80-7.70) X 10*3/uL Carbon Dioxide 15.2 L (20.0-27.5) mmol/L BUN 38.7 H (9.0-27.0) mg/dL Creatinine 1.8 H (0.6-1.5) mg/dL Est GFR (CKD-EPI)AfAm 32.5 L (60.0-200.0) Est GFR (CKD-EPI)NonAf 28.0 L (60.0-200.0) BUN/Creatinine Ratio 21.26 H (12.00-20.00) Ratio POC Glucose (mg/dL) (75-99) mg/dL Calcium 11.2 H (8.7-10.3) mg/dL AST 90 H (13-35) U/L Alkaline Phosphatase 237 H (41-126) U/L Albumin 3.3 L (3.8-4.9) g/dL Globulin 4.2 H (1.6-3.3) g/dL Albumin/Globulin Ratio 0.79 L (1.60-3.17) g/dL Vitamin D 25-Hydroxy 9.5 L (30.0-100.0) ng/mL PTH Intact (14.0-72.0) pg/mL 06/12/21 06/12/21 06/13/21 Range/Units 18:51 20:32 07:57 WBC (4.50-10.00) X 10*3/uL Hgb (12.0-15.0) g/dL MCH (27.0-32.0) pg MCHC (32.0-37.0) g/dL RDW (11.5-14.5) % Immature Gran # (0.00-0.04) X 10*3/uL Neutrophils # (1.80-7.70) X 10*3/uL Carbon Dioxide (20.0-27.5) mmol/L BUN (9.0-27.0) mg/dL Creatinine (0.6-1.5) mg/dL Est GFR (CKD-EPI)AfAm (60.0-200.0) Est GFR (CKD-EPI)NonAf (60.0-200.0) BUN/Creatinine Ratio (12.00-20.00) Ratio POC Glucose (mg/dL) 108 H 140 H (75-99) mg/dL Calcium (8.7-10.3) mg/dL AST (13-35) U/L Alkaline Phosphatase (41-126) U/L Albumin (3.8-4.9) g/dL Globulin (1.6-3.3) g/dL Albumin/Globulin Ratio (1.60-3.17) g/dL Vitamin D 25-Hydroxy (30.0-100.0) ng/mL PTH Intact 10.8 L (14.0-72.0) pg/mL Microbiology - Last 24 Hours (Table) 06/10/21 13:10 Urine Culture - Final Urine,Clean Catch Escherichia coli CT scan - abdomen: report reviewed CT scan - pelvis: report reviewed Assessment and Plan (1) Abdominal lymphadenopathy Current Visit: Yes Status: Acute Code(s): R59.0 - LOCALIZED ENLARGED LYMPH NODES SNOMED Code(s): 275200121 (2) UTI (urinary tract infection) Current Visit: Yes Status: Acute Code(s): N39.0 - URINARY TRACT INFECTION, SITE NOT SPECIFIED SNOMED Code(s): 10498091 (3) Hypercalcemia Narrative/Plan: Status Post Aredia on 06/12 Current Visit: Yes Status: Acute Code(s): E83.52 - HYPERCALCEMIA SNOMED Code(s): 97380558 Plan: Await Urology for diagnosis.After a pathology has resulted further recomm endation can be made. Discussed with Primary team Patient is in a lot of pain when evaluated, added bowel regimen, attempted to add long acting however our system will not allow
[2021-06-13 13:42] LABS: Anisocytosis Slight; HCT 35.6 % (34.0-46.0); Hypochromasia Slight; MCH 28.2 pg (25.0-35.0); MCHC 33.6 g/dL (31.0-37.0); MCV 83.9 fL (80.0-100.0); Mean Platelet Volume 9.6; Platelet Count 281 k/uL (150-450); Poikilocytosis Slight; RBC 4.25 m/uL (3.80-5.40); WBC 15.6 k/uL (3.8-10.6)
[2021-06-13 13:53] LABS: Lymphocytes # (M) 0.78 k/uL (1.0-4.8); Monocytes # (M) 0.31 k/uL (0-1.0); Neutrophils # (M) 14.51 k/uL (1.3-7.7); Neutrophils % (M) 93 %; Nucleated Red Blood Cells 0 /100 WBC (0-0); Total Cells Counted 100
--- NOTE | 2021-06-13 15:12 | P.PN ---
Subjective Progress Note Date: 06/13/21 Principal diagnosis: CHIEF COMPLAINT: Abdominal pain HISTORY OF PRESENT ILLNESS: Patient has had increase in lower abdominal pain and flank pain. She is requiring IV pain medication. Per nursing staff she reports the pain has been near the Franco catheter. She was reevaluated by urology. She is scheduled for urology procedure today. Patient evaluated by oncology they've ordered a whole body bone scan. Afebrile. WBC is 15.6 Hgb 12 platelets 281 potassium 5.4 creatinine 1.7 PHYSICAL EXAM: VITAL SIGNS: Reviewed. GENERAL: Well-developed in no acute distress. HEENT: No sclera icterus. Extraocular movements grossly intact. Moist buccal mucosa. Head is atraumatic, normocephalic. ABDOMEN: Soft. Nondistended. NEUROLOGIC: Alert and oriented. Cranial nerves II through XII grossly intact. ASSESSMENT: 1. Abdominal pain 2. Candidiasis of abdominal fold 3. Extensive peritoneal and pelvic adenopathy 4. Bilateral hydroureteronephrosis and distal ureteral secondary to adenopathy 5. Urinary Bladder with irregular wall thickening 6. UTI 7. Acute renal failure 8. COVID-19 positive PLAN: -No general surgical intervention planned -Scheduled for urology procedure today -Agree with oncology consult -Continue nystatin powder for abdominal skin fold candidiasis Physician Metal Box Maker note has been reviewed by physician. Signing provider agrees with the documented findings, assessment, and plan of care. Objective - Vital Signs Vital signs: Vital Signs Temp 97.9 F 06/13/21 14:00 Pulse 91 06/13/21 14:00 Resp 16 06/13/21 14:00 BP 167/79 06/13/21 14:00 Pulse Ox 100 06/13/21 14:00 Intake & Output 06/12/21 06/13/21 06/13/21 18:59 06:59 18:59 Output Total 975 850 600 Balance -975 -850 -600 Output: Urine 975 850 600 Other: Voiding Method Indwelling Catheter Indwelling Catheter Indwelling Catheter - Labs CBC & Chem 7: 06/13/21 10:49 06/13/21 10:49 Labs: Abnormal Lab Results - Last 24 Hours (Table) 06/12/21 06/12/21 06/12/21 Range/Units 18:51 18:51 20:32 WBC (3.8-10.6) k/uL RDW (11.5-15.5) % Neutrophils # (Manual) (1.3-7.7) k/uL Lymphocytes # (Manual) (1.0-4.8) k/uL Potassium (3.5-5.1) mmol/L Chloride (98-107) mmol/L Carbon Dioxide (22-30) mmol/L BUN (7-17) mg/dL Creatinine (0.52-1.04) mg/dL Glucose (74-99) mg/dL POC Glucose (mg/dL) 108 H (75-99) mg/dL Calcium (8.4-10.2) mg/dL Magnesium (1.6-2.3) mg/dL AST (14-36) U/L Alkaline Phosphatase (38-126) U/L Albumin (3.5-5.0) g/dL Vitamin D 25-Hydroxy 9.5 L (30.0-100.0) ng/mL PTH Intact 10.8 L (14.0-72.0) pg/mL 06/13/21 06/13/21 06/13/21 Range/Units 07:57 10:49 10:49 WBC 15.6 H (3.8-10.6) k/uL RDW 17.0 H (11.5-15.5) % Neutrophils # (Manual) 14.51 H (1.3-7.7) k/uL Lymphocytes # (Manual) 0.78 L (1.0-4.8) k/uL Potassium 5.4 H (3.5-5.1) mmol/L Chloride 110 H (98-107) mmol/L Carbon Dioxide 17 L (22-30) mmol/L BUN 36 H (7-17) mg/dL Creatinine 1.70 H (0.52-1.04) mg/dL Glucose 103 H (74-99) mg/dL POC Glucose (mg/dL) 140 H (75-99) mg/dL Calcium 11.7 H (8.4-10.2) mg/dL Magnesium 2.4 H (1.6-2.3) mg/dL AST 73 H (14-36) U/L Alkaline Phosphatase 224 H (38-126) U/L Albumin 3.0 L (3.5-5.0) g/dL Vitamin D 25-Hydroxy (30.0-100.0) ng/mL PTH Intact (14.0-72.0) pg/mL 06/13/21 Range/Units 11:41 WBC (3.8-10.6) k/uL RDW (11.5-15.5) % Neutrophils # (Manual) (1.3-7.7) k/uL Lymphocytes # (Manual) (1.0-4.8) k/uL Potassium (3.5-5.1) mmol/L Chloride (98-107) mmol/L Carbon Dioxide (22-30) mmol/L BUN (7-17) mg/dL Creatinine (0.52-1.04) mg/dL Glucose (74-99) mg/dL POC Glucose (mg/dL) 105 H (75-99) mg/dL Calcium (8.4-10.2) mg/dL Magnesium (1.6-2.3) mg/dL AST (14-36) U/L Alkaline Phosphatase (38-126) U/L Albumin (3.5-5.0) g/dL Vitamin D 25-Hydroxy (30.0-100.0) ng/mL PTH Intact (14.0-72.0) pg/mL Microbiology - Last 24 Hours (Table) 06/10/21 13:10 Urine Culture - Final Urine,Clean Catch Escherichia coli
--- NOTE | 2021-06-13 15:57 | PN ---
PROGRESS NOTE Patient is seen for followup for acute kidney injury. The patient's serum creatinine has stabilized at about 1.8-1.7 now down from 2.0 on initial admission. She is found to have bilateral hydronephrosis and currently has an indwelling Franco catheter. Plan is for cystoscopy and possible stent placement by Urology. The CT of the abdomen showed extensive lymphadenopathy, thickened bladder with bilateral hydronephrosis with concern for malignancy. PHYSICAL EXAMINATION: On examination today, blood pressure was 150/82, heart rate 68 per minute. Patient is afebrile. Examination of lower extremity shows edema 1+ bilaterally. Abdomen is soft, obese, nontender. The lungs and heart are not examined. LAB: Show sodium 138, potassium 5.4, chloride 110, CO2 is 17, BUN 36, creatinine 1.7. ASSESSMENT: 1. Acute kidney injury, obstructive uropathy currently slightly improved with indwelling Franco catheter. However, they may still be ongoing obstruction and patient is scheduled for cystoscopy and possible stent placement. 2. Metabolic acidosis associated with renal failure, currently maintained on bicarb drip. Will add p.o. sodium bicarb as well. 3. Mild hyperkalemia associated with acute kidney injury, possible underlying obstructive uropathy in spite of the Franco catheter. Monitor for now. 4. Uterine fibroid currently awaiting urological intervention before further intervention from KETTLE SKIMMER standpoint. 5. Covid positive PCR currently with no significant respiratory symptoms, not requiring oxygen. PLAN: Continue with the bicarb drip. Add oral sodium bicarb repeat labs in a.m. Continue with Franco catheter. MMODL / IJN: [id number] /
[2021-06-13 16:40] LABS: Glucose,Whole Blood 119 mg/dL (75-99)
[2021-06-13] MEDS ORDERED: SODIUM CHLORIDE 0.9% 50 ML with ceFAZolin 2,000 MG IV ONE ×2 (17:16)
[2021-06-13] MEDS ORDERED: SODIUM CHLORIDE 0.9% 1,000 ML IV ONE (17:16)
[2021-06-13] MEDS ORDERED: IOHEXOL 350 MG/ML 50 ML in EMPTY BAG 1 BAG IRRIGATION ONE (17:54)
--- NOTE | 2021-06-13 18:22 | P.OP ---
Date of Procedure: 06/13/21 Preoperative Diagnosis: Bladder tumor bilateral hydronephrosis Postoperative Diagnosis: Same Procedure(s) Performed: Cystoscopy, TURBT (large) right retrograde pyelogram, and right stent placement Implants: 6-Japanese by 24 cm stent in the right Anesthesia: MILLIE Surgeon: Jeffrey Mukherjee Estimated Blood Loss (ml): 10 Pathology: other (bladder tumor) Condition: stable Disposition: PACU Indications for Procedure: 70-year-old female admitted with abdominal pain. CT on presentation showed extensive lymphadenopathy, thickened bladder with bilateral hydronephrosis. discussed with her the finding is highly concerning for muscle invasive metastatic prostate cancer. Given the thickened bladder bilateral hydronephrosis, gross hematuria and lymphadenopathy. Discussed with her the pain is most likely secondary to her lymphadenopathy, but hydronephrosis could be contributing to her pain. Discussed with her given that she'll be on 4 days of antibiotics now for her UTIs we can proceed with the bladder biopsy. We will also perform bilateral retrograde pyelograms at the same setting, there is evidence hydronephrosis we will place stents. Discussed this will not resolve her lower abdominal pain most likely, but this would allow us to evaluate for tissue diagnosis, to be in better evaluate the etiology of her lymphadenopathy. Discussed risk and benefit of the procedure. Operative Findings: Complete distortion of the normal anatomy of the trigone bladder neck and posterior bladder wall, findings highly suspicious for muscle invasive bladder cancer, Description of Procedure: Patient was brought to the operating room, sedation was induced. She was prepped and draped in sterile fashion and placed in dorsal lithotomy position. A resectoscope fitted with a 25-Japanese sheath was inserted per urethra, there was complete distortion of the normal anatomy of the trigone, posterior bladder wall, and bladder neck. Using the bipolar resectoscope biopsies of the posterior and the trigone was obtained, total area of resection was 5 cm. during resection I stayed away from the normal anatomical location of the ureteral orifice. Given the highly suspicious finding of muscle invasive cancer on cystoscopy and on CT complete resection was not performed as there was extensive involvement of the trigone posterior bladder wall and bladder neck. Hemostasis was achieved using cautery. At this time the resectoscope was withdrawn and a cystoscope fitted with a 22-Japanese sheath was inserted, cystoscopy was performed and I was able to visualize the right ureteral orifice, which was intubated with an open-ended catheter, retrograde pyelogram was performed showed a severely dilated ureter with moderate hydronephrosis, and a torturous proximal ureter. Next the a sensor wire was advanced through the catheter and the catheter was removed with the wire in place. Next a ureteral stent was passed over the wire, I attempted to visualize the left ureteral orifice, but I was not able to. At this time the cystoscope was withdrawn any 20-Japanese Franco was placed with return of clear urine. The patient was awakened from anesthesia and taken to recovery in stable condition
--- NOTE | 2021-06-13 19:27 | FL ---
EXAMINATION TYPE: FL urography retrograde DATE OF EXAM: 06/13/2021 COMPARISON: NONE HISTORY: Right stent insertion needed TECHNIQUE: Fluoroscopy. FINDINGS: Fluoroscopic guidance was provided during procedure performed by Dr. Mukherjee. A total of 16.4 seconds of fluoroscopic time was utilized during the procedure and 1 spot image was a cquired. For details, please refer to the intraprocedural clinical no IMPRESSION: FL urography retrograde
[2021-06-13 19:34] LABS: Cancer Antigen 125 70.3 U/mL (0.0-30.1)
[2021-06-13] MEDS: SODIUM BICARBONATE TAB 650 MG TAB PO SCH (19:56)
[2021-06-13 20:35] LABS: Glucose,Whole Blood 129 mg/dL (75-99)
[2021-06-14] MEDS: INSULIN ASPART (NovoLOG) 100 UNIT/ML VIAL SQ SCH ×5 (00:34→21:00)
[2021-06-14] MEDS: HYDROmorphone 0.5 MG/0.5 ML SYRINGE IVP PRN ×4 (02:24→20:17)
[2021-06-14 07:10] LABS: Glucose,Whole Blood 129 mg/dL (75-99)
[2021-06-14] MEDS: BELLADONNA-OPIUM 16.2-60 MG 1 EACH SUPP RECTAL PRN ×2 (07:49→17:27)
[2021-06-14] MEDS ORDERED: LORazepam 2 MG/ML INJ IV STA (08:22)
[2021-06-14] MEDS: HEPARIN SODIUM,PORCINE/PF 5,000 UNIT/0.5 ML SYRINGE SQ SCH ×2 (08:31→20:17)
[2021-06-14] MEDS: FAMOTIDINE 20 MG/2 ML VIAL IV SCH (08:32)
[2021-06-14 08:44] LABS: Anisocytosis Slight; Basophils # (A) 0.1 k/uL (0-0.2); Basophils % (A) 0 %; Eosinophils % (A) 0 %; HCT 36.4 % (34.0-46.0); HGB 11.2 gm/dL (11.4-16.0); Hypochromasia Moderate; Lymphocytes # (A) 1.2 k/uL (1.0-4.8); Lymphocytes % (A) 7 %; MCHC 30.9 g/dL (31.0-37.0); MCV 84.1 fL (80.0-100.0); Mean Platelet Volume 7.2; Monocytes # (A) 0.9 k/uL (0-1.0); Monocytes % (A) 5 %; Neutrophils # (A) 15.4 k/uL (1.3-7.7); Neutrophils % (A) 87 %; Platelet Count 384 k/uL (150-450); RBC 4.33 m/uL (3.80-5.40); RDW 16.8 % (11.5-15.5); WBC 17.7 k/uL (3.8-10.6)
[2021-06-14 08:59] LABS: ALT 28 U/L (4-34); AST 49 U/L (14-36); African American GFR (CKD) 32 (>60 ml/min/1.73 sqM); Albumin 2.9 g/dL (3.5-5.0); Albumin/Globulin Ratio 0.7; Alkaline Phosphatase 247 U/L (38-126); Anion Gap 16 mmol/L; Blood Urea Nitrogen 35 mg/dL (7-17); Carbon Dioxide 17 mmol/L (22-30); Chloride 108 mmol/L (98-107); Glucose 122 mg/dL (74-99); Magnesium 2.2 mg/dL (1.6-2.3); Non-African American GFR(CKD) 28 (>60 ml/min/1.73 sqM); Potassium 4.3 mmol/L (3.5-5.1); Sodium 141 mmol/L (137-145); Total Bilirubin 0.5 mg/dL (0.2-1.3); Total Protein 6.9 g/dL (6.3-8.2)
[2021-06-14] MEDS: LORazepam 2 MG/ML INJ IV PRN ×2 (11:30→16:58)
[2021-06-14 11:56] LABS: Glucose,Whole Blood 142 mg/dL (75-99)
--- NOTE | 2021-06-14 12:44 | P.PN ---
Subjective Progress Note Date: 06/14/21 Principal diagnosis: CHIEF COMPLAINT: Abdominal pain HISTORY OF PRESENT ILLNESS: Patient complaining of abdominal pain. Patient is confused. She has been receiving IV pain medications likely contributing to her confusion. She is status post cystoscopy, TURBT right retro-pyelogram and right stent placement for bladder tumor with bilateral hydronephrosis with Dr. Mukherjee. Patient still remains in pain. Oncology is adjusting pain medication and Ativan. She scheduled for a bone scan today. Afebrile. WBC 17.7 creatinine is up to 1.84 CA-125 level elevated PHYSICAL EXAM: VITAL SIGNS: Reviewed. GENERAL: Well-developed in no acute distress. HEENT: No sclera icterus. Extraocular movements grossly intact. Moist buccal mucosa. Head is atraumatic, normocephalic. ABDOMEN: Soft. Nondistended. NEUROLOGIC: Confused ASSESSMENT: 1. Abdominal pain 2. Candidiasis of abdominal fold. Showing improvement 3. Extensive peritoneal and pelvic adenopathy 4. Bilateral hydroureteronephrosis and distal ureteral secondary to adenopathy 5. Bladder tumor with bilateral hydronephrosis status post stent. Biopsy result pending 6. UTI 7. Acute renal failure 8. COVID-19 positive PLAN: -No general surgical intervention planned -Continue oncology workup -Continue nystatin powder for abdominal skin fold candidiasis Physician Draw Off Worker note has been reviewed by physician. Signing provider agrees with the documented findings, assessment, and plan of care. Objective - Vital Signs Vital signs: Vital Signs Temp 98.3 F 06/14/21 08:00 Pulse 78 06/14/21 08:00 Resp 21 06/14/21 08:00 BP 163/73 06/14/21 08:00 Pulse Ox 95 06/14/21 08:00 Intake & Output 06/13/21 06/14/21 06/14/21 18:59 06:59 18:59 Intake Total 651 Output Total 615 675 Balance 36 -675 Intake: IV 651 Output: Urine 600 675 Estimated Blood Loss 15 Other: Voiding Method Indwelling Catheter Indwelling Catheter Indwelling Catheter - Labs CBC & Chem 7: 06/14/21 08:24 06/14/21 08:24 Labs: Abnormal Lab Results - Last 24 Hours (Table) 06/13/21 06/13/21 06/13/21 Range/Units 10:49 10:49 16:38 WBC 15.6 H (3.8-10.6) k/uL Hgb (11.4-16.0) gm/dL MCHC (31.0-37.0) g/dL RDW 17.0 H (11.5-15.5) % Neutrophils # (1.3-7.7) k/uL Neutrophils # (Manual) 14.51 H (1.3-7.7) k/uL Lymphocytes # (Manual) 0.78 L (1.0-4.8) k/uL Chloride (98-107) mmol/L Carbon Dioxide (22-30) mmol/L BUN (7-17) mg/dL Creatinine (0.52-1.04) mg/dL Glucose (74-99) mg/dL POC Glucose (mg/dL) 119 H (75-99) mg/dL Calcium (8.4-10.2) mg/dL AST (14-36) U/L Alkaline Phosphatase (38-126) U/L Albumin (3.5-5.0) g/dL CA 125 Antigen 70.3 H (0.0-30.1) U/mL 06/13/21 06/14/21 06/14/21 Range/Units 20:33 07:08 08:24 WBC 17.7 H (3.8-10.6) k/uL Hgb 11.2 L (11.4-16.0) gm/dL MCHC 30.9 L (31.0-37.0) g/dL RDW 16.8 H (11.5-15.5) % Neutrophils # 15.4 H (1.3-7.7) k/uL Neutrophils # (Manual) (1.3-7.7) k/uL Lymphocytes # (Manual) (1.0-4.8) k/uL Chloride (98-107) mmol/L Carbon Dioxide (22-30) mmol/L BUN (7-17) mg/dL Creatinine (0.52-1.04) mg/dL Glucose (74-99) mg/dL POC Glucose (mg/dL) 129 H 129 H (75-99) mg/dL Calcium (8.4-10.2) mg/dL AST (14-36) U/L Alkaline Phosphatase (38-126) U/L Albumin (3.5-5.0) g/dL CA 125 Antigen (0.0-30.1) U/mL 06/14/21 06/14/21 Range/Units 08:24 11:55 WBC (3.8-10.6) k/uL Hgb (11.4-16.0) gm/dL MCHC (31.0-37.0) g/dL RDW (11.5-15.5) % Neutrophils # (1.3-7.7) k/uL Neutrophils # (Manual) (1.3-7.7) k/uL Lymphocytes # (Manual) (1.0-4.8) k/uL Chloride 108 H (98-107) mmol/L Carbon Dioxide 17 L (22-30) mmol/L BUN 35 H (7-17) mg/dL Creatinine 1.84 H (0.52-1.04) mg/dL Glucose 122 H (74-99) mg/dL POC Glucose (mg/dL) 142 H (75-99) mg/dL Calcium 11.0 H (8.4-10.2) mg/dL AST 49 H (14-36) U/L Alkaline Phosphatase 247 H (38-126) U/L Albumin 2.9 L (3.5-5.0) g/dL CA 125 Antigen (0.0-30.1) U/mL
--- NOTE | 2021-06-14 12:48 | NM ---
EXAMINATION TYPE: NM bone scan whole body DATE OF EXAM: 06/14/2021 COMPARISON: CT scan 06/10/2021 HISTORY: Hypercalcemia Delayed whole-body scanning was performed following the injection of 24.1 mCi Tc 99m MDP. Images acq uired 3 hours post injection. FINDINGS: Abnormal uptake involving the vertebral column likely degenerative. Abnormal uptake involving the knees, feet, and shoulders likely post arthritic. Abnormal uptake involving the hips nonspecific but likely post arthritic. IMPRESSION: 1. Nonspecific uptake involving the vertebral column likely degenerative.
[2021-06-14] MEDS: NYSTATIN 100,000 UNIT/GM POWD 15 GM TOPICAL SCH ×3 (15:07→20:18)
[2021-06-14] MEDS: HYDROcodone/APAP 5-325MG 1 EACH TAB PO PRN (15:11)
[2021-06-14] MEDS: SODIUM BICARBONATE TAB 650 MG TAB PO SCH ×2 (15:12→20:18)
[2021-06-14] MEDS: ASCORBIC ACID 500 MG TAB PO SCH ×2 (15:17→15:22)
[2021-06-14] MEDS: CHOLECALCIFEROL 25 MCG (1000 IU) TABLET PO SCH ×2 (15:17→15:22)
[2021-06-14] MEDS: ZINC SULFATE 220 MG CAP PO SCH ×2 (15:17→15:22)
[2021-06-14 16:02] LABS: Glucose,Whole Blood 120 mg/dL (75-99)
--- NOTE | 2021-06-14 16:26 | P.PN ---
Subjective Underwent transurethral resection of bladder tumor and right sided stent placement , yesterday. Urine is clear, Objective - Vital Signs Vital signs: Vital Signs Temp 98.5 F 06/14/21 14:00 Pulse 82 06/14/21 14:00 Resp 18 06/14/21 14:00 BP 159/79 06/14/21 14:00 Pulse Ox 96 06/14/21 14:00 Intake & Output 06/13/21 06/14/21 06/14/21 18:59 06:59 18:59 Intake Total 651 Output Total 615 675 700 Balance 36 -675 -700 Intake: IV 651 Output: Urine 600 675 700 Estimated Blood Loss 15 Other: Voiding Method Indwelling Catheter Indwelling Catheter Indwelling Catheter - Genitourinary Genitourinary Comment(s): Urine is clear - Labs CBC & Chem 7: 06/14/21 08:24 06/14/21 08:24 Labs: Abnormal Lab Results - Last 24 Hours (Table) 06/13/21 06/13/21 06/13/21 Range/Units 10:49 16:38 20:33 WBC (3.8-10.6) k/uL Hgb (11.4-16.0) gm/dL MCHC (31.0-37.0) g/dL RDW (11.5-15.5) % Neutrophils # (1.3-7.7) k/uL Chloride (98-107) mmol/L Carbon Dioxide (22-30) mmol/L BUN (7-17) mg/dL Creatinine (0.52-1.04) mg/dL Glucose (74-99) mg/dL POC Glucose (mg/dL) 119 H 129 H (75-99) mg/dL Calcium (8.4-10.2) mg/dL AST (14-36) U/L Alkaline Phosphatase (38-126) U/L Albumin (3.5-5.0) g/dL CA 125 Antigen 70.3 H (0.0-30.1) U/mL 06/14/21 06/14/21 06/14/21 Range/Units 07:08 08:24 08:24 WBC 17.7 H (3.8-10.6) k/uL Hgb 11.2 L (11.4-16.0) gm/dL MCHC 30.9 L (31.0-37.0) g/dL RDW 16.8 H (11.5-15.5) % Neutrophils # 15.4 H (1.3-7.7) k/uL Chloride 108 H (98-107) mmol/L Carbon Dioxide 17 L (22-30) mmol/L BUN 35 H (7-17) mg/dL Creatinine 1.84 H (0.52-1.04) mg/dL Glucose 122 H (74-99) mg/dL POC Glucose (mg/dL) 129 H (75-99) mg/dL Calcium 11.0 H (8.4-10.2) mg/dL AST 49 H (14-36) U/L Alkaline Phosphatase 247 H (38-126) U/L Albumin 2.9 L (3.5-5.0) g/dL CA 125 Antigen (0.0-30.1) U/mL 06/14/21 06/14/21 Range/Units 11:55 16:00 WBC (3.8-10.6) k/uL Hgb (11.4-16.0) gm/dL MCHC (31.0-37.0) g/dL RDW (11.5-15.5) % Neutrophils # (1.3-7.7) k/uL Chloride (98-107) mmol/L Carbon Dioxide (22-30) mmol/L BUN (7-17) mg/dL Creatinine (0.52-1.04) mg/dL Glucose (74-99) mg/dL POC Glucose (mg/dL) 142 H 120 H (75-99) mg/dL Calcium (8.4-10.2) mg/dL AST (14-36) U/L Alkaline Phosphatase (38-126) U/L Albumin (3.5-5.0) g/dL CA 125 Antigen (0.0-30.1) U/mL Assessment and Plan Assessment: 70-year-old female admitted with abdominal pain. CT on presentation showed extensive lymphadenopathy, thickened bladder with bilateral hydronephrosis. discussed with her the finding is highly concerning for muscle invasive metastatic bladder cancer. Underwent transurethral resection of bladder tumor, and right-sided stent placement. Urine is clear -Keep Franco in place -Follow up on final pathology
[2021-06-14] MEDS: DEXTROSE 5% IN WATER 1,000 ML with SODIUM BICARB (1 MEQ/ML) 150 ML IV SCH (16:58)
[2021-06-14] MEDS: DEXAMETHASONE SOD PHOSPHATE 4 MG/ML 1 ML VIAL IVP SCH ×2 (17:39→23:24)
--- NOTE | 2021-06-14 18:06 | CT ---
EXAMINATION TYPE: CT chest wo con DATE OF EXAM: 06/14/2021 COMPARISON: None HISTORY: ca staging CT DLP: [address] of the chest was performed with lung and mediastinal window settings submitted. The la ck of contrast limits evaluation of the vascular, mediastinal and parenchymal structures including th e upper abdomen. Examination is limited by patient motion. LUNGS: The lungs are clear and free of infiltrate. Basilar dependent atelectasis. No pulmonary nodule or mass is detected. No pleural effusion. No CT evidence of interstitial lung disease. MEDIASTINUM/NANDA: Thoracic aorta is of normal caliber with limited evaluation given lack of contrast . The heart is not enlarged. No evidence for mediastinal mass. No lymph nodes greater than 1cm. UPPER ABDOMEN: Partially imaged stent right kidney. OTHER: No significant other abnormality. IMPRESSION: 1. Basilar atelectasis. Examination is limited by patient motion. No obvious mass or pulmonary nodul e.
[2021-06-14] MEDS ORDERED: ONDANSETRON 4 MG/2 ML VIAL IVP PRN (20:06)
--- NOTE | 2021-06-14 20:09 | P.PN ---
Subjective Progress Note Date: 06/14/21 Principal diagnosis: mass in bladder Patient is still incredibly uncomfortable. We have started long acting morphine, will spread intervals of her ativan after 24 hours. I spoke to her today and apparently she was seen by Dr. Bucio (urology) who did a bladder scan and at that time no evidence of mass identified, she also recently had outside MRI. At this time will await path to return. Objective - Vital Signs Vital signs: Vital Signs Temp 98.3 F 06/14/21 18:29 Pulse 75 06/14/21 18:29 Resp 18 06/14/21 18:29 BP 151/81 06/14/21 18:29 Pulse Ox 94 L 06/14/21 18:29 Intake & Output 06/14/21 06/14/21 06/15/21 06:59 18:59 06:59 Output Total 675 700 Balance -675 -700 Output: Urine 675 700 Other: Voiding Method Indwelling Catheter Indwelling Catheter - Exam Crying Still in pain Lethargic and moaning when awake Lungs: Diminished Heart RR Abdomen: tender Ext: edema - Labs CBC & Chem 7: 06/14/21 08:24 06/14/21 08:24 Labs: Abnormal Lab Results - Last 24 Hours (Table) 06/13/21 06/13/21 06/14/21 Range/Units 10:49 20:33 07:08 WBC (3.8-10.6) k/uL Hgb (11.4-16.0) gm/dL MCHC (31.0-37.0) g/dL RDW (11.5-15.5) % Neutrophils # (1.3-7.7) k/uL Chloride (98-107) mmol/L Carbon Dioxide (22-30) mmol/L BUN (7-17) mg/dL Creatinine (0.52-1.04) mg/dL Glucose (74-99) mg/dL POC Glucose (mg/dL) 129 H 129 H (75-99) mg/dL Calcium (8.4-10.2) mg/dL AST (14-36) U/L Alkaline Phosphatase (38-126) U/L Albumin (3.5-5.0) g/dL CA 125 Antigen 70.3 H (0.0-30.1) U/mL 06/14/21 06/14/21 06/14/21 Range/Units 08:24 08:24 11:55 WBC 17.7 H (3.8-10.6) k/uL Hgb 11.2 L (11.4-16.0) gm/dL MCHC 30.9 L (31.0-37.0) g/dL RDW 16.8 H (11.5-15.5) % Neutrophils # 15.4 H (1.3-7.7) k/uL Chloride 108 H (98-107) mmol/L Carbon Dioxide 17 L (22-30) mmol/L BUN 35 H (7-17) mg/dL Creatinine 1.84 H (0.52-1.04) mg/dL Glucose 122 H (74-99) mg/dL POC Glucose (mg/dL) 142 H (75-99) mg/dL Calcium 11.0 H (8.4-10.2) mg/dL AST 49 H (14-36) U/L Alkaline Phosphatase 247 H (38-126) U/L Albumin 2.9 L (3.5-5.0) g/dL CA 125 Antigen (0.0-30.1) U/mL 06/14/21 Range/Units 16:00 WBC (3.8-10.6) k/uL Hgb (11.4-16.0) gm/dL MCHC (31.0-37.0) g/dL RDW (11.5-15.5) % Neutrophils # (1.3-7.7) k/uL Chloride (98-107) mmol/L Carbon Dioxide (22-30) mmol/L BUN (7-17) mg/dL Creatinine (0.52-1.04) mg/dL Glucose (74-99) mg/dL POC Glucose (mg/dL) 120 H (75-99) mg/dL Calcium (8.4-10.2) mg/dL AST (14-36) U/L Alkaline Phosphatase (38-126) U/L Albumin (3.5-5.0) g/dL CA 125 Antigen (0.0-30.1) U/mL Assessment and Plan (1) Abdominal lymphadenopathy Current Visit: Yes Status: Acute Code(s): R59.0 - LOCALIZED ENLARGED LYMPH NODES SNOMED Code(s): 802902516 (2) UTI (urinary tract infection) Current Visit: Yes Status: Acute Code(s): N39.0 - URINARY TRACT INFECTION, SITE NOT SPECIFIED SNOMED Code(s): 01842860 (3) Hypercalcemia Narrative/Plan: Status Post Aredia on 06/12 Current Visit: Yes Status: Acute Code(s): E83.52 - HYPERCALCEMIA SNOMED Code(s): 47204575 Plan: Await Urology for diagnosis.After a pathology has resulted further recommendation can be made. Discussed with Primary team Patient is in a lot of pain when evaluated, added bowel regimen, attempted to add long acting however our system would not allow until she reached a week on short acting which including her home pain regimen has. CT chest without and bone scan is negative for metastatic disease Dexamethasone also added for attempt to gain control of malignant related refractory pain Long discussion patient's sammy, nursing primary care Physician Attest: I have completed the full history and physical and agree with above dictation, dictated as as scribe.
[2021-06-14 20:51] LABS: Glucose,Whole Blood 139 mg/dL (75-99)
[2021-06-14] MEDS: MORPHINE SULFATE ER 15 MG TABLET PO SCH (22:31)
[2021-06-15] MEDS: HYDROmorphone 0.5 MG/0.5 ML SYRINGE IVP PRN ×3 (02:03→17:50)
[2021-06-15] MEDS: HYDROcodone/APAP 5-325MG 1 EACH TAB PO PRN ×4 (05:59→22:48)
[2021-06-15 07:14] LABS: Glucose,Whole Blood 153 mg/dL (75-99)
--- NOTE | 2021-06-15 08:16 | P.PN ---
Subjective Underwent transurethral resection of bladder tumor and right sided stent placement ,on 06/15 Urine is clear, her pain and symptoms are unchanged. Objective - Vital Signs Vital signs: Vital Signs Temp 98.3 F 06/15/21 05:54 Pulse 79 06/15/21 05:54 Resp 18 06/15/21 05:54 BP 162/89 06/15/21 05:54 Pulse Ox 94 L 06/15/21 05:54 Intake & Output 06/14/21 06/15/21 06/15/21 18:59 06:59 18:59 Output Total 700 1400 Balance -700 -1400 Output: Urine 700 1400 Other: Voiding Method Indwelling Catheter Indwelling Catheter # Bowel Movements 1 - Constitutional General appearance: Present: severe distress - Labs CBC & Chem 7: 06/14/21 08:24 06/14/21 08:24 Labs: Abnormal Lab Results - Last 24 Hours (Table) 06/12/21 06/14/21 06/14/21 Range/Units 18:51 08:24 08:24 WBC 17.7 H (3.8-10.6) k/uL Hgb 11.2 L (11.4-16.0) gm/dL MCHC 30.9 L (31.0-37.0) g/dL RDW 16.8 H (11.5-15.5) % Neutrophils # 15.4 H (1.3-7.7) k/uL Chloride 108 H (98-107) mmol/L Carbon Dioxide 17 L (22-30) mmol/L BUN 35 H (7-17) mg/dL Creatinine 1.84 H (0.52-1.04) mg/dL Glucose 122 H (74-99) mg/dL POC Glucose (mg/dL) (75-99) mg/dL Calcium 11.0 H (8.4-10.2) mg/dL AST 49 H (14-36) U/L Alkaline Phosphatase 247 H (38-126) U/L Albumin 2.9 L (3.5-5.0) g/dL Vit D 1,25-Dihydroxy 9 L (20 - 79) pg/mL 06/14/21 06/14/21 06/14/21 Range/Units 11:55 16:00 20:47 WBC (3.8-10.6) k/uL Hgb (11.4-16.0) gm/dL MCHC (31.0-37.0) g/dL RDW (11.5-15.5) % Neutrophils # (1.3-7.7) k/uL Chloride (98-107) mmol/L Carbon Dioxide (22-30) mmol/L BUN (7-17) mg/dL Creatinine (0.52-1.04) mg/dL Glucose (74-99) mg/dL POC Glucose (mg/dL) 142 H 120 H 139 H (75-99) mg/dL Calcium (8.4-10.2) mg/dL AST (14-36) U/L Alkaline Phosphatase (38-126) U/L Albumin (3.5-5.0) g/dL Vit D 1,25-Dihydroxy (20 - 79) pg/mL 06/15/21 Range/Units 07:13 WBC (3.8-10.6) k/uL Hgb (11.4-16.0) gm/dL MCHC (31.0-37.0) g/dL RDW (11.5-15.5) % Neutrophils # (1.3-7.7) k/uL Chloride (98-107) mmol/L Carbon Dioxide (22-30) mmol/L BUN (7-17) mg/dL Creatinine (0.52-1.04) mg/dL Glucose (74-99) mg/dL POC Glucose (mg/dL) 153 H (75-99) mg/dL Calcium (8.4-10.2) mg/dL AST (14-36) U/L Alkaline Phosphatase (38-126) U/L Albumin (3.5-5.0) g/dL Vit D 1,25-Dihydroxy (20 - 79) pg/mL Assessment and Plan Assessment: 70-year-old female admitted with abdominal pain. CT on presentation showed extensive lymphadenopathy, thickened bladder with bilateral hydronephrosis. discussed with her the finding is highly concerning for muscle invasive metast atic bladder cancer. Underwent transurethral resection of bladder tumor, and right-sided stent placement. Urine is clear -Keep Franco in place -Continue B&O suppository for bladder spasms -Follow up on final pathology
[2021-06-15 09:47] LABS: Anisocytosis Slight; HCT 38.4 % (34.0-46.0); HGB 11.8 gm/dL (11.4-16.0); Hypochromasia Slight; MCH 25.7 pg (25.0-35.0); MCHC 30.7 g/dL (31.0-37.0); MCV 83.5 fL (80.0-100.0); Mean Platelet Volume 7.1; Platelet Count 401 k/uL (150-450); RDW 16.7 % (11.5-15.5)
[2021-06-15 10:11] LABS: African American GFR (CKD) 30 (>60 ml/min/1.73 sqM); Anion Gap 11 mmol/L; Blood Urea Nitrogen 35 mg/dL (7-17); Calcium 11.4 mg/dL (8.4-10.2); Carbon Dioxide 22 mmol/L (22-30); Chloride 110 mmol/L (98-107); Glucose 146 mg/dL (74-99); Non-African American GFR(CKD) 26 (>60 ml/min/1.73 sqM); Potassium 4.6 mmol/L (3.5-5.1); Sodium 143 mmol/L (137-145)
[2021-06-15] MEDS: LORazepam 2 MG/ML INJ IV PRN (10:15)
[2021-06-15 10:18] LABS: WBC 27.7 k/uL (3.8-10.6)
[2021-06-15] MEDS: CHOLECALCIFEROL 25 MCG (1000 IU) TABLET PO SCH (10:18)
[2021-06-15] MEDS: MORPHINE SULFATE ER 15 MG TABLET PO SCH ×2 (10:18→20:58)
[2021-06-15] MEDS: ASCORBIC ACID 500 MG TAB PO SCH (10:19)
[2021-06-15] MEDS: HEPARIN SODIUM,PORCINE/PF 5,000 UNIT/0.5 ML SYRINGE SQ SCH ×2 (10:19→20:59)
[2021-06-15] MEDS: SODIUM BICARBONATE TAB 650 MG TAB PO SCH ×2 (10:19→20:59)
[2021-06-15] MEDS: ZINC SULFATE 220 MG CAP PO SCH (10:19)
[2021-06-15] MEDS: INSULIN ASPART (NovoLOG) 100 UNIT/ML VIAL SQ SCH ×4 (10:20→20:59)
[2021-06-15] MEDS: NYSTATIN 100,000 UNIT/GM POWD 15 GM TOPICAL SCH ×3 (10:20→21:00)
[2021-06-15] MEDS: DEXAMETHASONE SOD PHOSPHATE 4 MG/ML 1 ML VIAL IVP SCH ×2 (10:47→15:52)
[2021-06-15] MEDS: FAMOTIDINE 20 MG/2 ML VIAL IV SCH (10:47)
[2021-06-15] MEDS: PANTOPRAZOLE 40 MG/10 ML VIAL IVP SCH (10:48)
[2021-06-15] MEDS: DEXTROSE 5% IN WATER 1,000 ML with SODIUM BICARB (1 MEQ/ML) 150 ML IV SCH (11:09)
[2021-06-15 11:41] LABS: Glucose,Whole Blood 136 mg/dL (75-99)
--- NOTE | 2021-06-15 13:51 | PN ---
PROGRESS NOTE Patient is seen for followup for acute kidney injury. Renal function is stable over the past few days, with creatinine staying 1.8 to 1.9 mg/dL. Patient was noted to have bilateral hydronephrosis on the CT scan, for which she has an indwelling Franco catheter. She is also being evaluated by Urology and was taken to the OR on 06/13 and is status post cystoscopy and right ureteral stent placement. There is high suspicion for underlying invasive bladder cancer, given the complete distortion of the anatomy of the bladder on cystoscopy. Biopsies are currently pending. Urine output is maintained and chest CT does not show any evidence of pulmonary nodules or masses. Twenty-four- hour urine output documented at 2.1 L. Blood pressure has been running high. Patient is complaining of significant pain. She is maintained on a bicarb drip at about 50 mL/hour. On examination today, blood pressure 169/83, heart rate 88 per minute. Patient is afebrile. Examination of the lower extremities shows trace edema. 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 Patient has been confused. She is moving all 4 extremities. Lungs and heart are not examined. She is complaining of severe pain in the abdomen. Labs show sodium 143, potassium 4.6, BUN 35, creatinine 1.9, hemoglobin 11.8 g/dL, calcium 11.4. ASSESSMENT: 1. Acute kidney injury, multifactorial, including obstructive uropathy as well as secondary to hypercalcemia. Renal function remains about the same. Patient has an indwelling Franco catheter. A right ureteral stent has also been placed. No nephrotoxic medications on board. Calcium remains elevated. This will be further treated again. 2. Hypercalcemia associated with underlying malignancy. Patient's vitamin D levels were really low and PTH was appropriately low. CA-125 was elevated. She did get one dose of pamidronate. I will repeat that again. 3. Metabolic acidosis associated with renal failure. Will continue with the IV bicarb for now and continue with the oral sodium bicarb as well. CO2 is 20. 4. Urinary tract infection; urine culture growing E coli, currently maintained on antibiotics. 5. Coronavirus PCR positive with no significant infiltrates noted on chest x-ray. PLAN: Continue with the IV fluid with the current bicarb drip at 50. Will increase it to 70 mL/hour. Repeat pamidronate. Avoid any other nephrotoxic agents. Continue with pain control as per primary service. Continue with antibiotics. MMODL / IJN: [id number] /
--- NOTE | 2021-06-15 14:53 | P.PN ---
Subjective Progress Note Date: 06/13/21 Principal diagnosis: Underlying malignancy with lymphadenopathy Obstructive uropathy Acute COVID-19 infection This is a pleasant 70 years old female with past medical history of Diabetes Mellitus, Hyperlipidemia, Hypertension, Osteoarthritis, hypothyroidism, history of diverticulosis and diverticulitis. Her PCP is Dr. Tammy Patricia, at [facility] She presents because of abdominal pain and urinary symptoms. She has a pain for more than a month, and Smillie in the lower abdomen again across both sides and associated with some little back pain felt like cramping. Was more severe this morning 02/19 and associated with more difficulty with urination which was ongoing for the last 2 weeks getting worse gradually, today it was harder for her to be. Besides each time she P's her lower abdominal pain become more severe. She reports some blood in her urine since last October were her PCP referred to urologist at [facility] but has a busy schedule so his been seen on her every mo nths. She saw me twice, second time he ordered a scan of the abdomen with results came back as below. She denies any respiratory symptoms. No dyspnea or chest pain or coughing. No chest pain. No headache or weakness or numbness. Also patient complaining of from constipation because of its painful for her to have a bowel movement No history of smoking, alcohol or illicit drugs Patient was unaware she had been diagnosed with Covid and she has no respiratory symptoms Franco catheter placed in the emergency room. It is yellow urine, no gross hematuria. Pending full urine analysis. Vitas looks stable. She has mild leukocytosis at 15 K Creatinine elevated from baseline 1.7 up to 2.0. Calcium 10.9 which is mildly elevated. Glucose 156 also elevated. Liver enzymes are not significantly e levated covid test came back positive She has CT of the abdomen and pelvis with and without contrast done on 05/31/2021 about 10 days ago showing: Retroperitoneal lymphadenopathy along with paraAortic region. With possible necrotic center transformation. Colonic diverticulosis without diverticulitis. Infraumbilical hernia in the midline abdominal wall with soft tissue density measuring 1.7 x 1.7 cm inside the hernia sac. No hydronephrosis, no renal mass. Urinary bladder wall thickening suspicious for cystitis versus malignant involvement. There is a large uterine fundal hypodense mass measuring 6.8 x 6.4 cm likely fibroid however malignancy not excluded. Chest x-ray no acute process In the emergency room she received 1 dose of Rocephin, Toradol, morphine, normal saline and Tylenol. Nephrology, urology and surgery team were consulted 06/11/2021 Patient is currently sitting in the chair. Complains of lower abdominal pain. Patient has been afebrile. Denied any chest pain or shortness breath. CT of abdomen pelvis showed extensive peritoneal and pelvic adenopathy with interval d evelopment of bilateral mild to moderate hydroureteronephrosis likely on the basis of distal ureteral obstruction secondary to adenopathy. Urine culture showed gram-negative bacilli. Patient is being current antibiotics in the form of ceftriaxone. Follow-up final culture report. Patient was also found to have enlarged uterus with fibroids and malignancy cannot be excluded. CAB DRIVER service was consulted as well. Laboratory data showed WBC 16.6 hemoglobin 11.6 and platelets 393 BUN 41 and creatinine 1.95 calcium 10.6 AST 49 ALT 19 and alk phos 258 procalcitonin level is 1.30 Coronavirus PCR detected. 06/12/2021 Patient is currently sitting in the chair. Awake alert and oriented x3. Patient was started on IV Dilaudid. Pain seems to be improving today. Denies any chest pain or shortness breath. Neurology recommends further work-up including biopsy of the bladder once urinary tract infection clears up. Urine culture showed E. coli and pansensitive. Continue with ceftriaxone. Patient was seen by CAB DRIVER service and recommend outpatient follow-up for Pap smear and suspected benign fibroid uterus. Patient has been afebrile. No nausea vomiting. No diarrhea. Laboratory test showed slightly improved WBC count of 15.3 hemoglobin 11.7 and platelets 372 BUN 38 and creatinine 1.8 Patient is being continued on IV hydration. Currently bicarb drip. Patient is also on multivitamins and heparin subcu. No interval dexamethasone patient is saturating well room air. 12-21 Patient is currently complaining of lower abdominal pain and flank pain which is worsened compared to yesterday. Urology is planning for cystoscopy and possible stent placement. Patient is being converted on Franco catheter. Patient has been afebrile. Continued on antibiotics in the form of ceftriaxone for E. coli urinary tract infection. Oncology evaluated the patient and ordered whole-body bone scan. Laboratory data showed the Holli 15.6 hemoglobin 12 and platelets 281 pressure 5.4 and creatinine 1.7. Gen. surgery urology and oncology is on board. Patient has been afebrile. Awake alert but drowsy and lethargic. No complaints of chest pain or shortness breath. Current medications reviewed.. Objective - Vital Signs Vital signs: Vital Signs Temp 97.9 F 06/13/21 14:00 Pulse 91 06/13/21 14:00 Resp 16 06/13/21 14:00 BP 167/79 06/13/21 14:00 Pulse Ox 100 06/13/21 14:00 Intake & Output 06/12/21 06/13/21 06/13/21 18:59 06:59 18:59 Output Total 975 850 600 Balance -975 -850 -600 Output: Urine 975 850 600 Other: Voiding Method Indwelling Catheter Indwelling Catheter Indwelling Catheter - Exam GENERAL: The patient is alert and oriented x2-3, not in any acute distress. Well developed, well nourished. HEENT: Pupils are round and equally reacting to light. EOMI. No scleral icterus. No conjunctival pallor. Normocephalic, atraumatic. No pharyngeal erythema. No thyromegaly. CARDIOVASCULAR: S1 and S2 present. No murmurs, rubs, or gallops. PULMONARY: Chest is clear to auscultation, no wheezing or crackles. -ABDOMEN: Soft, lower and suprapubic abdominal tenderness, nondistended, normoactive bowel sounds. No palpable organomegaly. MUSCULOSKELETAL: No joint swelling or deformity. EXTREMITIES: No cyanosis, clubbing, or pedal edema. NEUROLOGICAL: Gross neurological examination did not reveal any focal deficits. SKIN: No rashes. No petechiae - Labs CBC & Chem 7: 06/15/21 09:12 06/15/21 09:12 Labs: Abnormal Lab Results - Last 24 Hours (Table) 06/12/21 06/12/21 06/12/21 Range/Units 18:51 18:51 20:32 WBC (3.8-10.6) k/uL RDW (11.5-15.5) % Neutrophils # (Manual) (1.3-7.7) k/uL Lymphocytes # (Manual) (1.0-4.8) k/uL Potassium (3.5-5.1) mmol/L Chloride (98-107) mmol/L Carbon Dioxide (22-30) mmol/L BUN (7-17) mg/dL Creatinine (0.52-1.04) mg/dL Glucose (74-99) mg/dL POC Glucose (mg/dL) 108 H (75-99) mg/dL Calcium (8.4-10.2) mg/dL Magnesium (1.6-2.3) mg/dL AST (14-36) U/L Alkaline Phosphatase (38-126) U/L Albumin (3.5-5.0) g/dL Vitamin D 25-Hydroxy 9.5 L (30.0-100.0) ng/mL PTH Intact 10.8 L (14.0-72.0) pg/mL 06/13/21 06/13/21 06/13/21 Range/Units 07:57 10:49 10:49 WBC 15.6 H (3.8-10.6) k/uL RDW 17.0 H (11.5-15.5) % Neutrophils # (Manual) 14.51 H (1.3-7.7) k/uL Lymphocytes # (Manual) 0.78 L (1.0-4.8) k/uL Potassium 5.4 H (3.5-5.1) mmol/L Chloride 110 H (98-107) mmol/L Carbon Dioxide 17 L (22-30) mmol/L BUN 36 H (7-17) mg/dL Creatinine 1.70 H (0.52-1.04) mg/dL Glucose 103 H (74-99) mg/dL POC Glucose (mg/dL) 140 H (75-99) mg/dL Calcium 11.7 H (8.4-10.2) mg/dL Magnesium 2.4 H (1.6-2.3) mg/dL AST 73 H (14-36) U/L Alkaline Phosphatase 224 H (38-126) U/L Albumin 3.0 L (3.5-5.0) g/dL Vitamin D 25-Hydroxy (30.0-100.0) ng/mL PTH Intact (14.0-72.0) pg/mL 06/13/21 Range/Units 11:41 WBC (3.8-10.6) k/uL RDW (11.5-15.5) % Neutrophils # (Manual) (1.3-7.7) k/uL Lymphocytes # (Manual) (1.0-4.8) k/uL Potassium (3.5-5.1) mmol/L Chloride (98-107) mmol/L Carbon Dioxide (22-30) mmol/L BUN (7-17) mg/dL Creatinine (0.52-1.04) mg/dL Glucose (74-99) mg/dL POC Glucose (mg/dL) 105 H (75-99) mg/dL Calcium (8.4-10.2) mg/dL Magnesium (1.6-2.3) mg/dL AST (14-36) U/L Alkaline Phosphatase (38-126) U/L Albumin (3.5-5.0) g/dL Vitamin D 25-Hydroxy (30.0-100.0) ng/mL PTH Intact (14.0-72.0) pg/mL Microbiology - Last 24 Hours (Table) 06/10/21 13:10 Urine Culture - Final Urine,Clean Catch Escherichia coli Assessment and Plan Assessment: Thickened wall urinary suspicious for cystitis, possible malignancy.. Associated with recent history of hematuria, associated with Worsening Abdominal pain.urology is planning for cystoscopy and biopsy, stent today. acute kidney injury due to obstructive uropathy. Acute UTI with E.coli Hypodense uterine mass suspicious for fibroids. Malignancy not excluded Enlarging Retroperitoneal lymphadenopathy necrotic center transformation. Rule out malignancy versus others Infraumbilical hernia with soft tissue density 1.7 x 1.7 cm suspicious to be lymph nodes. Acute Covid infection with no hypoxia, no pneumonia Suspected chronic kidney disease, unknown stage Diabetes mellitus 2 Hypertension Hyperlipidemia History of osteoarthritis Hypothyroidism Obesity with BMI 44.3 Plan: This is a pleasant 70 years old female presents with lower abdominal pain, cystitis versus tumor with difficulty of urination and acute kidney injury Patient is being continued on IV hydration and antibiotics in the form of ceftriaxone for E. coli urinary tract infection. Patient is being followed by urology and CAB DRIVER has seen the patient. Urology is planning for cystoscopy with stent placement and biopsy today. Labs and medication were reviewed..Monitor lytes and vitals. DVT and GI prophylaxis. DVT prophylaxis: Subcutaneous heparin GI Prophylaxis: Pepcid Prognosis is guarded Time with Patient: Greater than 30
[2021-06-15 14:58] LABS: Lymphocytes # (M) 1.11 k/uL (1.0-4.8); Metamyelocytes # (M) 0.28 k/uL (0); Metamyelocytes % 1 %; Myelocytes # (M) 0.28 k/uL (0); Myelocytes % 1 %; Neutrophils # (M) 26.32 k/uL (1.3-7.7); Neutrophils % (M) 95 %; Nucleated Red Blood Cells 0 /100 WBC (0-0); Total Cells Counted 200
--- NOTE | 2021-06-15 14:58 | P.PN ---
Subjective Progress Note Date: 06/14/21 Principal diagnosis: Underlying malignancy with lymphadenopathy Obstructive uropathy Acute COVID-19 infection This is a pleasant 70 years old female with past medical history of Diabetes Mellitus, Hyperlipidemia, Hypertension, Osteoarthritis, hypothyroidism, history of diverticulosis and diverticulitis. Her PCP is Dr. Tammy Patricia, at [place] She presents because of abdominal pain and urinary symptoms. She has a pain for more than a month, and Smillie in the lower abdomen again across both sides and associated with some little back pain felt like cramping. Was more severe this morning 02/19 and associated with more difficulty with urination which was ongoing for the last 2 weeks getting worse gradually, today it was harder for her to be. Besides each time she P's her lower abdominal pain become more severe. She reports some blood in her urine since last October were her PCP referred to urologist at [place] but has a busy schedule so his been seen on her every mo nths. She saw me twice, second time he ordered a scan of the abdomen with results came back as below. She denies any respiratory symptoms. No dyspnea or chest pain or coughing. No chest pain. No headache or weakness or numbness. Also patient complaining of from constipation because of its painful for her to have a bowel movement No history of smoking, alcohol or illicit drugs Patient was unaware she had been diagnosed with Covid and she has no respiratory symptoms Franco catheter placed in the emergency room. It is yellow urine, no gross hematuria. Pending full urine analysis. Vitas looks stable. She has mild leukocytosis at 15 K Creatinine elevated from baseline 1.7 up to 2.0. Calcium 10.9 which is mildly elevated. Glucose 156 also elevated. Liver enzymes are not significantly e levated covid test came back positive She has CT of the abdomen and pelvis with and without contrast done on 05/31/2021 about 10 days ago showing: Retroperitoneal lymphadenopathy along with paraAortic region. With possible necrotic center transformation. Colonic diverticulosis without diverticulitis. Infraumbilical hernia in the midline abdominal wall with soft tissue density measuring 1.7 x 1.7 cm inside the hernia sac. No hydronephrosis, no renal mass. Urinary bladder wall thickening suspicious for cystitis versus malignant involvement. There is a large uterine fundal hypodense mass measuring 6.8 x 6.4 cm likely fibroid however malignancy not excluded. Chest x-ray no acute process In the emergency room she received 1 dose of Rocephin, Toradol, morphine, normal saline and Tylenol. Nephrology, urology and surgery team were consulted 06/11/2021 Patient is currently sitting in the chair. Complains of lower abdominal pain. Patient has been afebrile. Denied any chest pain or shortness breath. CT of abdomen pelvis showed extensive peritoneal and pelvic adenopathy with interval d evelopment of bilateral mild to moderate hydroureteronephrosis likely on the basis of distal ureteral obstruction secondary to adenopathy. Urine culture showed gram-negative bacilli. Patient is being current antibiotics in the form of ceftriaxone. Follow-up final culture report. Patient was also found to have enlarged uterus with fibroids and malignancy cannot be excluded. [facility] [employer] service was consulted as well. Laboratory data showed WBC 16.6 hemoglobin 11.6 and platelets 393 BUN 41 and creatinine 1.95 calcium 10.6 AST 49 ALT 19 and alk phos 258 procalcitonin level is 1.30 Coronavirus PCR detected. 06/12/2021 Patient is currently sitting in the chair. Awake alert and oriented x3. Patient was started on IV Dilaudid. Pain seems to be improving today. Denies any chest pain or shortness breath. Neurology recommends further work-up including biopsy of the bladder once urinary tract infection clears up. Urine culture showed E. coli and pansensitive. Continue with ceftriaxone. Patient was seen by [facility] [employer] [employer] [facility] and recommend outpatient follow-up for Pap smear and suspected benign fibroid uterus. Patient has been afebrile. No nausea vomiting. No diarrhea. Laboratory test showed slightly improved WBC count of 15.3 hemoglobin 11.7 and platelets 372 BUN 38 and creatinine 1.8 Patient is being continued on IV hydration. Currently bicarb drip. Patient is also on multivitamins and heparin subcu. No interval dexamethasone patient is saturating well room air. 12-21 Patient is currently complaining of lower abdominal pain and flank pain which is worsened compared to yesterday. Urology is planning for cystoscopy and possible stent placement. Patient is being converted on Franco catheter. Patient has been afebrile. Continued on antibiotics in the form of ceftriaxone for E. coli urinary tract infection. Oncology evaluated the patient and ordered whole-body bone scan. Laboratory data showed the Holli 15.6 hemoglobin 12 and platelets 281 pressure 5.4 and creatinine 1.7. Gen. surgery urology and oncology is on board. Patient has been afebrile. Awake alert but drowsy and lethargic. No complaints of chest pain or shortness breath. 06/14/2021 Patient is complaining of severe pain in the abdomen. Patient was started on Dilaudid and continue with [place] when necessary. patient is status post cystoscopy, bladder tumor resection, right stent placement. Patient is having urine output and no hematuria. Oncology has seen the patient bone scan was ordered and chest CT. Bone scan showed nonspecific uptake involving the vertebral column likely degenerative. CT chest showed basilar atelectasis. No obvious mass or pulmonary nodule. Laboratory data showed LV 17.7 hemoglobin 11.2 and platelets 384 BUN 35 and creatinine 1.84 and calcium level is 11.0, AST 40 and alk phos 247 and AST 28 albumin 2.9. Urology, nephrology and oncology is on board. Current medications reviewed.. Objective - Vital Signs Vital signs: Vital Signs Temp 98.3 F 06/14/21 18:29 Pulse 75 06/14/21 18:29 Resp 18 06/14/21 18:29 BP 151/81 06/14/21 18:29 Pulse Ox 94 L 06/14/21 18:29 Intake & Output 06/14/21 06/14/21 06/15/21 06:59 18:59 06:59 Output Total 675 700 Balance -675 -700 Output: Urine 675 700 Other: Voiding Method Indwelling Catheter Indwelling Catheter - Exam GENERAL: The patient is alert drowsy and lethargic, not in any acute distress. Well developed, well nourished. HEENT: Pupils are round and equally reacting to light. EOMI. No scleral icterus. No conjunctival pallor. Normocephalic, atraumatic. No pharyngeal erythema. No thyromegaly. CARDIOVASCULAR: S1 and S2 present. No murmurs, rubs, or gallops. PULMONARY: Chest is clear to auscultation, no wheezing or crackles. -ABDOMEN: Soft, mild suprapubic abdominal tenderness, nondistended, normoactive bowel sounds. No palpable organomegaly. MUSCULOSKELETAL: No joint swelling or deformity. EXTREMITIES: No cyanosis, clubbing, or pedal edema. NEUROLOGICAL: Gross neurological examination did not reveal any focal deficits. SKIN: No rashes. No petechiae - Labs CBC & Chem 7: 06/15/21 09:12 06/15/21 09:12 Labs: Abnormal Lab Results - Last 24 Hours (Table) 06/12/21 06/14/21 06/14/21 Range/Units 18:51 07:08 08:24 WBC 17.7 H (3.8-10.6) k/uL Hgb 11.2 L (11.4-16.0) gm/dL MCHC 30.9 L (31.0-37.0) g/dL RDW 16.8 H (11.5-15.5) % Neutrophils # 15.4 H (1.3-7.7) k/uL Chloride (98-107) mmol/L Carbon Dioxide (22-30) mmol/L BUN (7-17) mg/dL Creatinine (0.52-1.04) mg/dL Glucose (74-99) mg/dL POC Glucose (mg/dL) 129 H (75-99) mg/dL Calcium (8.4-10.2) mg/dL AST (14-36) U/L Alkaline Phosphatase (38-126) U/L Albumin (3.5-5.0) g/dL Vit D 1,25-Dihydroxy 9 L (20 - 79) pg/mL 06/14/21 06/14/21 06/14/21 Range/Units 08:24 11:55 16:00 WBC (3.8-10.6) k/uL Hgb (11.4-16.0) gm/dL MCHC (31.0-37.0) g/dL RDW (11.5-15.5) % Neutrophils # (1.3-7.7) k/uL Chloride 108 H (98-107) mmol/L Carbon Dioxide 17 L (22-30) mmol/L BUN 35 H (7-17) mg/dL Creatinine 1.84 H (0.52-1.04) mg/dL Glucose 122 H (74-99) mg/dL POC Glucose (mg/dL) 142 H 120 H (75-99) mg/dL Calcium 11.0 H (8.4-10.2) mg/dL AST 49 H (14-36) U/L Alkaline Phosphatase 247 H (38-126) U/L Albumin 2.9 L (3.5-5.0) g/dL Vit D 1,25-Dihydroxy (20 - 79) pg/mL 06/14/21 Range/Units 20:47 WBC (3.8-10.6) k/uL Hgb (11.4-16.0) gm/dL MCHC (31.0-37.0) g/dL RDW (11.5-15.5) % Neutrophils # (1.3-7.7) k/uL Chloride (98-107) mmol/L Carbon Dioxide (22-30) mmol/L BUN (7-17) mg/dL Creatinine (0.52-1.04) mg/dL Glucose (74-99) mg/dL POC Glucose (mg/dL) 139 H (75-99) mg/dL Calcium (8.4-10.2) mg/dL AST (14-36) U/L Alkaline Phosphatase (38-126) U/L Albumin (3.5-5.0) g/dL Vit D 1,25-Dihydroxy (20 - 79) pg/mL Assessment and Plan Assessment: Thickened wall urinary suspicious for cystitis, possible malignancy.. Associated with recent history of hematuria, associated with Worsening Abdominal pain.status post cystoscopy and biopsy, stent on 06/13/2021. acute kidney injury due to obstructive uropathy. hypercalcemia due to malignancy. Patient was given a dose of pamidronate. Metabolic acidosis Acute UTI with E.coli Hypodense uterine mass suspicious for fibroids. Malignancy not excluded Enlarging Retroperitoneal lymphadenopathy necrotic center transformation. Rule out malignancy versus others Infraumbilical hernia with soft tissue density 1.7 x 1.7 cm suspicious to be lymph nodes. Acute Covid infection with no hypoxia, no pneumonia Suspected chronic kidney disease, unknown stage Diabetes mellitus 2 Hypertension Hyperlipidemia History of osteoarthritis Hypothyroidism Obesity with BMI 44.3 Plan: This is a pleasant 70 years old female presents with lower abdominal pain, cystitis versus tumor with difficulty of urination and acute kidney injury Patient is being continued on IV hydration and antibiotics in the form of ceftriaxone for E. coli urinary tract infection. Patient was given a dose of pamidronate due to hypercalcemia. Nephrology is following. Continued on Cardizem drip. Patient is being followed by urology and [facility] has seen the patient. Status post cystoscopy with stent placement and biopsy.. Labs and medication were reviewed..Monitor lytes and vitals. DVT and GI prophylaxis. DVT prophylaxis: Subcutaneous heparin GI Prophylaxis: Pepcid Prognosis is guarded Time with Patient: Greater than 30
[2021-06-15] MEDS ORDERED: SODIUM CHLORIDE 0.9% 250 ML with PAMIDRONATE 30 MG IV ONE ×2 (15:30)
[2021-06-15 16:15] LABS: Glucose,Whole Blood 143 mg/dL (75-99)
[2021-06-15 20:35] LABS: Glucose,Whole Blood 176 mg/dL (75-99)
[2021-06-16] MEDS: DEXAMETHASONE SOD PHOSPHATE 4 MG/ML 1 ML VIAL IVP SCH ×3 (00:21→16:52)
[2021-06-16] MEDS: HYDROmorphone 0.5 MG/0.5 ML SYRINGE IVP PRN ×3 (02:31→12:10)
[2021-06-16] MEDS: HYDROcodone/APAP 5-325MG 1 EACH TAB PO PRN (04:44)
[2021-06-16 07:30] LABS: Glucose,Whole Blood 182 mg/dL (75-99)
[2021-06-16] MEDS: FAMOTIDINE 20 MG/2 ML VIAL IV SCH ×2 (08:05→08:24)
[2021-06-16] MEDS: HEPARIN SODIUM,PORCINE/PF 5,000 UNIT/0.5 ML SYRINGE SQ SCH ×2 (08:05→21:03)
[2021-06-16] MEDS: PANTOPRAZOLE 40 MG/10 ML VIAL IVP SCH (08:05)
[2021-06-16] MEDS: ASCORBIC ACID 500 MG TAB PO SCH ×2 (08:06→08:24)
[2021-06-16] MEDS: INSULIN ASPART (NovoLOG) 100 UNIT/ML VIAL SQ SCH ×4 (08:06→22:38)
[2021-06-16] MEDS: ZINC SULFATE 220 MG CAP PO SCH ×2 (08:07→08:24)
[2021-06-16] MEDS: SODIUM BICARBONATE TAB 650 MG TAB PO SCH ×3 (08:07→22:35)
[2021-06-16] MEDS: CHOLECALCIFEROL 25 MCG (1000 IU) TABLET PO SCH ×2 (08:07→08:24)
[2021-06-16] MEDS: MORPHINE SULFATE ER 15 MG TABLET PO SCH (08:12)
[2021-06-16 09:47] LABS: African American GFR (CKD) 32 (>60 ml/min/1.73 sqM); Anion Gap 11 mmol/L; Blood Urea Nitrogen 45 mg/dL (7-17); Calcium 10.9 mg/dL (8.4-10.2); Carbon Dioxide 24 mmol/L (22-30); Chloride 108 mmol/L (98-107); Glucose 164 mg/dL (74-99); Non-African American GFR(CKD) 28 (>60 ml/min/1.73 sqM); Potassium 4.3 mmol/L (3.5-5.1); Sodium 143 mmol/L (137-145)
[2021-06-16 10:29] LABS: Anisocytosis Slight; HCT 39.3 % (34.0-46.0); Hypochromasia Moderate; MCH 25.7 pg (25.0-35.0); MCHC 30.5 g/dL (31.0-37.0); MCV 84.2 fL (80.0-100.0); Platelet Count 436 k/uL (150-450); RBC 4.68 m/uL (3.80-5.40); RDW 16.7 % (11.5-15.5); WBC 32.2 k/uL (3.8-10.6)
[2021-06-16] MEDS: LORazepam 2 MG/ML INJ IV PRN ×2 (10:58→18:57)
[2021-06-16 11:04] LABS: Lymphocytes # (M) 1.29 k/uL (1.0-4.8); Monocytes # (M) 0.97 k/uL (0-1.0); Neutrophils # (M) 30.27 k/uL (1.3-7.7); Neutrophils % (M) 94 %; Nucleated Red Blood Cells 0 /100 WBC (0-0); Total Cells Counted 200
[2021-06-16] MEDS: NYSTATIN 100,000 UNIT/GM POWD 15 GM TOPICAL SCH ×3 (11:04→23:06)
[2021-06-16] MEDS: DEXTROSE 5% IN WATER 1,000 ML with SODIUM BICARB (1 MEQ/ML) 150 ML IV SCH (11:04)
[2021-06-16 11:39] LABS: Glucose,Whole Blood 125 mg/dL (75-99)
[2021-06-16] MEDS: BELLADONNA-OPIUM 16.2-60 MG 1 EACH SUPP RECTAL PRN (12:10)
--- NOTE | 2021-06-16 13:53 | PN ---
PROGRESS NOTE Patient is seen for followup for acute kidney injury. She was noted to have a bladder mass with complete distortion of the bladder anatomy highly suggestive of underlying bladder cancer. The patient also had bilateral hydronephrosis on initial presentation. She is complaining of abdominal pain. Patient has an indwelling Franco catheter. Right ureteral stent was placed by Urology. Her creatinine has been staying at about 1.8-1.9 mg/dL. The patient is also hypercalcemic which is most likely associated with malignancy. PTH is appropriately low and she did receive a dose of pamidronate yesterday. The patient is also Covid PCR positive. Currently maintained on room air with good O2 sats at 95-98 percent. EXAMINATION: Today blood pressure is 152/91, heart rate of 54 per minute. Patient is afebrile. Examination of the lower extremities shows no evidence of edema. The patient is complaining of abdominal pain. There is mild tenderness noted in the lower abdomen. Lungs and heart are not examined. LABS: From today show sodium 143, potassium 4.3, chloride 108, BUN 45, creatinine 1.85, hemoglobin 12.0 g/dL. Calcium is 10.9. ASSESSMENT: 1. Acute kidney injury component of obstructive uropathy and possible underlying ATN and also secondary to hypercalcemia. Renal function stable, creatinine staying 1.8- 1.9. No significant improvement with the Franco catheter. Patient also is status post right ureteral stent placement after cystoscopy. Continue with the Franco catheter for now. Patient is maintained on IV fluids which I will continue. 2. Metabolic acidosis associated with renal failure, improved. We will DC the bicarb drip. Continue with oral sodium bicarb. 3. Hypercalcemia associated with malignancy with appropriately low PTH levels, vitamin D was significantly low. This can be supplemented once calcium level is improved down the road. 4. Urinary tract infection with urine culture growing Escherichia coli, maintained on Rocephin. PLAN: Discontinue bicarb drip. Switch to Ringer lactate. Repeat labs in a.m. Avoid nephrotoxic agents. Continue with the Franco catheter. Awaiting final pathology results. MMODL / IJN: [id number] /
[2021-06-16] MEDS: amLODIPine 5 MG TAB PO SCH (13:54)
[2021-06-16] MEDS: LACTATED RINGERS 1,000 ML IV SCH (13:54)
[2021-06-16] MEDS ORDERED: HYDROmorphone 1 MG/ML 1 ML SYRINGE IVP PRN (14:03)
[2021-06-16] MEDS ORDERED: HYDROmorphone 1 MG/ML 1 ML SYRINGE IVP STA (14:06)
[2021-06-16] MEDS: hydrALAZINE HCL 20 MG/ML 1 ML VIAL IVP PRN (16:08)
[2021-06-16 16:37] LABS: Glucose,Whole Blood 149 mg/dL (75-99)
--- NOTE | 2021-06-16 16:59 | P.PN ---
Subjective Progress Note Date: 06/16/21 Principal diagnosis: mass in bladder Patient seen and examined today. She is still incredibly uncomfortable and when awake screaming out in pain. She is attempting to adjust herself at same time. She has not been able to take the PO per bursing, BP elevated likely related to pain. MSER stopped and Fentanyl patch added instead. Ok one time dose dilaudid. Was asked to update , we spoke if patient had an advance directive as it has been difficult to maintain the patients pain, when medicated she is sedated and there is not a balance. Patients Allie states they have never discussed life saving measures in the past and that it is difficult to quantify the situation being at home and without our pathology back. Therefore at this time he would like to keep all lifesaving measures. We will work on allowing him to have visiting permission. Objective - Vital Signs Vital signs: Vital Signs Temp 97.8 F 06/16/21 15:43 Pulse 61 06/16/21 15:43 Resp 14 06/16/21 15:43 BP 171/110 06/16/21 15:43 Pulse Ox 97 06/16/21 15:43 Intake & Output 06/15/21 06/16/21 06/16/21 18:59 06:59 18:59 Output Total 300 600 Balance -300 -600 Output: Urine 300 600 Other: Voiding Method Indwelling Catheter Indwelling Catheter Indwelling Catheter # Bowel Movements 0 - Exam Crying In distress Still in pain Lethargic and moaning when awake Lungs: Diminished Heart RR Abdomen: tender Ext: edema - Labs CBC & Chem 7: 06/16/21 17:17 06/16/21 17:17 Labs: Abnormal Lab Results - Last 24 Hours (Table) 06/15/21 06/16/21 06/16/21 Range/Units 20:29 07:28 09:07 WBC (3.8-10.6) k/uL MCHC (31.0-37.0) g/dL RDW (11.5-15.5) % Neutrophils # (Manual) (1.3-7.7) k/uL Chloride 108 H (98-107) mmol/L BUN 45 H (7-17) mg/dL Creatinine 1.85 H (0.52-1.04) mg/dL Glucose 164 H (74-99) mg/dL POC Glucose (mg/dL) 176 H 182 H (75-99) mg/dL Calcium 10.9 H (8.4-10.2) mg/dL 06/16/21 06/16/21 06/16/21 Range/Units 09:07 11:38 16:36 WBC 32.2 H (3.8-10.6) k/uL MCHC 30.5 L (31.0-37.0) g/dL RDW 16.7 H (11.5-15.5) % Neutrophils # (Manual) 30.27 H (1.3-7.7) k/uL Chloride (98-107) mmol/L BUN (7-17) mg/dL Creatinine (0.52-1.04) mg/dL Glucose (74-99) mg/dL POC Glucose (mg/dL) 125 H 149 H (75-99) mg/dL Calcium (8.4-10.2) mg/dL Assessment and Plan (1) Abdominal lymphadenopathy Current Visit: Yes Status: Acute Code(s): R59.0 - LOCALIZED ENLARGED LYMPH NODES SNOMED Code(s): 355137677 (2) UTI (urinary tract infection) Current Visit: Yes Status: Acute Code(s): N39.0 - URINARY TRACT INFECTION, SITE NOT SPECIFIED SNOMED Code(s): 91827535 (3) Hypercalcemia Current Visit: Yes Status: Acute Code(s): E83.52 - HYPERCALCEMIA SNOMED Code(s): 35341327 Plan: Await Urology for diagnosis.After a pathology has resulted further recommendation can be made. Discussed with Primary team Patient is in a lot of pain when evaluated, added bowel regimen, attempted to add long acting however our system would not allow until she reached a week on short acting which including her home pain regimen has. CT chest without and bone scan is negative for metastatic disease Dexamethasone also added for attempt to gain control of malignant related refractory pain Long discussion patient's , we discussed wishes related to extensive life saving measures and goals of care and he would like to continue measures until a clear picture of what we are facing Fentanyl patch to replace MS Contin as not able to take PO with her current distress while awake Dilaudid PRN Repeat infectious work-up and abdominal imaging +UTI - Urinarybladder ultrasound for pyelonephritis relating to her increasing pain
--- NOTE | 2021-06-16 17:10 | XR ---
EXAMINATION TYPE: XR abdomen 1V DATE OF EXAM: 06/16/2021 4:08 PM CLINICAL HISTORY: Abdominal pain and distention TECHNIQUE: Supine images of the abdomen and pelvis were obtained COMPARISON: CT abdomen pelvis 06/10/2021. FINDINGS: There is retained oral contrast throughout the colon. The bowel gas pattern is nonspecific. There is a right ureteral stent with proximal coil over the expected right renal pelvis and distal c oil over the expected urinary bladder. No evidence of large pneumoperitoneum. No acute displaced osse ous abnormality. IMPRESSION: 1. Nonspecific bowel gas pattern. Retained oral contrast throughout the colon, likely residual contr ast status post 06/10/2021 CT. 2. Appropriate radiographic position of right ureteral stent.
[2021-06-16 17:45] LABS: Anisocytosis Slight; Basophils # (A) 0.1 k/uL (0-0.2); Basophils % (A) 0 %; Eosinophils % (A) 0 %; HGB 12.5 gm/dL (11.4-16.0); Hypochromasia Slight; Lymphocytes # (A) 1.1 k/uL (1.0-4.8); Lymphocytes % (A) 3 %; MCH 26.1 pg (25.0-35.0); MCHC 31.3 g/dL (31.0-37.0); MCV 83.2 fL (80.0-100.0); Mean Platelet Volume 7.8; Monocytes # (A) 1.2 k/uL (0-1.0); Monocytes % (A) 4 %; Neutrophils # (A) 31.5 k/uL (1.3-7.7); Neutrophils % (A) 92 %; Platelet Count 456 k/uL (150-450); RDW 16.8 % (11.5-15.5); WBC 34.1 k/uL (3.8-10.6)
[2021-06-16 18:05] LABS: ALT 24 U/L (4-34); AST 64 U/L (14-36); African American GFR (CKD) 33 (>60 ml/min/1.73 sqM); Albumin 3.3 g/dL (3.5-5.0); Albumin/Globulin Ratio 0.8; Alkaline Phosphatase 237 U/L (38-126); Anion Gap 12 mmol/L; Blood Urea Nitrogen 47 mg/dL (7-17); Calcium 10.8 mg/dL (8.4-10.2); Carbon Dioxide 28 mmol/L (22-30); Chloride 105 mmol/L (98-107); Globulin 4.3 g/dL; Glucose 153 mg/dL (74-99); Magnesium 2.2 mg/dL (1.6-2.3); Non-African American GFR(CKD) 29 (>60 ml/min/1.73 sqM); Sodium 145 mmol/L (137-145); Total Bilirubin 0.8 mg/dL (0.2-1.3); Total Protein 7.6 g/dL (6.3-8.2); Uric Acid 12.3 mg/dL (3.7-7.4)
[2021-06-16 18:06] LABS: Partial Thromboplastin Time 23.8 sec (22.0-30.0)
[2021-06-16 18:15] LABS: Potassium 4.7 mmol/L (3.5-5.1)
[2021-06-16 19:52] LABS: Appearance,Urine Clear (Clear); Bacteria,Urine Rare /hpf; Bilirubin,Urine Negative (Negative); Blood,Urine Moderate (Negative); Color,Urine Yellow; Glucose,Urine (UA) 2+ (Negative); Ketones,Urine Negative (Negative); Leukocyte Esterase,Urine Moderate (Negative); Mucus,Urine Rare /hpf; Nitrite,Urine Negative (Negative); Protein,Urine 1+ (Negative); RBC,Urine 18 /hpf (0-5); Specific Gravity,Urine 1.015 (1.001-1.035); Urobilinogen,Urine <2.0 mg/dL (<2.0); WBC,Urine 15 /hpf (0-5)
--- NOTE | 2021-06-16 19:55 | US ---
EXAMINATION TYPE: US kidneys/renal and bladder DATE OF EXAM: 06/16/2021 COMPARISON: NONE CLINICAL HISTORY: pyelo?. abdominal pain. history of hydronephrosis and stent EXAM MEASUREMENTS: Right Kidney: 10.9 x 6.2 x 4.7 cm Left Kidney: 10.5 x 4.8 x 4.6 cm technical limitations due to patient's body habitus and large amount of overlying bowel content. Pa tient unable to roll from supine position and in large amount of pain Right Kidney: limited visualization. lower pole obscured by bowel gas. mild hydronephrosis Left Kidney: mild to moderate hydronephrosis Bladder: Franco Catheter IMPRESSION: There is mild bilateral hydronephrosis. No evidence of solid renal mass. Urinary bladder is empty. Hy dronephrosis probably not changed compared to the CT scan of 06/10/2021.
[2021-06-16 20:59] LABS: Glucose,Whole Blood 156 mg/dL (75-99)
[2021-06-16] MEDS: HYDROmorphone 1 MG/ML 1 ML SYRINGE IVP PRN (21:02)
[2021-06-16] MEDS: CEFEPIME 2 GM in SODIUM CHLORIDE 0.9% 100 ML IVPB SCH (21:03)
--- NOTE | 2021-06-16 23:30 | P.PN ---
Subjective Progress Note Date: 06/15/21 Principal diagnosis: Underlying malignancy with lymphadenopathy Obstructive uropathy Acute COVID-19 infection This is a pleasant 70 years old female with past medical history of Diabetes Mellitus, Hyperlipidemia, Hypertension, Osteoarthritis, hypothyroidism, history of diverticulosis and diverticulitis. Her PCP is Dr. Tammy Patricia, at [facility] She presents because of abdominal pain and urinary symptoms. She has a pain for more than a month, and Smillie in the lower abdomen again across both sides and associated with some little back pain felt like cramping. Was more severe this morning 02/19 and associated with more difficulty with urination which was ongoing for the last 2 weeks getting worse gradually, today it was harder for her to be. Besides each time she P's her lower abdominal pain become more severe. She reports some blood in her urine since last October were her PCP referred to urologist at [facility] but has a busy schedule so his been seen on her every mo nths. She saw me twice, second time he ordered a scan of the abdomen with results came back as below. She denies any respiratory symptoms. No dyspnea or chest pain or coughing. No chest pain. No headache or weakness or numbness. Also patient complaining of from constipation because of its painful for her to have a bowel movement No history of smoking, alcohol or illicit drugs Patient was unaware she had been diagnosed with Covid and she has no respiratory symptoms Franco catheter placed in the emergency room. It is yellow urine, no gross hematuria. Pending full urine analysis. Vitas looks stable. She has mild leukocytosis at 15 K Creatinine elevated from baseline 1.7 up to 2.0. Calcium 10.9 which is mildly elevated. Glucose 156 also elevated. Liver enzymes are not significantly e levated covid test came back positive She has CT of the abdomen and pelvis with and without contrast done on 05/31/2021 about 10 days ago showing: Retroperitoneal lymphadenopathy along with paraAortic region. With possible necrotic center transformation. Colonic diverticulosis without diverticulitis. Infraumbilical hernia in the midline abdominal wall with soft tissue density measuring 1.7 x 1.7 cm inside the hernia sac. No hydronephrosis, no renal mass. Urinary bladder wall thickening suspicious for cystitis versus malignant involvement. There is a large uterine fundal hypodense mass measuring 6.8 x 6.4 cm likely fibroid however malignancy not excluded. Chest x-ray no acute process In the emergency room she received 1 dose of Rocephin, Toradol, morphine, normal saline and Tylenol. Nephrology, urology and surgery team were consulted 06/11/2021 Patient is currently sitting in the chair. Complains of lower abdominal pain. Patient has been afebrile. Denied any chest pain or shortness breath. CT of abdomen pelvis showed extensive peritoneal and pelvic adenopathy with interval d evelopment of bilateral mild to moderate hydroureteronephrosis likely on the basis of distal ureteral obstruction secondary to adenopathy. Urine culture showed gram-negative bacilli. Patient is being current antibiotics in the form of ceftriaxone. Follow-up final culture report. Patient was also found to have enlarged uterus with fibroids and malignancy cannot be excluded. QUALIFICATION ENGINEER service was consulted as well. Laboratory data showed WBC 16.6 hemoglobin 11.6 and platelets 393 BUN 41 and creatinine 1.95 calcium 10.6 AST 49 ALT 19 and alk phos 258 procalcitonin level is 1.30 Coronavirus PCR detected. 06/12/2021 Patient is currently sitting in the chair. Awake alert and oriented x3. Patient was started on IV Dilaudid. Pain seems to be improving today. Denies any chest pain or shortness breath. Neurology recommends further work-up including biopsy of the bladder once urinary tract infection clears up. Urine culture showed E. coli and pansensitive. Continue with ceftriaxone. Patient was seen by QUALIFICATION ENGINEER service and recommend outpatient follow-up for Pap smear and suspected benign fibroid uterus. Patient has been afebrile. No nausea vomiting. No diarrhea. Laboratory test showed slightly improved WBC count of 15.3 hemoglobin 11.7 and platelets 372 BUN 38 and creatinine 1.8 Patient is being continued on IV hydration. Currently bicarb drip. Patient is also on multivitamins and heparin subcu. No interval dexamethasone patient is saturating well room air. 12-21 Patient is currently complaining of lower abdominal pain and flank pain which is worsened compared to yesterday. Urology is planning for cystoscopy and possible stent placement. Patient is being converted on Franco catheter. Patient has been afebrile. Continued on antibiotics in the form of ceftriaxone for E. coli urinary tract infection. Oncology evaluated the patient and ordered whole-body bone scan. Laboratory data showed the Holli 15.6 hemoglobin 12 and platelets 281 pressure 5.4 and creatinine 1.7. Gen. surgery urology and oncology is on board. Patient has been afebrile. Awake alert but drowsy and lethargic. No complaints of chest pain or shortness breath. 06/14/2021 Patient is complaining of severe pain in the abdomen. Patient was started on Dilaudid and continue with [place] when necessary. patient is status post cystoscopy, bladder tumor resection, right stent placement. Patient is having urine output and no hematuria. Oncology has seen the patient bone scan was ordered and chest CT. Bone scan showed nonspecific uptake involving the vertebral column likely degenerative. CT chest showed basilar atelectasis. No obvious mass or pulmonary nodule. Laboratory data showed LV 17.7 hemoglobin 11.2 and platelets 384 BUN 35 and creatinine 1.84 and calcium level is 11.0, AST 40 and alk phos 247 and AST 28 albumin 2.9. Urology, nephrology and oncology is on board. 06/15/2021 Patient is lying in the bed. Lethargic and drowsy. Complains of lower abdominal pain. Patient is status post transurethral resection of bladder tumor and right-sided stent placement. Urine output is clear now. Patient has been afebrile. No leukocytosis. Laboratory showed WBC count trending up to 27.7, hemoglobin 11.8 and platelets 401 BUN 35 and creatinine 1.96 and calcium 11.4. Patient is being current on antibiotics in the form of ceftriaxone for your E. coli urinary tract infection. Patient is being continued pain management with Dilaudid 1 mg every 4 hourly as needed. Oncology and nephrology is on board. Current medications reviewed.. Objective - Vital Signs Vital signs: Vital Signs Temp 98.4 F 06/15/21 14:00 Pulse 68 06/15/21 14:00 Resp 18 06/15/21 14:00 BP 171/95 06/15/21 14:00 Pulse Ox 95 06/15/21 14:00 Intake & Output 06/14/21 06/15/21 06/15/21 18:59 06:59 18:59 Output Total 700 1400 Balance -700 -1400 Output: Urine 700 1400 Other: Voiding Method Indwelling Catheter Indwelling Catheter Indwelling Catheter # Bowel Movements 1 - Exam GENERAL: The patient is alert drowsy and lethargic, not in any acute distress. Well developed, well nourished. HEENT: Pupils are round and equally reacting to light. EOMI. No scleral icterus. No conjunctival pallor. Normocephalic, atraumatic. No pharyngeal erythema. No thyromegaly. CARDIOVASCULAR: S1 and S2 present. No murmurs, rubs, or gallops. PULMONARY: Chest is clear to auscultation, no wheezing or crackles. -ABDOMEN: Soft, mild suprapubic abdominal tenderness, nondistended, normoactive bowel sounds. No palpable organomegaly. MUSCULOSKELETAL: No joint swelling or deformity. EXTREMITIES: No cyanosis, clubbing, or pedal edema. NEUROLOGICAL: Gross neurological examination did not reveal any focal deficits. SKIN: No rashes. No petechiae - Labs CBC & Chem 7: 06/16/21 17:17 06/16/21 17:17 Labs: Abnormal Lab Results - Last 24 Hours (Table) 06/12/21 06/14/21 06/14/21 Range/Units 18:51 16:00 20:47 WBC (3.8-10.6) k/uL MCHC (31.0-37.0) g/dL RDW (11.5-15.5) % Neutrophils # (Manual) (1.3-7.7) k/uL Metamyelocytes # (Man) (0) k/uL Myelocytes # (Manual) (0) k/uL Chloride (98-107) mmol/L BUN (7-17) mg/dL Creatinine (0.52-1.04) mg/dL Glucose (74-99) mg/dL POC Glucose (mg/dL) 120 H 139 H (75-99) mg/dL Calcium (8.4-10.2) mg/dL Vit D 1,25-Dihydroxy 9 L (20 - 79) pg/mL 06/15/21 06/15/21 06/15/21 Range/Units 07:13 09:12 09:12 WBC 27.7 H (3.8-10.6) k/uL MCHC 30.7 L (31.0-37.0) g/dL RDW 16.7 H (11.5-15.5) % Neutrophils # (Manual) 26.32 H (1.3-7.7) k/uL Metamyelocytes # (Man) 0.28 H (0) k/uL Myelocytes # (Manual) 0.28 H (0) k/uL Chloride 110 H (98-107) mmol/L BUN 35 H (7-17) mg/dL Creatinine 1.96 H (0.52-1.04) mg/dL Glucose 146 H (74-99) mg/dL POC Glucose (mg/dL) 153 H (75-99) mg/dL Calcium 11.4 H (8.4-10.2) mg/dL Vit D 1,25-Dihydroxy (20 - 79) pg/mL 06/15/21 Range/Units 11:39 WBC (3.8-10.6) k/uL MCHC (31.0-37.0) g/dL RDW (11.5-15.5) % Neutrophils # (Manual) (1.3-7.7) k/uL Metamyelocytes # (Man) (0) k/uL Myelocytes # (Manual) (0) k/uL Chloride (98-107) mmol/L BUN (7-17) mg/dL Creatinine (0.52-1.04) mg/dL Glucose (74-99) mg/dL POC Glucose (mg/dL) 136 H (75-99) mg/dL Calcium (8.4-10.2) mg/dL Vit D 1,25-Dihydroxy (20 - 79) pg/mL Assessment and Plan Assessment: Thickened wall urinary suspicious for cystitis, possible malignancy.. Associated with recent history of hematuria, associated with Worsening Abdominal pain.status post cystoscopy and biopsy, stent on 06/13/2021. acute kidney injury due to obstructive uropathy. hypercalcemia due to malignancy. Patient was given a dose of pamidronate. Metabolic acidosis Acute UTI with E.coli Hypodense uterine mass suspicious for fibroids. Malignancy not excluded Enlarging Retroperitoneal lymphadenopathy necrotic center transformation. Rule out malignancy versus others Infraumbilical hernia with soft tissue density 1.7 x 1.7 cm suspicious to be lymph nodes. Acute Covid infection with no hypoxia, no pneumonia Suspected chronic kidney disease, unknown stage Diabetes mellitus 2 Hypertension Hyperlipidemia History of osteoarthritis Hypothyroidism Obesity with BMI 44.3 Plan: This is a pleasant 70 years old female presents with lower abdominal pain, cystitis versus tumor with difficulty of urination and acute kidney injury Patient is being continued on IV hydration and antibiotics in the form of ceftriaxone for E. coli urinary tract infection. Patient was given a dose of pamidronate due to hypercalcemia. Nephrology is following. Continued on Cardizem drip. Patient is being followed by urology and QUALIFICATION ENGINEER has seen the patient. Status post cystoscopy with stent placement and biopsy.. Labs and medication were reviewed..Monitor lytes and vitals. DVT and GI prophylaxis. DVT prophylaxis: Subcutaneous heparin GI Prophylaxis: Pepcid Prognosis is guarded Time with Patient: Greater than 30
--- NOTE | 2021-06-16 23:33 | P.PN ---
Subjective Progress Note Date: 06/16/21 Principal diagnosis: Underlying malignancy with lymphadenopathy Obstructive uropathy Acute COVID-19 infection This is a pleasant 70 years old female with past medical history of Diabetes Mellitus, Hyperlipidemia, Hypertension, Osteoarthritis, hypothyroidism, history of diverticulosis and diverticulitis. Her PCP is Dr. Tammy Patricia, at [facility] She presents because of abdominal pain and urinary symptoms. She has a pain for more than a month, and [place] in the lower abdomen again across both sides and associated with some little back pain felt like cramping. Was more severe this morning 02/19 and associated with more difficulty with urination which was ongoing for the last 2 weeks getting worse gradually, today it was harder for her to be. Besides each time she P's her lower abdominal pain become more severe. She reports some blood in her urine since last October were her PCP referred to urologist at [facility] but has a busy schedule so his been seen on her every mo nths. She saw me twice, second time he ordered a scan of the abdomen with results came back as below. She denies any respiratory symptoms. No dyspnea or chest pain or coughing. No chest pain. No headache or weakness or numbness. Also patient complaining of from constipation because of its painful for her to have a bowel movement No history of smoking, alcohol or illicit drugs Patient was unaware she had been diagnosed with Covid and she has no respiratory symptoms Franco catheter placed in the emergency room. It is yellow urine, no gross hematuria. Pending full urine analysis. Vitas looks stable. She has mild leukocytosis at 15 K Creatinine elevated from baseline 1.7 up to 2.0. Calcium 10.9 which is mildly elevated. Glucose 156 also elevated. Liver enzymes are not significantly e levated covid test came back positive She has CT of the abdomen and pelvis with and without contrast done on 05/31/2021 about 10 days ago showing: Retroperitoneal lymphadenopathy along with paraAortic region. With possible necrotic center transformation. Colonic diverticulosis without diverticulitis. Infraumbilical hernia in the midline abdominal wall with soft tissue density measuring 1.7 x 1.7 cm inside the hernia sac. No hydronephrosis, no renal mass. Urinary bladder wall thickening suspicious for cystitis versus malignant involvement. There is a large uterine fundal hypodense mass measuring 6.8 x 6.4 cm likely fibroid however malignancy not excluded. Chest x-ray no acute process In the emergency room she received 1 dose of Rocephin, Toradol, morphine, normal saline and Tylenol. Nephrology, urology and surgery team were consulted 06/11/2021 Patient is currently sitting in the chair. Complains of lower abdominal pain. Patient has been afebrile. Denied any chest pain or shortness breath. CT of abdomen pelvis showed extensive peritoneal and pelvic adenopathy with interval d evelopment of bilateral mild to moderate hydroureteronephrosis likely on the basis of distal ureteral obstruction secondary to adenopathy. Urine culture showed gram-negative bacilli. Patient is being current antibiotics in the form of ceftriaxone. Follow-up final culture report. Patient was also found to have enlarged uterus with fibroids and malignancy cannot be excluded. DOG OBEDIENCE INSTRUCTOR service was consulted as well. Laboratory data showed WBC 16.6 hemoglobin 11.6 and platelets 393 BUN 41 and creatinine 1.95 calcium 10.6 AST 49 ALT 19 and alk phos 258 procalcitonin level is 1.30 Coronavirus PCR detected. 06/12/2021 Patient is currently sitting in the chair. Awake alert and oriented x3. Patient was started on IV Dilaudid. Pain seems to be improving today. Denies any chest pain or shortness breath. Neurology recommends further work-up including biopsy of the bladder once urinary tract infection clears up. Urine culture showed E. coli and pansensitive. Continue with ceftriaxone. Patient was seen by DOG OBEDIENCE INSTRUCTOR service and recommend outpatient follow-up for Pap smear and suspected benign fibroid uterus. Patient has been afebrile. No nausea vomiting. No diarrhea. Laboratory test showed slightly improved WBC count of 15.3 hemoglobin 11.7 and platelets 372 BUN 38 and creatinine 1.8 Patient is being continued on IV hydration. Currently bicarb drip. Patient is also on multivitamins and heparin subcu. No interval dexamethasone patient is saturating well room air. 12-21 Patient is currently complaining of lower abdominal pain and flank pain which is worsened compared to yesterday. Urology is planning for cystoscopy and possible stent placement. Patient is being converted on Franco catheter. Patient has been afebrile. Continued on antibiotics in the form of ceftriaxone for E. coli urinary tract infection. Oncology evaluated the patient and ordered whole-body bone scan. Laboratory data showed the Holli 15.6 hemoglobin 12 and platelets 281 pressure 5.4 and creatinine 1.7. Gen. surgery urology and oncology is on board. Patient has been afebrile. Awake alert but drowsy and lethargic. No complaints of chest pain or shortness breath. 06/14/2021 Patient is complaining of severe pain in the abdomen. Patient was started on Dilaudid and continue with [place] when necessary. patient is status post cystoscopy, bladder tumor resection, right stent placement. Patient is having urine output and no hematuria. Oncology has seen the patient bone scan was ordered and chest CT. Bone scan showed nonspecific uptake involving the vertebral column likely degenerative. CT chest showed basilar atelectasis. No obvious mass or pulmonary nodule. Laboratory data showed LV 17.7 hemoglobin 11.2 and platelets 384 BUN 35 and creatinine 1.84 and calcium level is 11.0, AST 40 and alk phos 247 and AST 28 albumin 2.9. Urology, nephrology and oncology is on board. 06/15/2021 Patient is lying in the bed. Lethargic and drowsy. Complains of lower abdominal pain. Patient is status post transurethral resection of bladder tumor and right-sided stent placement. Urine output is clear now. Patient has been afebrile. No leukocytosis. Laboratory showed WBC count trending up to 27.7, hemoglobin 11.8 and platelets 401 BUN 35 and creatinine 1.96 and calcium 11.4. Patient is being current on antibiotics in the form of ceftriaxone for your E. coli urinary tract infection. Patient is being continued pain management with Dilaudid 1 mg every 4 hourly as needed. Oncology and nephrology is on board. 06/16/2021 Patient is lethargic and drowsy. Barely arousable with verbal stimuli. Still complains of pain and is continued on Dilaudid 1 mg every 4 hourly. Patient does have good urine output. No blood noted. Patient is being current on ceftriaxone for urinary tract infection. Patient has been having worsening leukocytosis. ID service will be consulted. Abdominal x-ray was ordered showed nonspecific bowel gas pattern. Appropriate radiographic position of right ureteral stent. Ultrasound of the bladder showed no change in hydronephrosis compared to prior. Laboratory showed WBC 32.2 hemoglobin 12.0 and platelets 436 BUN 45 and creatinine 1.85 and calcium level improved to 10.9 Nephrology, oncology and urology is on board. Current medications reviewed.. Objective - Vital Signs Vital signs: Vital Signs Temp 97.8 F 06/16/21 15:43 Pulse 68 06/16/21 17:49 Resp 16 06/16/21 17:49 BP 168/85 06/16/21 17:49 Pulse Ox 98 06/16/21 17:49 Intake & Output 06/16/21 06/16/21 06/17/21 06:59 18:59 06:59 Output Total 600 520 Balance -600 -520 Output: Urine 600 520 Other: Voiding Method Indwelling Catheter Indwelling Catheter # Bowel Movements 0 - Exam GENERAL: The patient is alert drowsy and lethargic, not in any acute distress. Well developed, well nourished. HEENT: Pupils are round and equally reacting to light. EOMI. No scleral icterus. No conjunctival pallor. Normocephalic, atraumatic. No pharyngeal erythema. No thyromegaly. CARDIOVASCULAR: S1 and S2 present. No murmurs, rubs, or gallops. PULMONARY: Chest is clear to auscultation, no wheezing or crackles. -ABDOMEN: Soft, mild suprapubic abdominal tenderness, nondistended, normoactive bowel sounds. No palpable organomegaly. MUSCULOSKELETAL: No joint swelling or deformity. EXTREMITIES: No cyanosis, clubbing, or pedal edema. NEUROLOGICAL: Gross neurological examination did not reveal any focal deficits. SKIN: No rashes. No petechiae - Labs CBC & Chem 7: 06/16/21 17:17 06/16/21 17:17 Labs: Abnormal Lab Results - Last 24 Hours (Table) 06/16/21 06/16/21 06/16/21 Range/Units 07:28 09:07 09:07 WBC 32.2 H (3.8-10.6) k/uL MCHC 30.5 L (31.0-37.0) g/dL RDW 16.7 H (11.5-15.5) % Plt Count (150-450) k/uL Neutrophils # (1.3-7.7) k/uL Neutrophils # (Manual) 30.27 H (1.3-7.7) k/uL Monocytes # (0-1.0) k/uL Chloride 108 H (98-107) mmol/L BUN 45 H (7-17) mg/dL Creatinine 1.85 H (0.52-1.04) mg/dL Glucose 164 H (74-99) mg/dL POC Glucose (mg/dL) 182 H (75-99) mg/dL Uric Acid (3.7-7.4) mg/dL Calcium 10.9 H (8.4-10.2) mg/dL AST (14-36) U/L Alkaline Phosphatase (38-126) U/L Albumin (3.5-5.0) g/dL TSH (0.465-4.680) mIU/L Urine Protein (Negative) Urine Glucose (UA) (Negative) Urine Blood (Negative) Ur Leukocyte Esterase (Negative) Urine RBC (0-5) /hpf Urine WBC (0-5) /hpf Urine Bacteria (None) /hpf Urine Mucus (None) /hpf 06/16/21 06/16/21 06/16/21 Range/Units 11:38 16:36 17:17 WBC 34.1 H (3.8-10.6) k/uL MCHC (31.0-37.0) g/dL RDW 16.8 H (11.5-15.5) % Plt Count 456 H (150-450) k/uL Neutrophils # 31.5 H (1.3-7.7) k/uL Neutrophils # (Manual) (1.3-7.7) k/uL Monocytes # 1.2 H (0-1.0) k/uL Chloride (98-107) mmol/L BUN (7-17) mg/dL Creatinine (0.52-1.04) mg/dL Glucose (74-99) mg/dL POC Glucose (mg/dL) 125 H 149 H (75-99) mg/dL Uric Acid (3.7-7.4) mg/dL Calcium (8.4-10.2) mg/dL AST (14-36) U/L Alkaline Phosphatase (38-126) U/L Albumin (3.5-5.0) g/dL TSH (0.465-4.680) mIU/L Urine Protein (Negative) Urine Glucose (UA) (Negative) Urine Blood (Negative) Ur Leukocyte Esterase (Negative) Urine RBC (0-5) /hpf Urine WBC (0-5) /hpf Urine Bacteria (None) /hpf Urine Mucus (None) /hpf 06/16/21 06/16/21 06/16/21 Range/Units 17:17 19:33 20:55 WBC (3.8-10.6) k/uL MCHC (31.0-37.0) g/dL RDW (11.5-15.5) % Plt Count (150-450) k/uL Neutrophils # (1.3-7.7) k/uL Neutrophils # (Manual) (1.3-7.7) k/uL Monocytes # (0-1.0) k/uL Chloride (98-107) mmol/L BUN 47 H (7-17) mg/dL Creatinine 1.80 H (0.52-1.04) mg/dL Glucose 153 H (74-99) mg/dL POC Glucose (mg/dL) 156 H (75-99) mg/dL Uric Acid 12.3 H (3.7-7.4) mg/dL Calcium 10.8 H (8.4-10.2) mg/dL AST 64 H (14-36) U/L Alkaline Phosphatase 237 H (38-126) U/L Albumin 3.3 L (3.5-5.0) g/dL TSH 5.650 H (0.465-4.680) mIU/L Urine Protein 1+ H (Negative) Urine Glucose (UA) 2+ H (Negative) Urine Blood Moderate H (Negative) Ur Leukocyte Esterase Moderate H (Negative) Urine RBC 18 H (0-5) /hpf Urine WBC 15 H (0-5) /hpf Urine Bacteria Rare H (None) /hpf Urine Mucus Rare H (None) /hpf Assessment and Plan Assessment: Thickened wall urinary suspicious for cystitis, possible malignancy.. Associated with recent history of hematuria, associated with Worsening Abdominal pain. status post cystoscopy and bladder tumor resection, biopsy, stent on 06/13/2021. acute kidney injury due to obstructive uropathy. hypercalcemia due to malignancy. Patient was given a dose of pamidronate. Metabolic acidosis Acute UTI with E.coli Worsening leukocytosis. Hypodense uterine mass suspicious for fibroids. Malignancy not excluded Enlarging Retroperitoneal lymphadenopathy necrotic center transformation. Rule out malignancy versus others Infraumbilical hernia with soft tissue density 1.7 x 1.7 cm suspicious to be lymph nodes. Acute Covid infection with no hypoxia, no pneumonia Suspected chronic kidney disease, unknown stage Diabetes mellitus 2 Hypertension Hyperlipidemia History of osteoarthritis Hypothyroidism Obesity with BMI 44.3 Plan: This is a pleasant 70 years old female presents with lower abdominal pain, cystitis versus tumor with difficulty of urination and acute kidney injury Patient is being continued on IV hydration and antibiotics in the form of ceftriaxone for E. coli urinary tract infection. Patient was given a dose of pamidronate due to hypercalcemia. Nephrology is following. Continued on Cardizem drip. Patient is being followed by urology and DOG OBEDIENCE INSTRUCTOR has seen the patient. Status post cystoscopy with stent placement and biopsy.. Labs and medication were reviewed..Monitor lytes and vitals. DVT and GI prophylaxis. DVT prophylaxis: Subcutaneous heparin GI Prophylaxis: Pepcid Prognosis is guarded Time with Patient: Greater than 30
[2021-06-17] MEDS: LORazepam 2 MG/ML INJ IV PRN ×4 (00:24→21:12)
[2021-06-17] MEDS: HYDROmorphone 1 MG/ML 1 ML SYRINGE IVP PRN ×7 (01:46→22:20)
[2021-06-17 02:37] LABS: Prothrombin Time 10.8 sec (9.0-12.0)
[2021-06-17 07:07] LABS: Glucose,Whole Blood 144 mg/dL (75-99)
--- NOTE | 2021-06-17 08:31 | P.CONS ---
History of Present Illness - Reason for Consult Consult date: 06/16/21 leukocytosis Requesting physician: Keith Sepulveda - Chief Complaint lower abd pain x 1 month - History of Present Illness History of present illness : Patient is 70-year-old female admitted to hospital about a week ago for evaluation of lower abdominal pressure and difficult urination in this patient symptom has been going on for 1 month has been evaluated outpatient setting by a urologist from [facility] and the plan will be to have a CT without any clear results patient be complaining of difficulty urination over the past week before presentation the hospital and only during dribbles patient did have a pain more of a sharp in nature intensity almost out of 10 and no radiation some nausea but no vomiting no diarrhea no chest pain shortness of breath or cough on presentation to the hospital the patient was afebrile and no fever has been recorded subsequently patient did have a white count of 15,000 which has slowly tracking up and is up to 32,000 today that has prompted this infectious disease consultation patient did have elevated BUN and creatinine however the creatinine is trending down patient did have a positive UA with large to slight esterase more than 1-2 WBC culture has been positive for E. coli which is sensitive pathogen patient also have a positive Covid test but no significant respiratory symptoms patient did have a chest x-ray was negative for acute pulmonary process CT abdominal pelvis was done on admission with evidence of extensive peritoneal and pelvic adenopathy with bilateral mild to moderate hydronephrosis bladder wall is thickened and irregular patient did have a cystoscopy with the transurethral resection of the bladder tumor and right ureteral stent placement bone scan has been negative for any bony mets CT of the chest bilateral atelectasis no obvious pulmonary mass or nodule patient remains to be moaning in pain and did not provide any history most information has been obtained from review the chart and talking to the at the bedside Review of system: Positive point has been mentioned in HPI complete review could not be obtained because of underlying mental status Past medical history : Reviewed, documented below Past surgical history : Reviewed, documented below Social history: Reviewed, documented below Medications: Reviewed, as documented below EXAMINATION: Vital sigans= Reviewed and documented below GENERAL DESCRIPTION: Elderly female lying in bed, no distress. No tachypnea or accessory muscle of respiration use. HEENT: Shows Pallor , no scleral icterus. Oral mucous membrane is dry. NECK: Trachea central, no thyromegaly. LUNGS: Unlabored breathing. Decreased breath sound at the base. No wheeze or crackle. HEART: S1, S2, regular rate and rhythm. ABDOMEN: Soft, lower abdominal tenderness , no guarding or rigidity EXTREMITIES: No edema of feet. SKIN: No rash, no masses palpable. NEUROLOGICAL: The patient is lethargic orientation could not be determined LABS AND RADIOLOGY: Reviewed results see below Assessment : Patient with significant elevated white count which is more likely related to her underlying possibly metastatic bladder tumor as there was ev idence of significant adenopathy in the abdominal with a bladder tumor status post resection and bilateral hydronephrosis or could be related to any worsening hydronephrosis on the left side as the patient did have a ureteral stent placement on the right side urine shows an E. coli which is sensitive pathogen chest CT did not show any consolidation and no other obvious focus of infection Plan: 1-we will obtain blood cultures and repeat a urine culture check a CRP 2-we will broaden her antibiotic coverage to cefepime and discontinue Rocephin 3-May benefit from repeat ultrasound of the kidneys to make sure no evidence of any worsening hydronephrosis We will follow on clinical condition and cultures to further adjust medication if needed Thank you for this consultation we will follow the patient along with you Past Medical History Past Medical History: Cancer, Diabetes Mellitus, Hyperlipidemia, Hypertension, Osteoarthritis (OA), Thyroid Disorder Additional Past Medical History / Comment(s): diverticulitis, "umb hernia repair and tumor removed-was cancerous" sx took care of it no chemo or radiation History of Any Multi-Drug Resistant Organisms: None Reported Past Surgical History: Hernia Repair Additional Past Surgical History / Comment(s): umb hernia repair and tumor removed-was cancerous, 1 dental implant Past Anesthesia/Blood Transfusion Reactions: No Reported Reaction Additional Past Anesthesia/Blood Transfusion Reaction / Comm: "has never received any blood" Past Psychological History: No Psychological Hx Reported Past Alcohol Use History: None Reported Past Drug Use History: None Reported - Past Family History Mother Family Medical History: Cancer, Diabetes Mellitus, Hyperlipidemia, Hypertension Father Family Medical History: CVA/TIA, Diabetes Mellitus, Hyperlipidemia, Hypertension Medications and Allergies Home Medications Medication Instructions Recorded Confirmed Type Insulin Detemir (Levemir) [Levemir] 50 unit SQ HS 05/13/18 06/10/21 History NIFEdipine [NIFEdipine ER] 90 mg PO DAILY 05/13/18 06/10/21 History Empagliflozin [Jardiance] 10 mg PO DAILY 06/10/21 06/10/21 History INSULIN ASPART (NovoLOG) [NovoLOG 10 unit SQ AC-BID 06/10/21 06/10/21 History (formulary)] Levothyroxine Sodium [Synthroid] 175 mcg PO DAILY 06/10/21 06/10/21 History Rosuvastatin [Crestor] 20 mg PO DAILY 06/10/21 06/10/21 History Triamterene-Hctz 37.5-25Mg 1 cap PO DAILY 06/10/21 06/10/21 History [Dyazide 37.5-25 Capsule] lisinopriL [Zestril] 5 mg PO DAILY 06/10/21 06/10/21 History Allergies Allergy/AdvReac Type Severity Reaction Status Date / Time amoxicillin Allergy Unknown Verified 06/10/21 11:38 Sulfa (Sulfonamide Allergy Rash/Hives Verified 06/10/21 11:38 Antibiotics) Physical Exam Vitals: Vital Signs Temp Pulse Resp BP BP BP Pulse Ox 06/16/21 15:43 97.8 F 61 14 171/110 97 06/16/21 14:00 55 L 19 170/81 96 06/16/21 10:46 97.7 F 64 19 162/91 98 06/16/21 06:06 97.2 F L 42 L 174/74 95 06/16/21 01:33 97.3 F L 58 L 19 174/85 95 06/15/21 21:52 97.9 F 71 20 158/96 94 L 06/15/21 20:00 71 20 06/15/21 18:02 98.5 F 73 24 170/73 95 Intake and Output 06/16/21 06/16/21 06/16/21 06:59 14:59 22:59 Output Total 600 Balance -600 Output: Urine 600 Other: Voiding Method Indwelling Catheter # Bowel Movements 0 Results CBC & Chem 7: 06/16/21 17:17 06/16/21 17:17 Labs: Abnormal Lab Results - Last 24 Hours (Table) 06/15/21 06/15/21 06/16/21 Range/Units 16:13 20:29 07:28 WBC (3.8-10.6) k/uL MCHC (31.0-37.0) g/dL RDW (11.5-15.5) % Neutrophils # (Manual) (1.3-7.7) k/uL Chloride (98-107) mmol/L BUN (7-17) mg/dL Creatinine (0.52-1.04) mg/dL Glucose (74-99) mg/dL POC Glucose (mg/dL) 143 H 176 H 182 H (75-99) mg/dL Calcium (8.4-10.2) mg/dL 06/16/21 06/16/21 06/16/21 Range/Units 09:07 09:07 11:38 WBC 32.2 H (3.8-10.6) k/uL MCHC 30.5 L (31.0-37.0) g/dL RDW 16.7 H (11.5-15.5) % Neutrophils # (Manual) 30.27 H (1.3-7.7) k/uL Chloride 108 H (98-107) mmol/L BUN 45 H (7-17) mg/dL Creatinine 1.85 H (0.52-1.04) mg/dL Glucose 164 H (74-99) mg/dL POC Glucose (mg/dL) 125 H (75-99) mg/dL Calcium 10.9 H (8.4-10.2) mg/dL
[2021-06-17] MEDS: CEFEPIME 2 GM in SODIUM CHLORIDE 0.9% 100 ML IVPB SCH (08:43)
[2021-06-17] MEDS: INSULIN ASPART (NovoLOG) 100 UNIT/ML VIAL SQ SCH ×4 (08:44→21:01)
[2021-06-17] MEDS: PANTOPRAZOLE 40 MG/10 ML VIAL IVP SCH (08:44)
[2021-06-17] MEDS: FAMOTIDINE 20 MG/2 ML VIAL IV SCH (08:44)
[2021-06-17] MEDS: HEPARIN SODIUM,PORCINE/PF 5,000 UNIT/0.5 ML SYRINGE SQ SCH ×2 (08:44→21:07)
[2021-06-17] MEDS: NYSTATIN 100,000 UNIT/GM POWD 15 GM TOPICAL SCH ×3 (08:45→21:07)
[2021-06-17 08:53] LABS: HCT 41.6 % (37.2-46.3); HGB 11.9 g/dL (12.0-15.0); MCH 24.9 pg (27.0-32.0); MCHC 28.6 g/dL (32.0-37.0); MCV 87.2 fL (80.0-97.0); Mean Platelet Volume 9.7 fL (9.5-12.2); Platelet Count 461 X 10*3/uL (140-440); RBC 4.77 X 10*6/uL (4.10-5.20); RDW 18.4 % (11.5-14.5); WBC 38.95 X 10*3/uL (4.50-10.00)
[2021-06-17] MEDS ORDERED: CHOLECALCIFEROL 25 MCG (1000 IU) TABLET PO SCH (09:00)
[2021-06-17 09:30] LABS: Basophils # (A) 0.14 X 10*3/uL (0.00-0.10); Basophils % (A) 0.4 %; Eosinophils # (A) 0 X 10*3/uL (0.04-0.35); Eosinophils % (A) 0 %; Lymphocytes # (A) 1.06 X 10*3/uL (0.90-5.00); Lymphocytes % (A) 2.7 %; Monocytes # (A) 1.23 X 10*3/uL (0.20-1.00); Monocytes % (A) 3.2 %; Neutrophils # (A) 34.91 X 10*3/uL (1.80-7.70); Neutrophils % (A) 89.6 %
[2021-06-17] MEDS: ZINC SULFATE 220 MG CAP PO SCH (09:54)
[2021-06-17] MEDS: SODIUM BICARBONATE TAB 650 MG TAB PO SCH ×2 (09:54→19:30)
[2021-06-17] MEDS: amLODIPine 5 MG TAB PO SCH (09:54)
[2021-06-17 10:15] LABS: African American GFR (CKD) 30.9 (60.0-200.0); Albumin 3.1 g/dL (3.8-4.9); Albumin/Globulin Ratio 0.79 (1.60-3.17); Anion Gap 18.5 mmol/L (10.00-18.00); BUN/Creat Ratio 22.89 Ratio (12.00-20.00); Blood Urea Nitrogen 43.5 mg/dL (9.0-27.0); C Reactive Protein 4.6 mg/dL (0.00-0.80); Calcium 10.8 mg/dL (8.7-10.3); Carbon Dioxide 23.5 mmol/L (20.0-27.5); Globulin 3.9 g/dL (1.6-3.3); Magnesium 2.4 mg/dL (1.5-2.4); Non-African American GFR(CKD) 26.6 (60.0-200.0); Potassium 4.2 mmol/L (3.5-5.5); Total Bilirubin 0.3 mg/dL (0.30-1.20)
[2021-06-17] MEDS: ASCORBIC ACID 500 MG TAB PO SCH (11:25)
[2021-06-17 11:45] LABS: Glucose,Whole Blood 140 mg/dL (75-99)
--- NOTE | 2021-06-17 12:16 | P.PN ---
Subjective Patient is seen in follow-up for acute kidney injury. Renal function stable. She underwent right-sided ureteral stent placement for the hydronephrosis is admission. There is high suspicion for bladder cancer. Pathology pending. Patient is resting in bed. Oral intake poor. Not a reliable historian. Nonoliguric. Vital signs are stable. HEENT: Head exam is unremarkable. LUNGS: Breath sounds decreased. HEART: Rate and Rhythm are regular. ABDOMEN: Soft, no distention. EXTREMITITES: No edema. Objective - Vital Signs Vital signs: Vital Signs Temp 99.3 F 06/17/21 08:00 Pulse 94 06/17/21 08:00 Resp 21 06/17/21 08:00 BP 166/79 06/17/21 08:00 Pulse Ox 94 L 06/17/21 08:00 Intake & Output 06/16/21 06/17/21 06/17/21 18:59 06:59 18:59 Output Total 520 1200 Balance -520 -1200 Output: Urine 520 1200 Other: Voiding Method Indwelling Catheter Indwelling Catheter # Bowel Movements 0 - Labs CBC & Chem 7: 06/17/21 05:28 06/17/21 05:28 Labs: Abnormal Lab Results - Last 24 Hours (Table) 06/16/21 06/16/21 06/16/21 Range/Units 16:36 17:17 17:17 WBC 34.1 H (3.8-10.6) k/uL Hgb (12.0-15.0) g/dL MCH (27.0-32.0) pg MCHC (32.0-37.0) g/dL RDW 16.8 H (11.5-15.5) % Plt Count 456 H (150-450) k/uL Plt Count Comment Absolute Nucleated RBC (0.00-0.00) X 10*3/uL Immature Gran # (0.00-0.04) X 10*3/uL Neutrophils # 31.5 H (1.3-7.7) k/uL Monocytes # 1.2 H (0-1.0) k/uL Eosinophils # (0.04-0.35) X 10*3/uL Basophils # (0.00-0.10) X 10*3/uL NRBC/100 WBC Diff (0.0-0.0) /100 WBCS Sodium (135-145) mmol/L Anion Gap (10.00-18.00) mmol/L BUN 47 H (7-17) mg/dL Creatinine 1.80 H (0.52-1.04) mg/dL Est GFR (CKD-EPI)AfAm (60.0-200.0) Est GFR (CKD-EPI)NonAf (60.0-200.0) BUN/Creatinine Ratio (12.00-20.00) Ratio Glucose 153 H (74-99) mg/dL POC Glucose (mg/dL) 149 H (75-99) mg/dL Uric Acid 12.3 H (3.7-7.4) mg/dL Calcium 10.8 H (8.4-10.2) mg/dL AST 64 H (14-36) U/L Alkaline Phosphatase 237 H (38-126) U/L C-Reactive Protein (0.00-0.80) mg/dL Albumin 3.3 L (3.5-5.0) g/dL Globulin (1.6-3.3) g/dL Albumin/Globulin Ratio (1.60-3.17) g/dL Procalcitonin (0.02-0.09) ng/mL TSH 5.650 H (0.465-4.680) mIU/L Urine Protein (Negative) Urine Glucose (UA) (Negative) Urine Blood (Negative) Ur Leukocyte Esterase (Negative) Urine RBC (0-5) /hpf Urine WBC (0-5) /hpf Urine Bacteria (None) /hpf Urine Mucus (None) /hpf 06/16/21 06/16/21 06/17/21 Range/Units 19:33 20:55 05:28 WBC (3.8-10.6) k/uL Hgb (12.0-15.0) g/dL MCH (27.0-32.0) pg MCHC (32.0-37.0) g/dL RDW (11.5-15.5) % Plt Count (150-450) k/uL Plt Count Comment Absolute Nucleated RBC (0.00-0.00) X 10*3/uL Immature Gran # (0.00-0.04) X 10*3/uL Neutrophils # (1.3-7.7) k/uL Monocytes # (0-1.0) k/uL Eosinophils # (0.04-0.35) X 10*3/uL Basophils # (0.00-0.10) X 10*3/uL NRBC/100 WBC Diff (0.0-0.0) /100 WBCS Sodium (135-145) mmol/L Anion Gap (10.00-18.00) mmol/L BUN (7-17) mg/dL Creatinine (0.52-1.04) mg/dL Est GFR (CKD-EPI)AfAm (60.0-200.0) Est GFR (CKD-EPI)NonAf (60.0-200.0) BUN/Creatinine Ratio (12.00-20.00) Ratio Glucose (74-99) mg/dL POC Glucose (mg/dL) 156 H (75-99) mg/dL Uric Acid (3.7-7.4) mg/dL Calcium (8.4-10.2) mg/dL AST (14-36) U/L Alkaline Phosphatase (38-126) U/L C-Reactive Protein (0.00-0.80) mg/dL Albumin (3.5-5.0) g/dL Globulin (1.6-3.3) g/dL Albumin/Globulin Ratio (1.60-3.17) g/dL Procalcitonin 0.74 H (0.02-0.09) ng/mL TSH (0.465-4.680) mIU/L Urine Protein 1+ H (Negative) Urine Glucose (UA) 2+ H (Negative) Urine Blood Moderate H (Negative) Ur Leukocyte Esterase Moderate H (Negative) Urine RBC 18 H (0-5) /hpf Urine WBC 15 H (0-5) /hpf Urine Bacteria Rare H (None) /hpf Urine Mucus Rare H (None) /hpf 06/17/21 06/17/21 06/17/21 Range/Units 05:28 05:28 07:04 WBC 38.95 H (3.8-10.6) k/uL Hgb 11.9 L (12.0-15.0) g/dL MCH 24.9 L (27.0-32.0) pg MCHC 28.6 L (32.0-37.0) g/dL RDW 18.4 H (11.5-15.5) % Plt Count 461 H (150-450) k/uL Plt Count Comment INCREASED A Absolute Nucleated RBC 0.34 H (0.00-0.00) X 10*3/uL Immature Gran # 1.61 H (0.00-0.04) X 10*3/uL Neutrophils # 34.91 H (1.3-7.7) k/uL Monocytes # 1.23 H (0-1.0) k/uL Eosinophils # 0 L (0.04-0.35) X 10*3/uL Basophils # 0.14 H (0.00-0.10) X 10*3/uL NRBC/100 WBC Diff 0.9 H (0.0-0.0) /100 WBCS Sodium 148 H (135-145) mmol/L Anion Gap 18.50 H (10.00-18.00) mmol/L BUN 43.5 H (7-17) mg/dL Creatinine 1.9 H (0.52-1.04) mg/dL Est GFR (CKD-EPI)AfAm 30.9 L (60.0-200.0) Est GFR (CKD-EPI)NonAf 26.6 L (60.0-200.0) BUN/Creatinine Ratio 22.89 H (12.00-20.00) Ratio Glucose 146 H (74-99) mg/dL POC Glucose (mg/dL) 144 H (75-99) mg/dL Uric Acid (3.7-7.4) mg/dL Calcium 10.8 H (8.4-10.2) mg/dL AST 43 H (14-36) U/L Alkaline Phosphatase 203 H (38-126) U/L C-Reactive Protein 4.60 H (0.00-0.80) mg/dL Albumin 3.1 L (3.5-5.0) g/dL Globulin 3.9 H (1.6-3.3) g/dL Albumin/Globulin Ratio 0.79 L (1.60-3.17) g/dL Procalcitonin (0.02-0.09) ng/mL TSH (0.465-4.680) mIU/L Urine Protein (Negative) Urine Glucose (UA) (Negative) Urine Blood (Negative) Ur Leukocyte Esterase (Negative) Urine RBC (0-5) /hpf Urine WBC (0-5) /hpf Urine Bacteria (None) /hpf Urine Mucus (None) /hpf 06/17/21 Range/Units 11:43 WBC (3.8-10.6) k/uL Hgb (12.0-15.0) g/dL MCH (27.0-32.0) pg MCHC (32.0-37.0) g/dL RDW (11.5-15.5) % Plt Count (150-450) k/uL Plt Count Comment Absolute Nucleated RBC (0.00-0.00) X 10*3/uL Immature Gran # (0.00-0.04) X 10*3/uL Neutrophils # (1.3-7.7) k/uL Monocytes # (0-1.0) k/uL Eosinophils # (0.04-0.35) X 10*3/uL Basophils # (0.00-0.10) X 10*3/uL NRBC/100 WBC Diff (0.0-0.0) /100 WBCS Sodium (135-145) mmol/L Anion Gap (10.00-18.00) mmol/L BUN (7-17) mg/dL Creatinine (0.52-1.04) mg/dL Est GFR (CKD-EPI)AfAm (60.0-200.0) Est GFR (CKD-EPI)NonAf (60.0-200.0) BUN/Creatinine Ratio (12.00-20.00) Ratio Glucose (74-99) mg/dL POC Glucose (mg/dL) 140 H (75-99) mg/dL Uric Acid (3.7-7.4) mg/dL Calcium (8.4-10.2) mg/dL AST (14-36) U/L Alkaline Phosphatase (38-126) U/L C-Reactive Protein (0.00-0.80) mg/dL Albumin (3.5-5.0) g/dL Globulin (1.6-3.3) g/dL Albumin/Globulin Ratio (1.60-3.17) g/dL Procalcitonin (0.02-0.09) ng/mL TSH (0.465-4.680) mIU/L Urine Protein (Negative) Urine Glucose (UA) (Negative) Urine Blood (Negative) Ur Leukocyte Esterase (Negative) Urine RBC (0-5) /hpf Urine WBC (0-5) /hpf Urine Bacteria (None) /hpf Urine Mucus (None) /hpf Microbiology - Last 24 Hours (Table) 06/16/21 19:33 Urine Culture - Preliminary Urine,Voided Assessment and Plan Plan: Assessment: 1. Acute kidney injury secondary to obstructive uropathy and hypercalcemia- induced ATN. Renal function stable. 2. Hydronephrosis status post right ureteral stent placement this admission. 3. Metabolic acidosis secondary to acute kidney injury. On oral bicarb. 4. Hypercalcemia with suppressed PTH. Vitamin D levels not elevated. Likely due to underlying malignancy. 5. E. coli UTI. On antibiotics. 6. Hypernatremia from lack of oral water intake. Plan: I will change IV fluids to D5W to be run at 75 mL an hour. Status post pamidronate June 15. Stop vit D. Follow-up immunofixation studies. Pathology pending. Add calcitonin.
[2021-06-17] MEDS: DEXTROSE 5% IN WATER 1,000 ML IV SCH ×2 (12:57→21:08)
[2021-06-17] MEDS: LACTATED RINGERS 1,000 ML IV SCH (13:05)
[2021-06-17 13:51] VITALS: BMI 44.2
[2021-06-17] MEDS ORDERED: CALCITONIN INJ 200 UNIT/ML (MDV) VIAL IM ONE (14:00)
--- NOTE | 2021-06-17 15:45 | P.PN ---
Subjective Progress Note Date: 06/17/21 Principal diagnosis: CHIEF COMPLAINT: Abdominal pain HISTORY OF PRESENT ILLNESS: Patient is resting. Patient had been complaining of abdominal pain. Oncology service has adjusted pain medication. Patient is confused. She is status post cystoscopy, TURBT right retro-pyelogram and right stent placement for bladder tumor with bilateral hydronephrosis with Dr. Mukherjee. Biopsy results are pending. She has poor oral intake. Afebrile. Ultrasound shows mild bilateral hydronephrosis. No evidence of a solid renal mass. Urinary bladder is empty. Abdominal x-ray nonspecific bowel gas pattern. Retained oral contrast throughout: Likely residual contrast status post 06/10 CT. Appropriate x-ray position of right ureteral stent. WBC is up to 38.95 Hgb 11.9 and platelets 461 creatinine 1.9 PHYSICAL EXAM: VITAL SIGNS: Reviewed. GENERAL: Well-developed in no acute distress. HEENT: No sclera icterus. Extraocular movements grossly intact. Moist buccal mucosa. Head is atraumatic, normocephalic. ABDOMEN: Soft. Nondistended. NEUROLOGIC: Confused ASSESSMENT: 1. Abdominal pain 2. Candidiasis of abdominal fold. Showing improvement 3. Extensive peritoneal and pelvic adenopathy 4. Bilateral hydroureteronephrosis and distal ureteral secondary to adenopathy 5. Bladder tumor with bilateral hydronephrosis status post stent. Biopsy result pending 6. UTI 7. Acute renal failure 8. COVID-19 positive 9. Elevated CA 125 PLAN: -No general surgical intervention planned -Continue oncology and urology workup -Continue nystatin powder for abdominal skin fold candidiasis -General surgery will sign off. Please call with any questions or concerns Physician [employer] Supervisor note has been reviewed by physician. Signing provider agrees with the documented findings, assessment, and plan of care. Objective - Vital Signs Vital signs: Vital Signs Temp 99.1 F 06/17/21 14:00 Pulse 96 06/17/21 14:00 Resp 20 06/17/21 14:00 BP 180/88 06/17/21 14:00 Pulse Ox 94 L 06/17/21 14:00 Intake & Output 06/16/21 06/17/21 06/17/21 18:59 06:59 18:59 Intake Total 10 Output Total 520 1200 Balance -520 -1200 10 Weight 113.398 kg Intake: Oral 10 Output: Urine 520 1200 Other: Voiding Method Indwelling Catheter Indwelling Catheter # Bowel Movements 0 - Labs CBC & Chem 7: 06/17/21 05:28 06/17/21 05:28 Labs: Abnormal Lab Results - Last 24 Hours (Table) 06/16/21 06/16/21 06/16/21 Range/Units 16:36 17:17 17:17 WBC 34.1 H (3.8-10.6) k/uL Hgb (12.0-15.0) g/dL MCH (27.0-32.0) pg MCHC (32.0-37.0) g/dL RDW 16.8 H (11.5-15.5) % Plt Count 456 H (150-450) k/uL Plt Count Comment Absolute Nucleated RBC (0.00-0.00) X 10*3/uL Immature Gran # (0.00-0.04) X 10*3/uL Neutrophils # 31.5 H (1.3-7.7) k/uL Monocytes # 1.2 H (0-1.0) k/uL Eosinophils # (0.04-0.35) X 10*3/uL Basophils # (0.00-0.10) X 10*3/uL NRBC/100 WBC Diff (0.0-0.0) /100 WBCS Sodium (135-145) mmol/L Anion Gap (10.00-18.00) mmol/L BUN 47 H (7-17) mg/dL Creatinine 1.80 H (0.52-1.04) mg/dL Est GFR (CKD-EPI)AfAm (60.0-200.0) Est GFR (CKD-EPI)NonAf (60.0-200.0) BUN/Creatinine Ratio (12.00-20.00) Ratio Glucose 153 H (74-99) mg/dL POC Glucose (mg/dL) 149 H (75-99) mg/dL Uric Acid 12.3 H (3.7-7.4) mg/dL Calcium 10.8 H (8.4-10.2) mg/dL AST 64 H (14-36) U/L Alkaline Phosphatase 237 H (38-126) U/L C-Reactive Protein (0.00-0.80) mg/dL Albumin 3.3 L (3.5-5.0) g/dL Globulin (1.6-3.3) g/dL Albumin/Globulin Ratio (1.60-3.17) g/dL Procalcitonin (0.02-0.09) ng/mL TSH 5.650 H (0.465-4.680) mIU/L Urine Protein (Negative) Urine Glucose (UA) (Negative) Urine Blood (Negative) Ur Leukocyte Esterase (Negative) Urine RBC (0-5) /hpf Urine WBC (0-5) /hpf Urine Bacteria (None) /hpf Urine Mucus (None) /hpf 06/16/21 06/16/21 06/17/21 Range/Units 19:33 20:55 05:28 WBC (3.8-10.6) k/uL Hgb (12.0-15.0) g/dL MCH (27.0-32.0) pg MCHC (32.0-37.0) g/dL RDW (11.5-15.5) % Plt Count (150-450) k/uL Plt Count Comment Absolute Nucleated RBC (0.00-0.00) X 10*3/uL Immature Gran # (0.00-0.04) X 10*3/uL Neutrophils # (1.3-7.7) k/uL Monocytes # (0-1.0) k/uL Eosinophils # (0.04-0.35) X 10*3/uL Basophils # (0.00-0.10) X 10*3/uL NRBC/100 WBC Diff (0.0-0.0) /100 WBCS Sodium (135-145) mmol/L Anion Gap (10.00-18.00) mmol/L BUN (7-17) mg/dL Creatinine (0.52-1.04) mg/dL Est GFR (CKD-EPI)AfAm (60.0-200.0) Est GFR (CKD-EPI)NonAf (60.0-200.0) BUN/Creatinine Ratio (12.00-20.00) Ratio Glucose (74-99) mg/dL POC Glucose (mg/dL) 156 H (75-99) mg/dL Uric Acid (3.7-7.4) mg/dL Calcium (8.4-10.2) mg/dL AST (14-36) U/L Alkaline Phosphatase (38-126) U/L C-Reactive Protein (0.00-0.80) mg/dL Albumin (3.5-5.0) g/dL Globulin (1.6-3.3) g/dL Albumin/Globulin Ratio (1.60-3.17) g/dL Procalcitonin 0.74 H (0.02-0.09) ng/mL TSH (0.465-4.680) mIU/L Urine Protein 1+ H (Negative) Urine Glucose (UA) 2+ H (Negative) Urine Blood Moderate H (Negative) Ur Leukocyte Esterase Moderate H (Negative) Urine RBC 18 H (0-5) /hpf Urine WBC 15 H (0-5) /hpf Urine Bacteria Rare H (None) /hpf Urine Mucus Rare H (None) /hpf 06/17/21 06/17/21 06/17/21 Range/Units 05:28 05:28 07:04 WBC 38.95 H (3.8-10.6) k/uL Hgb 11.9 L (12.0-15.0) g/dL MCH 24.9 L (27.0-32.0) pg MCHC 28.6 L (32.0-37.0) g/dL RDW 18.4 H (11.5-15.5) % Plt Count 461 H (150-450) k/uL Plt Count Comment INCREASED A Absolute Nucleated RBC 0.34 H (0.00-0.00) X 10*3/uL Immature Gran # 1.61 H (0.00-0.04) X 10*3/uL Neutrophils # 34.91 H (1.3-7.7) k/uL Monocytes # 1.23 H (0-1.0) k/uL Eosinophils # 0 L (0.04-0.35) X 10*3/uL Basophils # 0.14 H (0.00-0.10) X 10*3/uL NRBC/100 WBC Diff 0.9 H (0.0-0.0) /100 WBCS Sodium 148 H (135-145) mmol/L Anion Gap 18.50 H (10.00-18.00) mmol/L BUN 43.5 H (7-17) mg/dL Creatinine 1.9 H (0.52-1.04) mg/dL Est GFR (CKD-EPI)AfAm 30.9 L (60.0-200.0) Est GFR (CKD-EPI)NonAf 26.6 L (60.0-200.0) BUN/Creatinine Ratio 22.89 H (12.00-20.00) Ratio Glucose 146 H (74-99) mg/dL POC Glucose (mg/dL) 144 H (75-99) mg/dL Uric Acid (3.7-7.4) mg/dL Calcium 10.8 H (8.4-10.2) mg/dL AST 43 H (14-36) U/L Alkaline Phosphatase 203 H (38-126) U/L C-Reactive Protein 4.60 H (0.00-0.80) mg/dL Albumin 3.1 L (3.5-5.0) g/dL Globulin 3.9 H (1.6-3.3) g/dL Albumin/Globulin Ratio 0.79 L (1.60-3.17) g/dL Procalcitonin (0.02-0.09) ng/mL TSH (0.465-4.680) mIU/L Urine Protein (Negative) Urine Glucose (UA) (Negative) Urine Blood (Negative) Ur Leukocyte Esterase (Negative) Urine RBC (0-5) /hpf Urine WBC (0-5) /hpf Urine Bacteria (None) /hpf Urine Mucus (None) /hpf 06/17/21 Range/Units 11:43 WBC (3.8-10.6) k/uL Hgb (12.0-15.0) g/dL MCH (27.0-32.0) pg MCHC (32.0-37.0) g/dL RDW (11.5-15.5) % Plt Count (150-450) k/uL Plt Count Comment Absolute Nucleated RBC (0.00-0.00) X 10*3/uL Immature Gran # (0.00-0.04) X 10*3/uL Neutrophils # (1.3-7.7) k/uL Monocytes # (0-1.0) k/uL Eosinophils # (0.04-0.35) X 10*3/uL Basophils # (0.00-0.10) X 10*3/uL NRBC/100 WBC Diff (0.0-0.0) /100 WBCS Sodium (135-145) mmol/L Anion Gap (10.00-18.00) mmol/L BUN (7-17) mg/dL Creatinine (0.52-1.04) mg/dL Est GFR (CKD-EPI)AfAm (60.0-200.0) Est GFR (CKD-EPI)NonAf (60.0-200.0) BUN/Creatinine Ratio (12.00-20.00) Ratio Glucose (74-99) mg/dL POC Glucose (mg/dL) 140 H (75-99) mg/dL Uric Acid (3.7-7.4) mg/dL Calcium (8.4-10.2) mg/dL AST (14-36) U/L Alkaline Phosphatase (38-126) U/L C-Reactive Protein (0.00-0.80) mg/dL Albumin (3.5-5.0) g/dL Globulin (1.6-3.3) g/dL Albumin/Globulin Ratio (1.60-3.17) g/dL Procalcitonin (0.02-0.09) ng/mL TSH (0.465-4.680) mIU/L Urine Protein (Negative) Urine Glucose (UA) (Negative) Urine Blood (Negative) Ur Leukocyte Esterase (Negative) Urine RBC (0-5) /hpf Urine WBC (0-5) /hpf Urine Bacteria (None) /hpf Urine Mucus (None) /hpf Microbiology - Last 24 Hours (Table) 06/16/21 19:33 Urine Culture - Preliminary Urine,Voided
[2021-06-17 16:30] LABS: Glucose,Whole Blood 158 mg/dL (75-99)
[2021-06-17] MEDS: hydrALAZINE HCL 20 MG/ML 1 ML VIAL IVP PRN (16:52)
--- NOTE | 2021-06-17 20:14 | P.PN ---
Subjective Progress Note Date: 06/17/21 Principal diagnosis: mass in bladder Patient seen today with dr parkinson, she was resting comfortably Objective - Vital Signs Vital signs: Vital Signs Temp 99.1 F 06/17/21 14:00 Pulse 96 06/17/21 14:00 Resp 20 06/17/21 14:00 BP 180/88 06/17/21 14:00 Pulse Ox 94 L 06/17/21 14:00 Intake & Output 06/17/21 06/17/21 06/18/21 06:59 18:59 06:59 Intake Total 10 Output Total 1200 600 Balance -1200 -590 Weight 113.398 kg Intake: Oral 10 Output: Urine 1200 600 Other: Voiding Method Indwelling Catheter Indwelling Catheter # Bowel Movements 0 1 - Exam Sleeping Still in pain Lethargic and moaning when awake Lungs: Diminished Heart RR Abdomen: tender Ext: edema - Labs CBC & Chem 7: 06/17/21 05:28 06/17/21 05:28 Labs: Abnormal Lab Results - Last 24 Hours (Table) 06/16/21 06/16/21 06/17/21 Range/Units 19:33 20:55 05:28 WBC (4.50-10.00) X 10*3/uL Hgb (12.0-15.0) g/dL MCH (27.0-32.0) pg MCHC (32.0-37.0) g/dL RDW (11.5-14.5) % Plt Count (140-440) X 10*3/uL Plt Count Comment Absolute Nucleated RBC (0.00-0.00) X 10*3/uL Immature Gran # (0.00-0.04) X 10*3/uL Neutrophils # (1.80-7.70) X 10*3/uL Monocytes # (0.20-1.00) X 10*3/uL Eosinophils # (0.04-0.35) X 10*3/uL Basophils # (0.00-0.10) X 10*3/uL NRBC/100 WBC Diff (0.0-0.0) /100 WBCS Sodium (135-145) mmol/L Anion Gap (10.00-18.00) mmol/L BUN (9.0-27.0) mg/dL Creatinine (0.6-1.5) mg/dL Est GFR (CKD-EPI)AfAm (60.0-200.0) Est GFR (CKD-EPI)NonAf (60.0-200.0) BUN/Creatinine Ratio (12.00-20.00) Ratio Glucose (70-110) mg/dL POC Glucose (mg/dL) 156 H (75-99) mg/dL Calcium (8.7-10.3) mg/dL AST (13-35) U/L Alkaline Phosphatase (41-126) U/L C-Reactive Protein (0.00-0.80) mg/dL Albumin (3.8-4.9) g/dL Globulin (1.6-3.3) g/dL Albumin/Globulin Ratio (1.60-3.17) g/dL Procalcitonin 0.74 H (0.02-0.09) ng/mL Urine Protein 1+ H (Negative) Urine Glucose (UA) 2+ H (Negative) Urine Blood Moderate H (Negative) Ur Leukocyte Esterase Moderate H (Negative) Urine RBC 18 H (0-5) /hpf Urine WBC 15 H (0-5) /hpf Urine Bacteria Rare H (None) /hpf Urine Mucus Rare H (None) /hpf 06/17/21 06/17/21 06/17/21 Range/Units 05:28 05:28 07:04 WBC 38.95 H (4.50-10.00) X 10*3/uL Hgb 11.9 L (12.0-15.0) g/dL MCH 24.9 L (27.0-32.0) pg MCHC 28.6 L (32.0-37.0) g/dL RDW 18.4 H (11.5-14.5) % Plt Count 461 H (140-440) X 10*3/uL Plt Count Comment INCREASED A Absolute Nucleated RBC 0.34 H (0.00-0.00) X 10*3/uL Immature Gran # 1.61 H (0.00-0.04) X 10*3/uL Neutrophils # 34.91 H (1.80-7.70) X 10*3/uL Monocytes # 1.23 H (0.20-1.00) X 10*3/uL Eosinophils # 0 L (0.04-0.35) X 10*3/uL Basophils # 0.14 H (0.00-0.10) X 10*3/uL NRBC/100 WBC Diff 0.9 H (0.0-0.0) /100 WBCS Sodium 148 H (135-145) mmol/L Anion Gap 18.50 H (10.00-18.00) mmol/L BUN 43.5 H (9.0-27.0) mg/dL Creatinine 1.9 H (0.6-1.5) mg/dL Est GFR (CKD-EPI)AfAm 30.9 L (60.0-200.0) Est GFR (CKD-EPI)NonAf 26.6 L (60.0-200.0) BUN/Creatinine Ratio 22.89 H (12.00-20.00) Ratio Glucose 146 H (70-110) mg/dL POC Glucose (mg/dL) 144 H (75-99) mg/dL Calcium 10.8 H (8.7-10.3) mg/dL AST 43 H (13-35) U/L Alkaline Phosphatase 203 H (41-126) U/L C-Reactive Protein 4.60 H (0.00-0.80) mg/dL Albumin 3.1 L (3.8-4.9) g/dL Globulin 3.9 H (1.6-3.3) g/dL Albumin/Globulin Ratio 0.79 L (1.60-3.17) g/dL Procalcitonin (0.02-0.09) ng/mL Urine Protein (Negative) Urine Glucose (UA) (Negative) Urine Blood (Negative) Ur Leukocyte Esterase (Negative) Urine RBC (0-5) /hpf Urine WBC (0-5) /hpf Urine Bacteria (None) /hpf Urine Mucus (None) /hpf 06/17/21 06/17/21 Range/Units 11:43 16:28 WBC (4.50-10.00) X 10*3/uL Hgb (12.0-15.0) g/dL MCH (27.0-32.0) pg MCHC (32.0-37.0) g/dL RDW (11.5-14.5) % Plt Count (140-440) X 10*3/uL Plt Count Comment Absolute Nucleated RBC (0.00-0.00) X 10*3/uL Immature Gran # (0.00-0.04) X 10*3/uL Neutrophils # (1.80-7.70) X 10*3/uL Monocytes # (0.20-1.00) X 10*3/uL Eosinophils # (0.04-0.35) X 10*3/uL Basophils # (0.00-0.10) X 10*3/uL NRBC/100 WBC Diff (0.0-0.0) /100 WBCS Sodium (135-145) mmol/L Anion Gap (10.00-18.00) mmol/L BUN (9.0-27.0) mg/dL Creatinine (0.6-1.5) mg/dL Est GFR (CKD-EPI)AfAm (60.0-200.0) Est GFR (CKD-EPI)NonAf (60.0-200.0) BUN/Creatinine Ratio (12.00-20.00) Ratio Glucose (70-110) mg/dL POC Glucose (mg/dL) 140 H 158 H (75-99) mg/dL Calcium (8.7-10.3) mg/dL AST (13-35) U/L Alkaline Phosphatase (41-126) U/L C-Reactive Protein (0.00-0.80) mg/dL Albumin (3.8-4.9) g/dL Globulin (1.6-3.3) g/dL Albumin/Globulin Ratio (1.60-3.17) g/dL Procalcitonin (0.02-0.09) ng/mL Urine Protein (Negative) Urine Glucose (UA) (Negative) Urine Blood (Negative) Ur Leukocyte Esterase (Negative) Urine RBC (0-5) /hpf Urine WBC (0-5) /hpf Urine Bacteria (None) /hpf Urine Mucus (None) /hpf Microbiology - Last 24 Hours (Table) 06/16/21 17:17 Blood Culture - Preliminary Blood No Growth after 24 hours 06/16/21 19:33 Urine Culture - Final Urine,Voided Assessment and Plan (1) Abdominal lymphadenopathy Current Visit: Yes Status: Acute Code(s): R59.0 - LOCALIZED ENLARGED LYMPH NODES SNOMED Code(s): 744095844 (2) UTI (urinary tract infection) Current Visit: Yes Status: Acute Code(s): N39.0 - URINARY TRACT INFECTION, SITE NOT SPECIFIED SNOMED Code(s): 63619811 (3) Hypercalcemia Current Visit: Yes Status: Acute Code(s): E83.52 - HYPERCALCEMIA SNOMED Code(s): 18067289 Plan: Await Urology for diagnosis.After a pathology has resulted further recommendation can be made. Discussed with Primary team Patient is in a lot of pain when evaluated, added bowel regimen, attempted to add long acting however our system would not allow until she reached a week on short acting which including her home pain regimen has. CT chest without and bone scan is negative for metastatic disease Dexamethasone also added for attempt to gain control of malignant related refr actory pain Long discussion patient's , we discussed wishes related to extensive life saving measures and goals of care and he would like to continue measures until a clear picture of what we are facing Fentanyl patch to replace MS Contin as not able to take PO with her current distress while awake Dilaudid PRN Repeat infectious work-up and abdominal imaging +UTI - Urinary bladder ultrasound for potentially relating to her increasing pain - Bilateral hydronbephrosis is noted and this appears to be same as prior. Urology is following, creatinine does not appear improving. ?remaining obstructive Continue to await pathology Physician attest: i have completed the full history and physical and agree with above dictation, dictated as a scribe
[2021-06-17 20:50] LABS: Glucose,Whole Blood 198 mg/dL (75-99)
[2021-06-17] MEDS: CEFEPIME 1 GM in SODIUM CHLORIDE 0.9% 50 ML IVPB SCH (21:07)
--- NOTE | 2021-06-17 22:36 | PN ---
PROGRESS NOTE DATE OF SERVICE: 06/17/2021 REASON FOR FOLLOWUP: Leukocytosis. INTERVAL HISTORY: Patient is afebrile. The patient remains to be sleepy, lethargic. Currently the pain is better controlled. No vomiting, diarrhea or any change were reported by nursing staff. The patient herself did not provide any history. PHYSICAL EXAMINATION: Blood pressure 182/88 with a pulse of 90, temperature 98.1. She is 94% on room air. General description is an elderly female lying in bed in no distress. Respiratory system: Unlabored breathing. Coarse breath sounds at the base bilaterally. No wheeze. Heart S1, S2. Regular rate and rhythm. Abdomen soft, mildly distended. Extremities: No edema of the feet. LABS: Hemoglobin is 11.8, white count 38.95, creatinine is 1.9. Repeat ultrasound mild bilateral hydronephrosis. DIAGNOSTIC IMPRESSION AND PLAN: Patient with leukocytosis in this patient with likely bladder cancer with bilateral hydronephrosis status post right-sided ureteral stent placement. Did have an E coli in the urine. Repeat is so far pending. The patient did have worsening of her white count could be related to the underlying malignancy. The patient does not look toxic. She is on cefepime while waiting for repeat culture to finalize. We will add Diflucan empirically response. Continue supportive care. MMODL / IJN: [id number] /
[2021-06-18] MEDS: FLUCONAZOLE IN NACL,ISO-OSM 200 MG in SALINE 1 100ML.BAG IVPB SCH ×2 (01:28→08:35)
[2021-06-18] MEDS: HYDROmorphone 1 MG/ML 1 ML SYRINGE IVP PRN ×2 (01:31→06:09)
[2021-06-18] MEDS: LORazepam 2 MG/ML INJ IV PRN ×4 (04:14→22:45)
--- NOTE | 2021-06-18 04:16 | XR ---
EXAMINATION TYPE: XR chest 1V portable DATE OF EXAM: 06/18/2021 COMPARISON: 06/10/2021 HISTORY: Short of breath TECHNIQUE: FINDINGS: There is some atelectasis at the left lung base. There is no heart failure. Heart size is n ormal. IMPRESSION: Poor inspiration with increased atelectasis at the lung bases bilaterally compared to old exam.
[2021-06-18] MEDS ORDERED: HYDROmorphone 1 MG/ML 1 ML SYRINGE IVP PRN (07:00)
[2021-06-18 07:17] LABS: Glucose,Whole Blood 231 mg/dL (75-99)
[2021-06-18] MEDS: PANTOPRAZOLE 40 MG/10 ML VIAL IVP SCH (08:23)
[2021-06-18] MEDS: NYSTATIN 100,000 UNIT/GM POWD 15 GM TOPICAL SCH ×3 (08:23→20:37)
[2021-06-18] MEDS: CEFEPIME 1 GM in SODIUM CHLORIDE 0.9% 50 ML IVPB SCH ×2 (08:23→20:43)
[2021-06-18] MEDS: INSULIN ASPART (NovoLOG) 100 UNIT/ML VIAL SQ SCH ×5 (08:23→20:44)
[2021-06-18] MEDS: FAMOTIDINE 20 MG/2 ML VIAL IV SCH (08:24)
[2021-06-18] MEDS: HEPARIN SODIUM,PORCINE/PF 5,000 UNIT/0.5 ML SYRINGE SQ SCH ×2 (08:24→20:43)
[2021-06-18] MEDS ORDERED: FUROSEMIDE 10 MG/ML 2 ML VIAL IV ONE ×2 (08:42→12:44)
[2021-06-18 09:31] LABS: HGB 12.1 g/dL (12.0-15.0); MCH 25.4 pg (27.0-32.0); MCHC 28.8 g/dL (32.0-37.0); MCV 88.1 fL (80.0-97.0); Platelet Count 472 X 10*3/uL (140-440); RBC 4.77 X 10*6/uL (4.10-5.20); RDW 18.8 % (11.5-14.5)
--- NOTE | 2021-06-18 10:06 | P.PN ---
Subjective Patient is seen in follow-up for acute kidney injury. Renal function stable. She underwent right-sided ureteral stent placement for the hydronephrosis is admission. There is high suspicion for bladder cancer. Pathology pending. Patient is resting in bed. Not tolerating oral intake. Not a reliable historian. present at bedside. Nonoliguric. Vital signs are stable. HEENT: Head exam is unremarkable. On nasal cannula. LUNGS: Breath sounds decreased. HEART: Rate and Rhythm are regular. ABDOMEN: Soft, no distention. EXTREMITITES: No edema. Objective - Vital Signs Vital signs: Vital Signs Temp 98.6 F 06/18/21 06:00 Pulse 106 H 06/18/21 06:00 Resp 28 H 06/18/21 06:00 BP 155/89 06/18/21 06:00 Pulse Ox 92 L 06/18/21 06:00 Intake & Output 06/17/21 06/18/21 06/18/21 18:59 06:59 18:59 Intake Total 10 Output Total 600 900 Balance -590 -900 Weight 113.398 kg Intake: Oral 10 Output: Urine 600 900 Other: Voiding Method Indwelling Catheter Indwelling Catheter # Bowel Movements 1 - Labs CBC & Chem 7: 06/18/21 06:50 06/17/21 05:28 Labs: Abnormal Lab Results - Last 24 Hours (Table) 06/17/21 06/17/21 06/17/21 Range/Units 05:28 05:28 11:43 WBC (4.50-10.00) X 10*3/uL MCH (27.0-32.0) pg MCHC (32.0-37.0) g/dL RDW (11.5-14.5) % Plt Count (140-440) X 10*3/uL Absolute Nucleated RBC (0.00-0.00) X 10*3/uL NRBC/100 WBC Diff (0.0-0.0) /100 WBCS Sodium 148 H (135-145) mmol/L Anion Gap 18.50 H (10.00-18.00) mmol/L BUN 43.5 H (9.0-27.0) mg/dL Creatinine 1.9 H (0.6-1.5) mg/dL Est GFR (CKD-EPI)AfAm 30.9 L (60.0-200.0) Est GFR (CKD-EPI)NonAf 26.6 L (60.0-200.0) BUN/Creatinine Ratio 22.89 H (12.00-20.00) Ratio Glucose 146 H (70-110) mg/dL POC Glucose (mg/dL) 140 H (75-99) mg/dL Calcium 10.8 H (8.7-10.3) mg/dL AST 43 H (13-35) U/L Alkaline Phosphatase 203 H (41-126) U/L C-Reactive Protein 4.60 H (0.00-0.80) mg/dL Albumin 3.1 L (3.8-4.9) g/dL Globulin 3.9 H (1.6-3.3) g/dL Albumin/Globulin Ratio 0.79 L (1.60-3.17) g/dL Procalcitonin 0.74 H (0.02-0.09) ng/mL 06/17/21 06/17/21 06/18/21 Range/Units 16:28 20:49 06:50 WBC 35.00 H (4.50-10.00) X 10*3/uL MCH 25.4 L (27.0-32.0) pg MCHC 28.8 L (32.0-37.0) g/dL RDW 18.8 H (11.5-14.5) % Plt Count 472 H (140-440) X 10*3/uL Absolute Nucleated RBC 0.76 H (0.00-0.00) X 10*3/uL NRBC/100 WBC Diff 2.2 H (0.0-0.0) /100 WBCS Sodium (135-145) mmol/L Anion Gap (10.00-18.00) mmol/L BUN (9.0-27.0) mg/dL Creatinine (0.6-1.5) mg/dL Est GFR (CKD-EPI)AfAm (60.0-200.0) Est GFR (CKD-EPI)NonAf (60.0-200.0) BUN/Creatinine Ratio (12.00-20.00) Ratio Glucose (70-110) mg/dL POC Glucose (mg/dL) 158 H 198 H (75-99) mg/dL Calcium (8.7-10.3) mg/dL AST (13-35) U/L Alkaline Phosphatase (41-126) U/L C-Reactive Protein (0.00-0.80) mg/dL Albumin (3.8-4.9) g/dL Globulin (1.6-3.3) g/dL Albumin/Globulin Ratio (1.60-3.17) g/dL Procalcitonin (0.02-0.09) ng/mL 06/18/21 Range/Units 07:15 WBC (4.50-10.00) X 10*3/uL MCH (27.0-32.0) pg MCHC (32.0-37.0) g/dL RDW (11.5-14.5) % Plt Count (140-440) X 10*3/uL Absolute Nucleated RBC (0.00-0.00) X 10*3/uL NRBC/100 WBC Diff (0.0-0.0) /100 WBCS Sodium (135-145) mmol/L Anion Gap (10.00-18.00) mmol/L BUN (9.0-27.0) mg/dL Creatinine (0.6-1.5) mg/dL Est GFR (CKD-EPI)AfAm (60.0-200.0) Est GFR (CKD-EPI)NonAf (60.0-200.0) BUN/Creatinine Ratio (12.00-20.00) Ratio Glucose (70-110) mg/dL POC Glucose (mg/dL) 231 H (75-99) mg/dL Calcium (8.7-10.3) mg/dL AST (13-35) U/L Alkaline Phosphatase (41-126) U/L C-Reactive Protein (0.00-0.80) mg/dL Albumin (3.8-4.9) g/dL Globulin (1.6-3.3) g/dL Albumin/Globulin Ratio (1.60-3.17) g/dL Procalcitonin (0.02-0.09) ng/mL Microbiology - Last 24 Hours (Table) 06/16/21 17:17 Blood Culture - Preliminary Blood No Growth after 24 hours 06/16/21 19:33 Urine Culture - Final Urine,Voided Assessment and Plan Plan: Assessment: 1. Acute kidney injury secondary to obstructive uropathy and hypercalcemia- induced ATN. Renal function stable. 2. Hydronephrosis status post right ureteral stent placement this admission. 3. Metabolic acidosis secondary to acute kidney injury. On oral bicarb. 4. Hypercalcemia with suppressed PTH. Vitamin D levels not elevated. No monoclonality noted. Likely due to underlying malignancy. 5. E. coli UTI. On antibiotics. 6. Hypernatremia from lack of oral water intake. Plan: Maintain D5W. Status post pamidronate June 15; Also received IM calcitonin on June 17. Stopped vit D. Follow-up immunofixation studies. Pathology pending.
[2021-06-18] MEDS: hydrALAZINE HCL 20 MG/ML 1 ML VIAL IVP PRN ×2 (10:25→17:09)
[2021-06-18 10:38] LABS: Basophils # (M) 0 X 10*3/uL (0.00-0.10); Eosinophils # (M) 0 X 10*3/uL (0.04-0.35); Lymphocytes # (M) 1.05 X 10*3/uL (0.90-5.00); Metamyelocytes % 1 % (0-0); Monocytes # (M) 1.05 X 10*3/uL (0.20-1.00); Neutrophils # (M) 32.55 X 10*3/uL (2.00-8.90); Neutrophils % (M) 93 %
--- NOTE | 2021-06-18 11:10 | P.PN ---
Subjective Progress Note Date: 06/17/21 Principal diagnosis: Underlying malignancy with lymphadenopathy Obstructive uropathy Acute COVID-19 infection This is a pleasant 70 years old female with past medical history of Diabetes Mellitus, Hyperlipidemia, Hypertension, Osteoarthritis, hypothyroidism, history of diverticulosis and diverticulitis. Her PCP is Dr. Tammy Patricia, at [facility] She presents because of abdominal pain and urinary symptoms. She has a pain for more than a month, and Smillie in the lower abdomen again across both sides and associated with some little back pain felt like cramping. Was more severe this morning 02/19 and associated with more difficulty with urination which was ongoing for the last 2 weeks getting worse gradually, today it was harder for her to be. Besides each time she P's her lower abdominal pain become more severe. She reports some blood in her urine since last October were her PCP referred to urologist at [facility] but has a busy schedule so his been seen on her every mo nths. She saw me twice, second time he ordered a scan of the abdomen with results came back as below. She denies any respiratory symptoms. No dyspnea or chest pain or coughing. No chest pain. No headache or weakness or numbness. Also patient complaining of from constipation because of its painful for her to have a bowel movement No history of smoking, alcohol or illicit drugs Patient was unaware she had been diagnosed with Covid and she has no respiratory symptoms Franco catheter placed in the emergency room. It is yellow urine, no gross hematuria. Pending full urine analysis. Vitas looks stable. She has mild leukocytosis at 15 K Creatinine elevated from baseline 1.7 up to 2.0. Calcium 10.9 which is mildly elevated. Glucose 156 also elevated. Liver enzymes are not significantly e levated covid test came back positive She has CT of the abdomen and pelvis with and without contrast done on 05/31/2021 about 10 days ago showing: Retroperitoneal lymphadenopathy along with paraAortic region. With possible necrotic center transformation. Colonic diverticulosis without diverticulitis. Infraumbilical hernia in the midline abdominal wall with soft tissue density measuring 1.7 x 1.7 cm inside the hernia sac. No hydronephrosis, no renal mass. Urinary bladder wall thickening suspicious for cystitis versus malignant involvement. There is a large uterine fundal hypodense mass measuring 6.8 x 6.4 cm likely fibroid however malignancy not excluded. Chest x-ray no acute process In the emergency room she received 1 dose of Rocephin, Toradol, morphine, normal saline and Tylenol. Nephrology, urology and surgery team were consulted 06/11/2021 Patient is currently sitting in the chair. Complains of lower abdominal pain. Patient has been afebrile. Denied any chest pain or shortness breath. CT of abdomen pelvis showed extensive peritoneal and pelvic adenopathy with interval d evelopment of bilateral mild to moderate hydroureteronephrosis likely on the basis of distal ureteral obstruction secondary to adenopathy. Urine culture showed gram-negative bacilli. Patient is being current antibiotics in the form of ceftriaxone. Follow-up final culture report. Patient was also found to have enlarged uterus with fibroids and malignancy cannot be excluded. [employer] service was consulted as well. Laboratory data showed WBC 16.6 hemoglobin 11.6 and platelets 393 BUN 41 and creatinine 1.95 calcium 10.6 AST 49 ALT 19 and alk phos 258 procalcitonin level is 1.30 Coronavirus PCR detected. 06/12/2021 Patient is currently sitting in the chair. Awake alert and oriented x3. Patient was started on IV Dilaudid. Pain seems to be improving today. Denies any chest pain or shortness breath. Neurology recommends further work-up including biopsy of the bladder once urinary tract infection clears up. Urine culture showed E. coli and pansensitive. Continue with ceftriaxone. Patient was seen by [facility]CH[employer] service and recommend outpatient follow-up for Pap smear and suspected benign fibroid uterus. Patient has been afebrile. No nausea vomiting. No diarrhea. Laboratory test showed slightly improved WBC count of 15.3 hemoglobin 11.7 and platelets 372 BUN 38 and creatinine 1.8 Patient is being continued on IV hydration. Currently bicarb drip. Patient is also on multivitamins and heparin subcu. No interval dexamethasone patient is saturating well room air. 12-21 Patient is currently complaining of lower abdominal pain and flank pain which is worsened compared to yesterday. Urology is planning for cystoscopy and possible stent placement. Patient is being converted on Franco catheter. Patient has been afebrile. Continued on antibiotics in the form of ceftriaxone for E. coli urinary tract infection. Oncology evaluated the patient and ordered whole-body bone scan. Laboratory data showed the Holli 15.6 hemoglobin 12 and platelets 281 pressure 5.4 and creatinine 1.7. Gen. surgery urology and oncology is on board. Patient has been afebrile. Awake alert but drowsy and lethargic. No complaints of chest pain or shortness breath. 06/14/2021 Patient is complaining of severe pain in the abdomen. Patient was started on Dilaudid and continue with [place] when necessary. patient is status post cystoscopy, bladder tumor resection, right stent placement. Patient is having urine output and no hematuria. Oncology has seen the patient bone scan was ordered and chest CT. Bone scan showed nonspecific uptake involving the vertebral column likely degenerative. CT chest showed basilar atelectasis. No obvious mass or pulmonary nodule. Laboratory data showed LV 17.7 hemoglobin 11.2 and platelets 384 BUN 35 and creatinine 1.84 and calcium level is 11.0, AST 40 and alk phos 247 and AST 28 albumin 2.9. Urology, nephrology and oncology is on board. 06/15/2021 Patient is lying in the bed. Lethargic and drowsy. Complains of lower abdominal pain. Patient is status post transurethral resection of bladder tumor and right-sided stent placement. Urine output is clear now. Patient has been afebrile. No leukocytosis. Laboratory showed WBC count trending up to 27.7, hemoglobin 11.8 and platelets 401 BUN 35 and creatinine 1.96 and calcium 11.4. Patient is being current on antibiotics in the form of ceftriaxone for your E. coli urinary tract infection. Patient is being continued pain management with Dilaudid 1 mg every 4 hourly as needed. Oncology and nephrology is on board. 06/16/2021 Patient is lethargic and drowsy. Barely arousable with verbal stimuli. Still complains of pain and is continued on Dilaudid 1 mg every 4 hourly. Patient does have good urine output. No blood noted. Patient is being current on ceftriaxone for urinary tract infection. Patient has been having worsening leukocytosis. ID service will be consulted. Abdominal x-ray was ordered showed nonspecific bowel gas pattern. Appropriate radiographic position of right ureteral stent. Ultrasound of the bladder showed no change in hydronephrosis compared to prior. Laboratory showed WBC 32.2 hemoglobin 12.0 and platelets 436 BUN 45 and creatinine 1.85 and calcium level improved to 10.9 Nephrology, oncology and urology is on board. 06/17/2021 Patient is currently lying in the bed. Awake but not oriented. Patient's is at bedside. Patient is moaning in pain. Currently being continued on Dilaudid every 4 hourly. Continued on IV hydration. Patient is not tolerat ing oral diet.IV antibiotics changed to cefepime due to her worsening leukocytosis. Bladder biopsy report is pending. No hematuria noted in the Franco catheter. Urology, oncology and ID is on board. Prognosis is poor at this time. Current medications reviewed.. Objective - Vital Signs Vital signs: Vital Signs Temp 99.1 F 06/17/21 14:00 Pulse 96 06/17/21 14:00 Resp 20 06/17/21 14:00 BP 180/88 06/17/21 14:00 Pulse Ox 94 L 06/17/21 14:00 Intake & Output 06/17/21 06/17/21 06/18/21 06:59 18:59 06:59 Intake Total 10 Output Total 1200 600 Balance -1200 -590 Weight 113.398 kg Intake: Oral 10 Output: Urine 1200 600 Other: Voiding Method Indwelling Catheter Indwelling Catheter # Bowel Movements 0 1 - Exam GENERAL: The patient is alert drowsy and lethargic, not in any acute distress. Well developed, well nourished. HEENT: Pupils are round and equally reacting to light. EOMI. No scleral icterus. No conjunctival pallor. Normocephalic, atraumatic. No pharyngeal erythema. No thyromegaly. CARDIOVASCULAR: S1 and S2 present. No murmurs, rubs, or gallops. PULMONARY: Chest is clear to auscultation, no wheezing or crackles. -ABDOMEN: Soft, mild suprapubic abdominal tenderness, nondistended, normoactive bowel sounds. No palpable organomegaly. MUSCULOSKELETAL: No joint swelling or deformity. EXTREMITIES: No cyanosis, clubbing, or pedal edema. NEUROLOGICAL: Gross neurological examination did not reveal any focal deficits. SKIN: No rashes. No petechiae - Labs CBC & Chem 7: 06/18/21 06:50 06/17/21 05:28 Labs: Abnormal Lab Results - Last 24 Hours (Table) 06/17/21 06/17/21 06/17/21 Range/Units 05:28 05:28 05:28 WBC 38.95 H (4.50-10.00) X 10*3/uL Hgb 11.9 L (12.0-15.0) g/dL MCH 24.9 L (27.0-32.0) pg MCHC 28.6 L (32.0-37.0) g/dL RDW 18.4 H (11.5-14.5) % Plt Count 461 H (140-440) X 10*3/uL Plt Count Comment INCREASED A Absolute Nucleated RBC 0.34 H (0.00-0.00) X 10*3/uL Immature Gran # 1.61 H (0.00-0.04) X 10*3/uL Neutrophils # 34.91 H (1.80-7.70) X 10*3/uL Monocytes # 1.23 H (0.20-1.00) X 10*3/uL Eosinophils # 0 L (0.04-0.35) X 10*3/uL Basophils # 0.14 H (0.00-0.10) X 10*3/uL NRBC/100 WBC Diff 0.9 H (0.0-0.0) /100 WBCS Sodium 148 H (135-145) mmol/L Anion Gap 18.50 H (10.00-18.00) mmol/L BUN 43.5 H (9.0-27.0) mg/dL Creatinine 1.9 H (0.6-1.5) mg/dL Est GFR (CKD-EPI)AfAm 30.9 L (60.0-200.0) Est GFR (CKD-EPI)NonAf 26.6 L (60.0-200.0) BUN/Creatinine Ratio 22.89 H (12.00-20.00) Ratio Glucose 146 H (70-110) mg/dL POC Glucose (mg/dL) (75-99) mg/dL Calcium 10.8 H (8.7-10.3) mg/dL AST 43 H (13-35) U/L Alkaline Phosphatase 203 H (41-126) U/L C-Reactive Protein 4.60 H (0.00-0.80) mg/dL Albumin 3.1 L (3.8-4.9) g/dL Globulin 3.9 H (1.6-3.3) g/dL Albumin/Globulin Ratio 0.79 L (1.60-3.17) g/dL Procalcitonin 0.74 H (0.02-0.09) ng/mL 06/17/21 06/17/21 06/17/21 Range/Units 07:04 11:43 16:28 WBC (4.50-10.00) X 10*3/uL Hgb (12.0-15.0) g/dL MCH (27.0-32.0) pg MCHC (32.0-37.0) g/dL RDW (11.5-14.5) % Plt Count (140-440) X 10*3/uL Plt Count Comment Absolute Nucleated RBC (0.00-0.00) X 10*3/uL Immature Gran # (0.00-0.04) X 10*3/uL Neutrophils # (1.80-7.70) X 10*3/uL Monocytes # (0.20-1.00) X 10*3/uL Eosinophils # (0.04-0.35) X 10*3/uL Basophils # (0.00-0.10) X 10*3/uL NRBC/100 WBC Diff (0.0-0.0) /100 WBCS Sodium (135-145) mmol/L Anion Gap (10.00-18.00) mmol/L BUN (9.0-27.0) mg/dL Creatinine (0.6-1.5) mg/dL Est GFR (CKD-EPI)AfAm (60.0-200.0) Est GFR (CKD-EPI)NonAf (60.0-200.0) BUN/Creatinine Ratio (12.00-20.00) Ratio Glucose (70-110) mg/dL POC Glucose (mg/dL) 144 H 140 H 158 H (75-99) mg/dL Calcium (8.7-10.3) mg/dL AST (13-35) U/L Alkaline Phosphatase (41-126) U/L C-Reactive Protein (0.00-0.80) mg/dL Albumin (3.8-4.9) g/dL Globulin (1.6-3.3) g/dL Albumin/Globulin Ratio (1.60-3.17) g/dL Procalcitonin (0.02-0.09) ng/mL 06/17/21 Range/Units 20:49 WBC (4.50-10.00) X 10*3/uL Hgb (12.0-15.0) g/dL MCH (27.0-32.0) pg MCHC (32.0-37.0) g/dL RDW (11.5-14.5) % Plt Count (140-440) X 10*3/uL Plt Count Comment Absolute Nucleated RBC (0.00-0.00) X 10*3/uL Immature Gran # (0.00-0.04) X 10*3/uL Neutrophils # (1.80-7.70) X 10*3/uL Monocytes # (0.20-1.00) X 10*3/uL Eosinophils # (0.04-0.35) X 10*3/uL Basophils # (0.00-0.10) X 10*3/uL NRBC/100 WBC Diff (0.0-0.0) /100 WBCS Sodium (135-145) mmol/L Anion Gap (10.00-18.00) mmol/L BUN (9.0-27.0) mg/dL Creatinine (0.6-1.5) mg/dL Est GFR (CKD-EPI)AfAm (60.0-200.0) Est GFR (CKD-EPI)NonAf (60.0-200.0) BUN/Creatinine Ratio (12.00-20.00) Ratio Glucose (70-110) mg/dL POC Glucose (mg/dL) 198 H (75-99) mg/dL Calcium (8.7-10.3) mg/dL AST (13-35) U/L Alkaline Phosphatase (41-126) U/L C-Reactive Protein (0.00-0.80) mg/dL Albumin (3.8-4.9) g/dL Globulin (1.6-3.3) g/dL Albumin/Globulin Ratio (1.60-3.17) g/dL Procalcitonin (0.02-0.09) ng/mL Microbiology - Last 24 Hours (Table) 06/16/21 17:17 Blood Culture - Preliminary Blood No Growth after 24 hours 06/16/21 19:33 Urine Culture - Final Urine,Voided Assessment and Plan Assessment: Thickened wall urinary highly suspicious for malignancy.. Associated with recent history of hematuria, associated with Worsening Abdominal pain. status post cystoscopy and bladder tumor resection, biopsy, stent on 06/13/2021. acute kidney injury due to obstructive uropathy. hypercalcemia due to malignancy. Patient was given a dose of pamidronate. Metabolic acidosis Acute UTI with E.coli Worsening leukocytosis. Hypodense uterine mass suspicious for fibroids. Malignancy not excluded Enlarging Retroperitoneal lymphadenopathy necrotic center transformation. Rule out malignancy versus others Infraumbilical hernia with soft tissue density 1.7 x 1.7 cm suspicious to be lymph nodes. Acute Covid infection with no hypoxia, no pneumonia Suspected chronic kidney disease, unknown stage Diabetes mellitus 2 Hypertension Hyperlipidemia History of osteoarthritis Hypothyroidism Obesity with BMI 44.3 Plan: This is a pleasant 70 years old female presents with lower abdominal pain, cystitis versus tumor with difficulty of urination and acute kidney injury Patient is being continued on IV hydration and antibiotics in the form of ceftriaxone for E. coli urinary tract infection. Changed to cefepime. Patient was given a dose of pamidronate due to hypercalcemia. Nephrology is following. Patient is being followed by urology and [employer] has seen the patient. Status post cystoscopy with stent placement and biopsy.. Labs and medication were reviewed..Monitor lytes and vitals. DVT and GI prophylaxis. DVT prophylaxis: Subcutaneous heparin GI Prophylaxis: Pepcid Prognosis is . Time with Patient: Greater than 30
[2021-06-18 11:47] LABS: Glucose,Whole Blood 188 mg/dL (75-99)
[2021-06-18 11:50] LABS: Magnesium 2.3 mg/dL (1.5-2.4)
[2021-06-18 11:56] LABS: Albumin/Globulin Ratio 0.78 (1.60-3.17); Anion Gap 19.3 mmol/L (10.00-18.00); BUN/Creat Ratio 21.55 Ratio (12.00-20.00); Blood Urea Nitrogen 48.7 mg/dL (9.0-27.0); Calcium 10.6 mg/dL (8.7-10.3); Carbon Dioxide 21.6 mmol/L (20.0-27.5); Globulin 3.8 g/dL (1.6-3.3); Non-African American GFR(CKD) 21.6 (60.0-200.0); Potassium 4.4 mmol/L (3.5-5.5); Total Bilirubin 0.4 mg/dL (0.30-1.20); Total Protein 6.8 g/dL (6.2-8.2)
[2021-06-18] MEDS: SODIUM BICARBONATE TAB 650 MG TAB PO SCH ×2 (11:56→20:31)
[2021-06-18] MEDS: amLODIPine 5 MG TAB PO SCH (11:56)
[2021-06-18] MEDS: ZINC SULFATE 220 MG CAP PO SCH (11:56)
[2021-06-18] MEDS: ASCORBIC ACID 500 MG TAB PO SCH (11:56)
[2021-06-18] MEDS ORDERED: SCOPOLAMINE 1.5MG/72HR PATCH TRANSDERM SCH (13:00)
[2021-06-18] MEDS ORDERED: ARTIFICIAL TEARS-HYPROMELLOSE DROPS 15 ML BTL BOTH EYES PRN (15:24)
[2021-06-18] MEDS ORDERED: HALOPERIDOL LACTATE 5 MG/ML 1 ML VIAL IM PRN (15:24)
[2021-06-18] MEDS ORDERED: DRY MOUTH SPRAY 44.3 SPRAY/44.3 ML SPRAY MUCOUS MEM PRN (15:24)
[2021-06-18] MEDS ORDERED: ACETAMINOPHEN SUPPOSITORY 650 MG SUPP RECTAL PRN (15:24)
--- NOTE | 2021-06-18 16:25 | P.PN ---
Subjective Progress Note Date: 06/18/21 Principal diagnosis: mass in bladder Was notified by nursing today regarding agonal breathing and concern of nearing end of life. Patient VSS, at bedside. We re-discussed goals of care, will continue all aggressive measures without reversal of medications, intubation, cardioversion, or chest compression. Permission for cardiology IV medication is ok. Pathology has resulted with high grade urothelial carcinoma although with the rapid pace of her renal function decline and overall performance chemotherapy treatment maybe very high risk with limited benefit. Objective - Vital Signs Vital signs: Vital Signs Temp 99.5 F 06/18/21 14:00 Pulse 125 H 06/18/21 14:00 Resp 26 H 06/18/21 14:00 BP 172/81 06/18/21 14:00 Pulse Ox 91 L 06/18/21 14:00 Intake & Output 06/17/21 06/18/21 06/18/21 18:59 06:59 18:59 Intake Total 10 Output Total 600 900 Balance -590 -900 Weight 113.398 kg Intake: Oral 10 Output: Urine 600 900 Other: Voiding Method Indwelling Catheter Indwelling Catheter Indwelling Catheter # Bowel Movements 1 - Exam Sleeping Still in pain Lethargic and moaning when awake Lungs: Diminished Heart RR Abdomen: tender Ext: edema - Labs CBC & Chem 7: 06/18/21 06:50 06/18/21 06:50 Labs: Abnormal Lab Results - Last 24 Hours (Table) 06/17/21 06/17/21 06/18/21 Range/Units 16:28 20:49 06:50 WBC (4.50-10.00) X 10*3/uL MCH (27.0-32.0) pg MCHC (32.0-37.0) g/dL RDW (11.5-14.5) % Plt Count (140-440) X 10*3/uL Plt Count Comment Absolute Nucleated RBC (0.00-0.00) X 10*3/uL Metamyelocytes % (0-0) % Neutrophils # (Manual) (2.00-8.90) X 10*3/uL Monocytes # (Manual) (0.20-1.00) X 10*3/uL Eosinophils # (Manual) (0.04-0.35) X 10*3/uL NRBC/100 WBC Diff (0.0-0.0) /100 WBCS Sodium 149 H (135-145) mmol/L Anion Gap 19.30 H (10.00-18.00) mmol/L BUN 48.7 H (9.0-27.0) mg/dL Creatinine 2.3 H (0.6-1.5) mg/dL Est GFR (CKD-EPI)AfAm 25.0 L (60.0-200.0) Est GFR (CKD-EPI)NonAf 21.6 L (60.0-200.0) BUN/Creatinine Ratio 21.55 H (12.00-20.00) Ratio Glucose 223 H (70-110) mg/dL POC Glucose (mg/dL) 158 H 198 H (75-99) mg/dL Calcium 10.6 H (8.7-10.3) mg/dL AST 44 H (13-35) U/L Alkaline Phosphatase 191 H (41-126) U/L Albumin 3.0 L (3.8-4.9) g/dL Globulin 3.8 H (1.6-3.3) g/dL Albumin/Globulin Ratio 0.78 L (1.60-3.17) g/dL 06/18/21 06/18/21 06/18/21 Range/Units 06:50 07:15 11:46 WBC 35.00 H (4.50-10.00) X 10*3/uL MCH 25.4 L (27.0-32.0) pg MCHC 28.8 L (32.0-37.0) g/dL RDW 18.8 H (11.5-14.5) % Plt Count 472 H (140-440) X 10*3/uL Plt Count Comment INCREASED A Absolute Nucleated RBC 0.76 H (0.00-0.00) X 10*3/uL Metamyelocytes % 1 H (0-0) % Neutrophils # (Manual) 32.55 H (2.00-8.90) X 10*3/uL Monocytes # (Manual) 1.05 H (0.20-1.00) X 10*3/uL Eosinophils # (Manual) 0 L (0.04-0.35) X 10*3/uL NRBC/100 WBC Diff 2.2 H (0.0-0.0) /100 WBCS Sodium (135-145) mmol/L Anion Gap (10.00-18.00) mmol/L BUN (9.0-27.0) mg/dL Creatinine (0.6-1.5) mg/dL Est GFR (CKD-EPI)AfAm (60.0-200.0) Est GFR (CKD-EPI)NonAf (60.0-200.0) BUN/Creatinine Ratio (12.00-20.00) Ratio Glucose (70-110) mg/dL POC Glucose (mg/dL) 231 H 188 H (75-99) mg/dL Calcium (8.7-10.3) mg/dL AST (13-35) U/L Alkaline Phosphatase (41-126) U/L Albumin (3.8-4.9) g/dL Globulin (1.6-3.3) g/dL Albumin/Globulin Ratio (1.60-3.17) g/dL Microbiology - Last 24 Hours (Table) 06/16/21 17:17 Blood Culture - Preliminary Blood No Growth after 24 hours 06/16/21 19:33 Urine Culture - Final Urine,Voided Assessment and Plan (1) Abdominal lymphadenopathy Current Visit: Yes Status: Acute Code(s): R59.0 - LOCALIZED ENLARGED LYMPH NODES SNOMED Code(s): 569204562 (2) UTI (urinary tract infection) Current Visit: Yes Status: Acute Code(s): N39.0 - URINARY TRACT INFECTION, SITE NOT SPECIFIED SNOMED Code(s): 21882826 (3) Hypercalcemia Current Visit: Yes Status: Acute Code(s): E83.52 - HYPERCALCEMIA SNOMED Code(s): 02378656 Plan: Await Urology for diagnosis.After a pathology has resulted further recommendation can be made. Discussed with Primary team Patient is in a lot of pain when evaluated, added bowel regimen, attempted to add long acting however our system would not allow until she reached a week on short acting which including her home pain regimen has. CT chest without and bone scan is negative for metastatic disease Dexamethasone also added for attempt to gain control of malignant related refractory pain Long discussion patient's , we discussed wishes related to extensive life saving measures and goals of care and he would like to continue measures until a clear picture of what we are facing Fentanyl patch to replace MS Contin as not able to take PO with her current distress while awake Dilaudid PRN Repeat infectious work-up and abdominal imaging +UTI - Urinary bladder ultrasound for potentially relating to her increasing pain - Bilateral hydronbephrosis is noted and this appears to be same as prior. Urology is following, creatinine does not appear improving. ?remaining obstructive High grade Urothelia Carcinoma in picture of worsening renal function and performance Goals of care discussed with Patient is made a partial no CPR - ok for IV meds only
[2021-06-18] MEDS: ATROPINE OPHTH SOLN 1% 5ML BTL SUBLINGUAL PRN ×2 (16:58→22:49)
[2021-06-18 17:00] LABS: Glucose,Whole Blood 209 mg/dL (75-99)
[2021-06-18] MEDS: DEXTROSE 5% IN WATER 1,000 ML IV SCH (17:22)
[2021-06-18] MEDS: MORPHINE SULFATE 4 MG/ML SYRINGE IVP PRN ×3 (17:30→20:42)
[2021-06-18] MEDS: GLYCOPYRROLATE 0.2 MG/ML 2 ML VIAL IVP PRN (18:25)
[2021-06-18 20:28] LABS: Glucose,Whole Blood 233 mg/dL (75-99)
--- NOTE | 2021-06-18 22:40 | PN ---
PROGRESS NOTE DATE OF SERVICE: 06/18/2021 REASON FOR FOLLOWUP: UTI and leukocytosis. INTERVAL HISTORY: The patient did spike a fever this evening of 101 degrees Fahrenheit. The patient has had worsening of his respiratory status, requiring partial non-rebreather. The patient is hemodynamically stable, not on any pressor support. No vomiting or diarrhea has been reported by the nursing staff. The patient herself was unable to provide any history. PHYSICAL EXAMINATION: Blood pressure 134/80 with a pulse of 129, temperature 101.6. She is 92% on a partial non-rebreather. General description is an elderly female lying in bed in no distress. Respiratory system: Unlabored breathing, coarse breath sounds bilaterally. No wheeze. Heart S1, S2. Regular rate and rhythm. Abdomen soft, no tenderness. LABS: Hemoglobin is 12.1, white count 35,000. Creatinine is 2.3. DIAGNOSTIC IMPRESSION AND PLAN: Patient with leukocytosis which is multifactorial, now with a component of fever, concerning for possible aspiration pneumonitis. Patient is covered with cefepime. With a possible nosocomial process and PENICILLIN ALLERGY, we will switch her antibiotic therapy to meropenem. Blood cultures will be repeated. Overall prognosis remains guarded. Continue with supportive care. MMODL / IJN: [id number] /
[2021-06-18] MEDS ORDERED: MEROPENEM 1 GM in SODIUM CHLORIDE 0.9% 100 ML IVPB SCH (23:00)
[2021-06-19] MEDS: DEXTROSE 5% IN WATER 1,000 ML IV SCH (03:26)
[2021-06-19] MEDS: MORPHINE SULFATE 4 MG/ML SYRINGE IVP PRN ×2 (04:46→08:09)
[2021-06-19] MEDS: GLYCOPYRROLATE 0.2 MG/ML 2 ML VIAL IVP PRN (06:06)
[2021-06-19] MEDS: ATROPINE OPHTH SOLN 1% 5ML BTL SUBLINGUAL PRN ×2 (06:07→08:10)
[2021-06-19 06:33] VITALS: BP 95/62
[2021-06-19 07:26] LABS: Glucose,Whole Blood 234 mg/dL (75-99)
[2021-06-19 07:40] VITALS: PULSE 135; RESP 55; TEMP 101.2
[2021-06-19] MEDS: LORazepam 2 MG/ML INJ IV PRN (08:10)
[2021-06-19] MEDS: INSULIN ASPART (NovoLOG) 100 UNIT/ML VIAL SQ SCH (08:10)
[2021-06-19] MEDS ORDERED: FAT EMULSION 20% 500 ML in EMPTY BAG 1 BAG IV SCH (09:00)
[2021-06-19 10:49] LABS: African American GFR (CKD) 19.2 (60.0-200.0); Albumin 2.7 g/dL (3.8-4.9); Albumin/Globulin Ratio 0.75 (1.60-3.17); Anion Gap 15.1 mmol/L (10.00-18.00); BUN/Creat Ratio 22.81 Ratio (12.00-20.00); Blood Urea Nitrogen 64.1 mg/dL (9.0-27.0); Calcium 10.2 mg/dL (8.7-10.3); Carbon Dioxide 25.5 mmol/L (20.0-27.5); Globulin 3.6 g/dL (1.6-3.3); Magnesium 2.4 mg/dL (1.5-2.4); Non-African American GFR(CKD) 16.6 (60.0-200.0); Potassium 4.5 mmol/L (3.5-5.5); Total Bilirubin 0.5 mg/dL (0.30-1.20); Total Protein 6.3 g/dL (6.2-8.2)
--- NOTE | 2021-06-19 11:37 | P.PN ---
Subjective Patient is seen in follow-up for acute kidney injury. Renal function worsening. Sodium level 147. She underwent right-sided ureteral stent placement for the hydronephrosis is admission. Pathology came back positive for invasive bladder cancer. Patient is resting in bed. Not tolerating oral intake. Not a reliable historian. present at bedside. Nonoliguric. Vital signs are stable. HEENT: Head exam is unremarkable. 15 L nonrebreather. LUNGS: Breath sounds decreased. HEART: Tachycardic. ABDOMEN: Soft, no distention. EXTREMITITES: No edema. Objective - Vital Signs Vital signs: Vital Signs Temp 101.2 F H 06/19/21 07:31 Pulse 135 H 06/19/21 07:31 Resp 55 H 06/19/21 07:31 BP 95/62 06/19/21 06:00 Pulse Ox 93 L 06/19/21 07:31 Intake & Output 06/18/21 06/19/21 06/19/21 18:59 06:59 18:59 Output Total 900 Balance -900 Output: Urine 900 Other: Voiding Method Indwelling Catheter Indwelling Catheter Indwelling Catheter - Labs CBC & Chem 7: 06/18/21 06:50 06/19/21 06:29 Labs: Abnormal Lab Results - Last 24 Hours (Table) 06/18/21 06/18/21 06/18/21 Range/Units 06:50 11:46 16:57 Sodium 149 H (135-145) mmol/L Anion Gap 19.30 H (10.00-18.00) mmol/L BUN 48.7 H (9.0-27.0) mg/dL Creatinine 2.3 H (0.6-1.5) mg/dL Est GFR (CKD-EPI)AfAm 25.0 L (60.0-200.0) Est GFR (CKD-EPI)NonAf 21.6 L (60.0-200.0) BUN/Creatinine Ratio 21.55 H (12.00-20.00) Ratio Glucose 223 H (70-110) mg/dL POC Glucose (mg/dL) 188 H 209 H (75-99) mg/dL Calcium 10.6 H (8.7-10.3) mg/dL AST 44 H (13-35) U/L Alkaline Phosphatase 191 H (41-126) U/L C-Reactive Protein (<1.0) mg/dL Albumin 3.0 L (3.8-4.9) g/dL Globulin 3.8 H (1.6-3.3) g/dL Albumin/Globulin Ratio 0.78 L (1.60-3.17) g/dL Procalcitonin (0.02-0.09) ng/mL 06/18/21 06/18/21 06/18/21 Range/Units 17:53 20:26 22:38 Sodium 146 H (135-145) mmol/L Anion Gap (10.00-18.00) mmol/L BUN (9.0-27.0) mg/dL Creatinine (0.6-1.5) mg/dL Est GFR (CKD-EPI)AfAm (60.0-200.0) Est GFR (CKD-EPI)NonAf (60.0-200.0) BUN/Creatinine Ratio (12.00-20.00) Ratio Glucose (70-110) mg/dL POC Glucose (mg/dL) 233 H (75-99) mg/dL Calcium (8.7-10.3) mg/dL AST (13-35) U/L Alkaline Phosphatase (41-126) U/L C-Reactive Protein 8.8 H (<1.0) mg/dL Albumin (3.8-4.9) g/dL Globulin (1.6-3.3) g/dL Albumin/Globulin Ratio (1.60-3.17) g/dL Procalcitonin (0.02-0.09) ng/mL 06/18/21 06/19/21 06/19/21 Range/Units 22:38 06:29 07:25 Sodium 147 H (135-145) mmol/L Anion Gap (10.00-18.00) mmol/L BUN 64.1 H (9.0-27.0) mg/dL Creatinine 2.8 H (0.6-1.5) mg/dL Est GFR (CKD-EPI)AfAm 19.2 L (60.0-200.0) Est GFR (CKD-EPI)NonAf 16.6 L (60.0-200.0) BUN/Creatinine Ratio 22.81 H (12.00-20.00) Ratio Glucose 264 H (70-110) mg/dL POC Glucose (mg/dL) 234 H (75-99) mg/dL Calcium (8.7-10.3) mg/dL AST 53 H (13-35) U/L Alkaline Phosphatase 160 H (41-126) U/L C-Reactive Protein (<1.0) mg/dL Albumin 2.7 L (3.8-4.9) g/dL Globulin 3.6 H (1.6-3.3) g/dL Albumin/Globulin Ratio 0.75 L (1.60-3.17) g/dL Procalcitonin 1.78 H (0.02-0.09) ng/mL Microbiology - Last 24 Hours (Table) 06/16/21 17:17 Blood Culture - Preliminary Blood No Growth after 48 hours Assessment and Plan Plan: Assessment: 1. Acute kidney injury secondary to obstructive uropathy and hypercalcemia- induced ATN. Also concern for sepsis. Renal function worsening. Creatinine 2.8 today. 2. Hydronephrosis status post right ureteral stent placement this admission. 3. Metabolic acidosis secondary to acute kidney injury. On oral bicarb. 4. Hypercalcemia with suppressed PTH. Vitamin D levels not elevated. No monoclonality noted. Due to underlying malignancy. Better. 5. E. coli UTI. On antibiotics. 6. Hypernatremia from lack of oral water intake. Plan: Case discussed with oncology as well as present at bedside. Due to patient's overall health and comorbidities, she'll not be able to tolerate chemotherapy, chetan with declining renal function. Patient is not a candidate for nephrostomy tube placement. Hospice being considered. Prognosis poor.
--- NOTE | 2021-06-19 13:44 | P.PN ---
Subjective Progress Note Date: 06/19/21 Principal diagnosis: mass in bladder Patient declining rapidly, at bedside. She appears comfortable however with the rapid progression and characteristics of her cancer and failing kidneys would not be a candidate for treatment and at this time after a long discussion with patients they have decided to proceed with hospice care. Objective - Vital Signs Vital signs: Vital Signs Temp 101.2 F H 06/19/21 07:31 Pulse 135 H 06/19/21 07:31 Resp 55 H 06/19/21 07:31 BP 95/62 06/19/21 06:00 Pulse Ox 93 L 06/19/21 07:31 Intake & Output 06/18/21 06/19/21 06/19/21 18:59 06:59 18:59 Output Total 900 Balance -900 Output: Urine 900 Other: Voiding Method Indwelling Catheter Indwelling Catheter Indwelling Catheter - Exam Sleeping Still in pain Lethargic and moaning when awake Lungs: Diminished Heart RR Abdomen: tender Ext: edema - Labs CBC & Chem 7: 06/18/21 06:50 06/19/21 06:29 Labs: Abnormal Lab Results - Last 24 Hours (Table) 06/18/21 06/18/21 06/18/21 Range/Units 16:57 17:53 20:26 Sodium 146 H (137-145) mmol/L BUN (9.0-27.0) mg/dL Creatinine (0.6-1.5) mg/dL Est GFR (CKD-EPI)AfAm (60.0-200.0) Est GFR (CKD-EPI)NonAf (60.0-200.0) BUN/Creatinine Ratio (12.00-20.00) Ratio Glucose (70-110) mg/dL POC Glucose (mg/dL) 209 H 233 H (75-99) mg/dL AST (13-35) U/L Alkaline Phosphatase (41-126) U/L C-Reactive Protein (<1.0) mg/dL Albumin (3.8-4.9) g/dL Globulin (1.6-3.3) g/dL Albumin/Globulin Ratio (1.60-3.17) g/dL Procalcitonin (0.02-0.09) ng/mL 06/18/21 06/18/21 06/19/21 Range/Units 22:38 22:38 06:29 Sodium 147 H (137-145) mmol/L BUN 64.1 H (9.0-27.0) mg/dL Creatinine 2.8 H (0.6-1.5) mg/dL Est GFR (CKD-EPI)AfAm 19.2 L (60.0-200.0) Est GFR (CKD-EPI)NonAf 16.6 L (60.0-200.0) BUN/Creatinine Ratio 22.81 H (12.00-20.00) Ratio Glucose 264 H (70-110) mg/dL POC Glucose (mg/dL) (75-99) mg/dL AST 53 H (13-35) U/L Alkaline Phosphatase 160 H (41-126) U/L C-Reactive Protein 8.8 H (<1.0) mg/dL Albumin 2.7 L (3.8-4.9) g/dL Globulin 3.6 H (1.6-3.3) g/dL Albumin/Globulin Ratio 0.75 L (1.60-3.17) g/dL Procalcitonin 1.78 H (0.02-0.09) ng/mL 06/19/21 Range/Units 07:25 Sodium (137-145) mmol/L BUN (9.0-27.0) mg/dL Creatinine (0.6-1.5) mg/dL Est GFR (CKD-EPI)AfAm (60.0-200.0) Est GFR (CKD-EPI)NonAf (60.0-200.0) BUN/Creatinine Ratio (12.00-20.00) Ratio Glucose (70-110) mg/dL POC Glucose (mg/dL) 234 H (75-99) mg/dL AST (13-35) U/L Alkaline Phosphatase (41-126) U/L C-Reactive Protein (<1.0) mg/dL Albumin (3.8-4.9) g/dL Globulin (1.6-3.3) g/dL Albumin/Globulin Ratio (1.60-3.17) g/dL Procalcitonin (0.02-0.09) ng/mL Microbiology - Last 24 Hours (Table) 06/16/21 17:17 Blood Culture - Preliminary Blood No Growth after 48 hours Assessment and Plan (1) Abdominal lymphadenopathy Status: Acute Code(s): R59.0 - LOCALIZED ENLARGED LYMPH NODES SNOMED Code(s): 235186578 (2) UTI (urinary tract infection) Status: Acute Code(s): N39.0 - URINARY TRACT INFECTION, SITE NOT SPECIFIED SNOMED Code(s): 47879798 (3) Hypercalcemia Status: Acute Code(s): E83.52 - HYPERCALCEMIA SNOMED Code(s): 30241840 Plan: Await Urology for diagnosis.After a pathology has resulted further recommendation can be made. Discussed with Primary team Patient is in a lot of pain when evaluated, added bowel regimen, attempted to add long acting however our system would not allow until she reached a week on short acting which including her home pain regimen has. CT chest without and bone scan is negative for metastatic disease Fentanyl patch iv morphine for comfort High grade Urothelia Carcinoma in picture of worsening renal function and performance Goals of care discussed with in detail on Thursday evening and code status ws changed Today patient has further declined and after a long discussion they have decided to proceed with hospice care Physician Attest: I have completed the full history and physical and agree with above dictation, dictated as a scribe.
--- NOTE | 2021-06-19 16:30 | P.PN ---
Progress Note - Text Progress Note Date: 06/19/21 Pathology has confirmed the diagnosis of urothelial carcinoma. Muscle invasion was not determined, but this is presumed clinically to be the case. Renal function has failed to improve despite placement of a right ureteral stent. There is no additional surgery she would benefit from. I discussed that this morning with the patient and her . She was somewhat obtunded, and he indicated that they had chosen to proceed with Hospice care.
--- NOTE | 2021-06-20 10:51 | P.PN ---
Subjective Progress Note Date: 06/18/21 Principal diagnosis: Underlying malignancy with lymphadenopathy Obstructive uropathy Acute COVID-19 infection This is a pleasant 70 years old female with past medical history of Diabetes Mellitus, Hyperlipidemia, Hypertension, Osteoarthritis, hypothyroidism, history of diverticulosis and diverticulitis. Her PCP is Dr. Tammy Patricia, at [facility] She presents because of abdominal pain and urinary symptoms. She has a pain for more than a month, and Smillie in the lower abdomen again across both sides and associated with some little back pain felt like cramping. Was more severe this morning 02/19 and associated with more difficulty with urination which was ongoing for the last 2 weeks getting worse gradually, today it was harder for her to be. Besides each time she P's her lower abdominal pain become more severe. She reports some blood in her urine since last October were her PCP referred to urologist at [facility] but has a busy schedule so his been seen on her every mo nths. She saw me twice, second time he ordered a scan of the abdomen with results came back as below. She denies any respiratory symptoms. No dyspnea or chest pain or coughing. No chest pain. No headache or weakness or numbness. Also patient complaining of from constipation because of its painful for her to have a bowel movement No history of smoking, alcohol or illicit drugs Patient was unaware she had been diagnosed with Covid and she has no respiratory symptoms Franco catheter placed in the emergency room. It is yellow urine, no gross hematuria. Pending full urine analysis. Vitas looks stable. She has mild leukocytosis at 15 K Creatinine elevated from baseline 1.7 up to 2.0. Calcium 10.9 which is mildly elevated. Glucose 156 also elevated. Liver enzymes are not significantly e levated covid test came back positive She has CT of the abdomen and pelvis with and without contrast done on 05/31/2021 about 10 days ago showing: Retroperitoneal lymphadenopathy along with paraAortic region. With possible necrotic center transformation. Colonic diverticulosis without diverticulitis. Infraumbilical hernia in the midline abdominal wall with soft tissue density measuring 1.7 x 1.7 cm inside the hernia sac. No hydronephrosis, no renal mass. Urinary bladder wall thickening suspicious for cystitis versus malignant involvement. There is a large uterine fundal hypodense mass measuring 6.8 x 6.4 cm likely fibroid however malignancy not excluded. Chest x-ray no acute process In the emergency room she received 1 dose of Rocephin, Toradol, morphine, normal saline and Tylenol. Nephrology, urology and surgery team were consulted 06/11/2021 Patient is currently sitting in the chair. Complains of lower abdominal pain. Patient has been afebrile. Denied any chest pain or shortness breath. CT of abdomen pelvis showed extensive peritoneal and pelvic adenopathy with interval d evelopment of bilateral mild to moderate hydroureteronephrosis likely on the basis of distal ureteral obstruction secondary to adenopathy. Urine culture showed gram-negative bacilli. Patient is being current antibiotics in the form of ceftriaxone. Follow-up final culture report. Patient was also found to have enlarged uterus with fibroids and malignancy cannot be excluded. [facility] [employer] service was consulted as well. Laboratory data showed WBC 16.6 hemoglobin 11.6 and platelets 393 BUN 41 and creatinine 1.95 calcium 10.6 AST 49 ALT 19 and alk phos 258 procalcitonin level is 1.30 Coronavirus PCR detected. 06/12/2021 Patient is currently sitting in the chair. Awake alert and oriented x3. Patient was started on IV Dilaudid. Pain seems to be improving today. Denies any chest pain or shortness breath. Neurology recommends further work-up including biopsy of the bladder once urinary tract infection clears up. Urine culture showed E. coli and pansensitive. Continue with ceftriaxone. Patient was seen by [facility] [employer] service and recommend outpatient follow-up for Pap smear and suspected benign fibroid uterus. Patient has been afebrile. No nausea vomiting. No diarrhea. Laboratory test showed slightly improved WBC count of 15.3 hemoglobin 11.7 and platelets 372 BUN 38 and creatinine 1.8 Patient is being continued on IV hydration. Currently bicarb drip. Patient is also on multivitamins and heparin subcu. No interval dexamethasone patient is saturating well room air. 12-21 Patient is currently complaining of lower abdominal pain and flank pain which is worsened compared to yesterday. Urology is planning for cystoscopy and possible stent placement. Patient is being converted on Franco catheter. Patient has been afebrile. Continued on antibiotics in the form of ceftriaxone for E. coli urinary tract infection. Oncology evaluated the patient and ordered whole-body bone scan. Laboratory data showed the Holli 15.6 hemoglobin 12 and platelets 281 pressure 5.4 and creatinine 1.7. Gen. surgery urology and oncology is on board. Patient has been afebrile. Awake alert but drowsy and lethargic. No complaints of chest pain or shortness breath. 06/14/2021 Patient is complaining of severe pain in the abdomen. Patient was started on Dilaudid and continue with Milo when necessary. patient is status post cystoscopy, bladder tumor resection, right stent placement. Patient is having urine output and no hematuria. Oncology has seen the patient bone scan was ordered and chest CT. Bone scan showed nonspecific uptake involving the vertebral column likely degenerative. CT chest showed basilar atelectasis. No obvious mass or pulmonary nodule. Laboratory data showed LV 17.7 hemoglobin 11.2 and platelets 384 BUN 35 and creatinine 1.84 and calcium level is 11.0, AST 40 and alk phos 247 and AST 28 albumin 2.9. Urology, nephrology and oncology is on board. 06/15/2021 Patient is lying in the bed. Lethargic and drowsy. Complains of lower abdominal pain. Patient is status post transurethral resection of bladder tumor and right-sided stent placement. Urine output is clear now. Patient has been afebrile. No leukocytosis. Laboratory showed WBC count trending up to 27.7, hemoglobin 11.8 and platelets 401 BUN 35 and creatinine 1.96 and calcium 11.4. Patient is being current on antibiotics in the form of ceftriaxone for your E. coli urinary tract infection. Patient is being continued pain management with Dilaudid 1 mg every 4 hourly as needed. Oncology and nephrology is on board. 06/16/2021 Patient is lethargic and drowsy. Barely arousable with verbal stimuli. Still complains of pain and is continued on Dilaudid 1 mg every 4 hourly. Patient does have good urine output. No blood noted. Patient is being current on ceftriaxone for urinary tract infection. Patient has been having worsening leukocytosis. ID service will be consulted. Abdominal x-ray was ordered showed nonspecific bowel gas pattern. Appropriate radiographic position of right ureteral stent. Ultrasound of the bladder showed no change in hydronephrosis compared to prior. Laboratory showed WBC 32.2 hemoglobin 12.0 and platelets 436 BUN 45 and creatinine 1.85 and calcium level improved to 10.9 Nephrology, oncology and urology is on board. 06/17/2021 Patient is currently lying in the bed. Awake but not oriented. Patient's is at bedside. Patient is moaning in pain. Currently being continued on Dilaudid every 4 hourly. Continued on IV hydration. Patient is not tolerat ing oral diet.IV antibiotics changed to cefepime due to her worsening leukocytosis. Bladder biopsy report is pending. No hematuria noted in the Franco catheter. Urology, oncology and ID is on board. Prognosis is poor at this time. 06/18/2021 Patient is lethargic and confused. Pain is better controlled. Patient still moaning with pain and needing end-of-life. Discussed with her at bed side. Wishes not to be intubated or resuscitated with chest compression and cardioversion. Pathology report showed high-grade urothelial carcinoma. Due to rapid decline in renal function and overall performance status patient is high risk with limited benefit for chemotherapy. Patient is being continued on antibiotics and IV hydration and pain management. Current medications reviewed.. Objective - Vital Signs Vital signs: Vital Signs Temp 99.9 F H 06/18/21 08:00 Pulse 117 H 06/18/21 08:00 Resp 25 H 06/18/21 08:00 BP 154/81 06/18/21 08:00 Pulse Ox 93 L 06/18/21 08:00 Intake & Output 06/17/21 06/18/21 06/18/21 18:59 06:59 18:59 Intake Total 10 Output Total 600 900 Balance -590 -900 Weight 113.398 kg Intake: Oral 10 Output: Urine 600 900 Other: Voiding Method Indwelling Catheter Indwelling Catheter # Bowel Movements 1 - Exam GENERAL: The patient is alert drowsy and lethargic, not in any acute distress. Well developed, well nourished. HEENT: Pupils are round and equally reacting to light. EOMI. No scleral icterus. No conjunctival pallor. Normocephalic, atraumatic. No pharyngeal erythema. No thyromegaly. CARDIOVASCULAR: S1 and S2 present. No murmurs, rubs, or gallops. PULMONARY: Chest is clear to auscultation, no wheezing or crackles. -ABDOMEN: Soft, mild suprapubic abdominal tenderness, nondistended, normoactive bowel sounds. No palpable organomegaly. MUSCULOSKELETAL: No joint swelling or deformity. EXTREMITIES: No cyanosis, clubbing, or pedal edema. NEUROLOGICAL: Gross neurological examination did not reveal any focal deficits. SKIN: No rashes. No petechiae - Labs CBC & Chem 7: 06/18/21 06:50 06/19/21 06:29 Labs: Abnormal Lab Results - Last 24 Hours (Table) 06/17/21 06/17/21 06/17/21 Range/Units 11:43 16:28 20:49 WBC (4.50-10.00) X 10*3/uL MCH (27.0-32.0) pg MCHC (32.0-37.0) g/dL RDW (11.5-14.5) % Plt Count (140-440) X 10*3/uL Plt Count Comment Absolute Nucleated RBC (0.00-0.00) X 10*3/uL Metamyelocytes % (0-0) % Neutrophils # (Manual) (2.00-8.90) X 10*3/uL Monocytes # (Manual) (0.20-1.00) X 10*3/uL Eosinophils # (Manual) (0.04-0.35) X 10*3/uL NRBC/100 WBC Diff (0.0-0.0) /100 WBCS POC Glucose (mg/dL) 140 H 158 H 198 H (75-99) mg/dL 06/18/21 06/18/21 Range/Units 06:50 07:15 WBC 35.00 H (4.50-10.00) X 10*3/uL MCH 25.4 L (27.0-32.0) pg MCHC 28.8 L (32.0-37.0) g/dL RDW 18.8 H (11.5-14.5) % Plt Count 472 H (140-440) X 10*3/uL Plt Count Comment INCREASED A Absolute Nucleated RBC 0.76 H (0.00-0.00) X 10*3/uL Metamyelocytes % 1 H (0-0) % Neutrophils # (Manual) 32.55 H (2.00-8.90) X 10*3/uL Monocytes # (Manual) 1.05 H (0.20-1.00) X 10*3/uL Eosinophils # (Manual) 0 L (0.04-0.35) X 10*3/uL NRBC/100 WBC Diff 2.2 H (0.0-0.0) /100 WBCS POC Glucose (mg/dL) 231 H (75-99) mg/dL Microbiology - Last 24 Hours (Table) 06/16/21 17:17 Blood Culture - Preliminary Blood No Growth after 24 hours 06/16/21 19:33 Urine Culture - Final Urine,Voided Assessment and Plan Assessment: High-grade urothelial carcinoma. Thickened wall urinary bladder Associated with recent history of hematuria, associated with Worsening Abdominal pain. status post cystoscopy and bladder tumor resection, biopsy, stent on 06/13/2021. acute kidney injury due to obstructive uropathy. hypercalcemia due to malignancy. Patient was given a dose of pamidronate. Metabolic acidosis Acute UTI with E.coli Worsening leukocytosis. Hypodense uterine mass suspicious for fibroids. Malignancy not excluded Enlarging Retroperitoneal lymphadenopathy necrotic center transformation. Rule out malignancy versus others Infraumbilical hernia with soft tissue density 1.7 x 1.7 cm suspicious to be lymph nodes. Acute Covid infection with no hypoxia, no pneumonia Suspected chronic kidney disease, unknown stage Diabetes mellitus 2 Hypertension Hyperlipidemia History of osteoarthritis Hypothyroidism Obesity with BMI 44.3 Plan: This is a pleasant 70 years old female presents with lower abdominal pain, cystitis versus tumor with difficulty of urination and acute kidney injury Patient is being continued on IV hydration and antibiotics in the form of c eftriaxone for E. coli urinary tract infection. Changed to cefepime. Patient was given a dose of pamidronate due to hypercalcemia. Nephrology is following. Patient is being followed by urology and [facility] [employer] has seen the patient. Status post cystoscopy with stent placement and biopsy.. Labs and medication were reviewed..Monitor lytes and vitals. DVT and GI prophylaxis. DVT prophylaxis: Subcutaneous heparin GI Prophylaxis: Pepcid Prognosis is poor at this time. Time with Patient: Greater than 30
--- NOTE | 2021-06-20 10:55 | P.DS ---
Providers Date of admission: 06/10/21 13:01 Expected date of discharge: 06/19/21 Attending physician: Darren Myles MD Consults: 06/10/21 12:56 Consult Physician Urgent Consulting Provider: Jeffrey Mukherjee Consult Reason/Comments: Urinary retention, hematuria Do you want consulting provider notified?: Already Contacted Consult Physician Urgent Consulting Provider: Sharyn Dey Consult Reason/Comments: MATTY, urinary retention Do you want consulting provider notified?: Yes 06/10/21 14:29 Consult Physician Routine Consulting Provider: Luis Manuel Trotter Consult Reason/Comments: uterine mass Do you want consulting provider notified?: Yes 06/12/21 13:11 Consult Physician Routine Consulting Provider: Franklin Britt Consult Reason/Comments: abdominal CAT scan results, possible Cancer. Do you want consulting provider notified?: Yes 06/16/21 10:53 Consult Physician Routine Consulting Provider: Zuly Whitaker Consult Reason/Comments: Leukocytosis Do you want consulting provider notified?: Yes Primary care physician: Yovana Gamboa DO Hospital Course: High-grade urothelial carcinoma. New Diagnosis. Due to overall clinical status, patient is not a candidate for chemotherapy. Seen by oncology. Thickened wall urinary bladder Associated with recent history of hematuria, associated with Worsening Abdominal pain. status post cystoscopy and bladder tumor resection, biopsy, stent on 06/13/2021. acute kidney injury due to obstructive uropathy. hypercalcemia due to malignancy. Patient was given a dose of pamidronate. Metabolic acidosis Acute UTI with E.coli Worsening leukocytosis. Hypodense uterine mass suspicious for fibroids. Malignancy not excluded Enlarging Retroperitoneal lymphadenopathy necrotic center transformation. Rule out malignancy versus others Infraumbilical hernia with soft tissue density 1.7 x 1.7 cm suspicious to be lymph nodes. Acute Covid infection with no hypoxia, no pneumonia Suspected chronic kidney disease, unknown stage Diabetes mellitus 2 Hypertension Hyperlipidemia History of osteoarthritis Hypothyroidism Obesity with BMI 44.3 Hospital course This is a pleasant 70 years old female with past medical history of Diabetes Imelda litus, Hyperlipidemia, Hypertension, Osteoarthritis, hypothyroidism, history of diverticulosis and diverticulitis. Her PCP is Dr. Tammy Patricia, at [place] She presents because of abdominal pain and urinary symptoms. She has a pain for more than a month, and Smillie in the lower abdomen again across both sides and associated with some little back pain felt like cramping. Was more severe this morning 02/19 and associated with more difficulty with urination which was ongoing for the last 2 weeks getting worse gradually, today it was harder for her to be. Besides each time she P's her lower abdominal pain become more severe. She reports some blood in her urine since last October were her PCP referred to urologist at [place] but has a busy schedule so his been seen on her every months. She saw me twice, second time he ordered a scan of the abdomen with results came back as below. She denies any respiratory symptoms. No dyspnea or chest pain or coughing. No chest pain. No headache or weakness or numbness. Also patient complaining of from constipation because of its painful for her to have a bowel movement No history of smoking, alcohol or illicit drugs Patient was unaware she had been diagnosed with Covid and she has no respiratory symptoms Franco catheter placed in the emergency room. It is yellow urine, no gross hematuria. Pending full urine analysis. Vitas looks stable. She has mild leukocytosis at 15 K Creatinine elevated from baseline 1.7 up to 2.0. Calcium 10.9 which is mildly elevated. Glucose 156 also elevated. Liver enzymes are not significantly elevated covid test came back positive She has CT of the abdomen and pelvis with and without contrast done on 05/31/2021 about 10 days ago showing: Retroperitoneal lymphadenopathy along with paraAortic region. With possible necrotic center transformation. Colonic diverticulosis without diverticulitis. Infraumbilical hernia in the midline abdominal wall with soft tissue density measuring 1.7 x 1.7 cm inside the hernia sac. No hydronephrosis, no renal mass. Urinary bladder wall thickening suspicious for cystitis versus malignant involvement. There is a large uterine fundal hypodense mass measuring 6.8 x 6.4 cm likely fibroid however malignancy not excluded. Chest x-ray no acute process In the emergency room she received 1 dose of Rocephin, Toradol, morphine, normal saline and Tylenol. Nephrology, urology and surgery team were consulted 06/11/2021 Patient is currently sitting in the chair. Complains of lower abdominal pain. Patient has been afebrile. Denied any chest pain or shortness breath. CT of abdomen pelvis showed extensive peritoneal and pelvic adenopathy with interval development of bilateral mild to moderate hydroureteronephrosis likely on the basis of distal ureteral obstruction secondary to adenopathy. Urine culture showed gram-negative bacilli. Patient is being current antibiotics in the form of ceftriaxone. Follow-up final culture report. Patient was also found to have enlarged uterus with fibroids and malignancy cannot be excluded. [employer] service was consulted as well. Laboratory data showed WBC 16.6 hemoglobin 11.6 and platelets 393 BUN 41 and creatinine 1.95 calcium 10.6 AST 49 ALT 19 and alk phos 258 procalcitonin level is 1.30 Coronavirus PCR detected. 06/12/2021 Patient is currently sitting in the chair. Awake alert and oriented x3. Patient was started on IV Dilaudid. Pain seems to be improving today. Denies any chest pain or shortness breath. Neurology recommends further work-up including biopsy of the bladder once urinary tract infection clears up. Urine culture showed E. coli and pansensitive. Continue with ceftriaxone. Patient was seen by [employer] service and recommend outpatient follow-up for Pap smear and suspected benign fibroid uterus. Patient has been afebrile. No nausea vomiting. No diarrhea. Laboratory test showed slightly improved WBC count of 15.3 hemoglobin 11.7 and platelets 372 BUN 38 and creatinine 1.8 Patient is being continued on IV hydration. Currently bicarb drip. Patient is also on multivitamins and heparin subcu. No interval dexamethasone patient is saturating well room air. 12- Patient is currently complaining of lower abdominal pain and flank pain which is worsened compared to yesterday. Urology is planning for cystoscopy and possible stent placement. Patient is being converted on Franco catheter. Patient has been afebrile. Continued on antibiotics in the form of ceftriaxone for E. coli urinary tract infection. Oncology evaluated the patient and ordered whole-body bone scan. Laboratory da ta showed the Holli 15.6 hemoglobin 12 and platelets 281 pressure 5.4 and creatinine 1.7. Gen. surgery urology and oncology is on board. Patient has been afebrile. Awake alert but drowsy and lethargic. No complaints of chest pain or shortness breath. 06/14/2021 Patient is complaining of severe pain in the abdomen. Patient was started on Dilaudid and continue with [place] when necessary. patient is status post cystoscopy, bladder tumor resection, right stent placement. Patient is having urine output and no hematuria. Oncology has seen the patient bone scan was ordered and chest CT. Bone scan showed nonspecific uptake involving the vertebral column likely degenerative. CT chest showed basilar atelectasis. No obvious mass or pulmonary nodule. Laboratory data showed LV 17.7 hemoglobin 11.2 and platelets 384 BUN 35 and creatinine 1.84 and calcium level is 11.0, AST 40 and alk phos 247 and AST 28 albumin 2.9. Urology, nephrology and oncology is on board. 06/15/2021 Patient is lying in the bed. Lethargic and drowsy. Complains of lower abdominal pain. Patient is status post transurethral resection of bladder tumor and right-sided stent placement. Urine output is clear now. Patient has been afebrile. No leukocytosis. Laboratory showed WBC count trending up to 27.7, hemoglobin 11.8 and platelets 401 BUN 35 and creatinine 1.96 and calcium 11.4. Patient is being current on antibiotics in the form of ceftriaxone for your E. coli urinary tract infection. Patient is being continued pain management with Dilaudid 1 mg every 4 hourly as needed. Oncology and nephrology is on board. 06/16/2021 Patient is lethargic and drowsy. Barely arousable with verbal stimuli. Still complains of pain and is continued on Dilaudid 1 mg every 4 hourly. Patient does have good urine output. No blood noted. Patient is being current on ceftriaxone for urinary tract infection. Patient has been having worsening leukocytosis. ID service will be consulted. Abdominal x-ray was ordered showed nonspecific bowel gas pattern. Appropriate radiographic position of right ureteral stent. Ultrasound of the bladder showed no change in hydronephrosis compared to prior. Laboratory showed WBC 32.2 hemoglobin 12.0 and platelets 436 BUN 45 and creatinine 1.85 and calcium level improved to 10.9 Nephrology, oncology and urology is on board. 06/17/2021 Patient is currently lying in the bed. Awake but not oriented. Patient's is at bedside. Patient is moaning in pain. Currently being continued on Dilaudid every 4 hourly. Continued on IV hydration. Patient is not tolerating oral diet.IV antibiotics changed to cefepime due to her worsening leukocytosis. Bladder biopsy report is pending. No hematuria noted in the Franco catheter. Urology, oncology and ID is on board. Prognosis is poor at this time. 06/18/2021 Patient is lethargic and confused. Pain is better controlled. Patient still moaning with pain and needing end-of-life. Discussed with her at bedside. Wishes not to be intubated or resuscitated with chest compression and cardioversion. Pathology report showed high-grade urothelial carcinoma. Due to rapid decline in renal function and overall performance status patient is high risk with limited benefit for chemotherapy. Patient is being continued on antibiotics and IV hydration and pain management. 06/19/2021 Patient is lethargic and drowsy and appended. Pain is better controlled. Continue on IV Dilaudid. Biopsy showed high-grade urothelial carcinoma. Due to worsening renal function and overall clinical condition, discussed with her and is negative for comfort care measures. Hospice care was consulted. Patient be transferred to hospice care. Physical examination GENERAL: The patient is alert drowsy and lethargic, obtunded, not in any acute distress. Well developed, well nourished. HEENT: Pupils are round and equally reacting to light. EOMI. No scleral icterus. No conjunctival pallor. Normocephalic, atraumatic. No pharyngeal erythema. No thyromegaly. CARDIOVASCULAR: S1 and S2 present. No murmurs, rubs, or gallops. PULMONARY: Chest is clear to auscultation, no wheezing or crackles. -ABDOMEN: Soft, mild suprapubic abdominal tenderness, nondistended, normoactive bowel sounds. No palpable organomegaly. MUSCULOSKELETAL: No joint swelling or deformity. EXTREMITIES: No cyanosis, clubbing, or pedal edema. NEUROLOGICAL: Gross neurological examination did not reveal any focal deficits. SKIN: No rashes. No petechiae Vitals reviewed. Patient Condition at Discharge: Poor Plan - Discharge Summary Discharge Rx Participant: Yes New Discharge Prescriptions: No Action Insulin Detemir (Levemir) [Levemir] 50 unit SQ HS NIFEdipine [NIFEdipine ER] 90 mg PO DAILY Rosuvastatin [Crestor] 20 mg PO DAILY lisinopriL [Zestril] 5 mg PO DAILY Triamterene-Hctz 37.5-25Mg [Dyazide 37.5-25 Capsule] 1 cap PO DAILY INSULIN ASPART (NovoLOG) [NovoLOG (formulary)] 10 unit SQ AC-BID Empagliflozin [Jardiance] 10 mg PO DAILY Levothyroxine Sodium [Synthroid] 175 mcg PO DAILY Discharge Medication List Insulin Detemir (Levemir) [Levemir] 50 unit SQ HS 05/13/18 [History] NIFEdipine [NIFEdipine ER] 90 mg PO DAILY 05/13/18 [History] Empagliflozin [Jardiance] 10 mg PO DAILY 06/10/21 [History] INSULIN ASPART (NovoLOG) [NovoLOG (formulary)] 10 unit SQ AC-BID 06/10/21 [History] Levothyroxine Sodium [Synthroid] 175 mcg PO DAILY 06/10/21 [History] Rosuvastatin [Crestor] 20 mg PO DAILY 06/10/21 [History] Triamterene-Hctz 37.5-25Mg [Dyazide 37.5-25 Capsule] 1 cap PO DAILY 06/10/21 [History] lisinopriL [Zestril] 5 mg PO DAILY 06/10/21 [History] Follow up Appointment(s)/Referral(s): Yovana Gamboa DO [Primary Care Provider] - 1-2 days Discharge Disposition: [facility] TO [facility]
[2021-06-23] MEDS ORDERED: MIDAZOLAM 2 MG/2 ML VIAL ONE (16:52)
[2021-06-23] MEDS ORDERED: ONDANSETRON 4 MG/2 ML VIAL ONE (16:52)
[2021-06-23] MEDS ORDERED: .fentaNYL (PF) 50 MCG/ML 2 ML AMP ONE (16:52)
[2021-06-23] MEDS ORDERED: KETAMINE 10 MG/ML 20 ML VIAL ONE (16:52)
[2021-06-23] MEDS ORDERED: PROPOFOL 10 MG/ML 20 ML VIAL IV ONE (16:52)
[2021-06-23] MEDS ORDERED: HYDROmorphone (PF) 1 MG/ML ONE (16:52)
== END 2021-06-19 10:14 | disposition hospice, inpatient (51) | DRG 656 ==
LOC: EC 08:17 → 5NMEDONC 13:01 → 4SSUR 20:53
PROVIDERS: ADMIT Internal Medicine; ATTEND Internal Medicine
PROC: 0TJB8ZZ Inspection of Bladder, Via Natural or Artificial Opening Endoscopic (ICD-10-PCS; 2021-06-13)
PROC: 0T768DZ Dilation of Right Ureter with Intraluminal Device, Via Natural or Artificial Opening Endoscopic (ICD-10-PCS; principal; 2021-06-13 13:50)
PROC: 0TBB8ZX Excision of Bladder, Via Natural or Artificial Opening Endoscopic, Diagnostic (ICD-10-PCS; 2021-06-13 13:50)
PROC: BT1D1ZZ Fluoroscopy of Right Kidney, Ureter and Bladder using Low Osmolar Contrast (ICD-10-PCS; 2021-06-13 13:50)
DX: C67.9 Malignant neoplasm of bladder, unspecified (principal); U07.1 COVID-19; N17.0 Acute kidney failure with tubular necrosis; N13.6 Pyonephrosis; Z68.41 Body mass index [BMI] 40.0-44.9, adult; B37.89 Other sites of candidiasis; E87.0 Hyperosmolality and hypernatremia; E87.2 Acidosis; J98.11 Atelectasis; L03.311 Cellulitis of abdominal wall; B96.20 Unspecified Escherichia coli [E. coli] as the cause of diseases classified elsewhere; D25.9 Leiomyoma of uterus, unspecified; E03.9 Hypothyroidism, unspecified; E11.9 Type 2 diabetes mellitus without complications; E66.9 Obesity, unspecified; E78.5 Hyperlipidemia, unspecified; E83.52 Hypercalcemia; E87.5 Hyperkalemia; I10 Essential (primary) hypertension; K57.30 Diverticulosis of large intestine without perforation or abscess without bleeding; K59.00 Constipation, unspecified; N32.89 Other specified disorders of bladder; R31.0 Gross hematuria; Z51.5 Encounter for palliative care; Z66 Do not resuscitate; Z79.4 Long term (current) use of insulin; Z79.84 Long term (current) use of oral hypoglycemic drugs; Z79.890 Hormone replacement therapy; Z79.899 Other long term (current) drug therapy; Z82.49 Family history of ischemic heart disease and other diseases of the circulatory system; Z83.3 Family history of diabetes mellitus; Z87.440 Personal history of urinary (tract) infections; Z88.2 Allergy status to sulfonamides; Z88.0 Allergy status to penicillin; R59.0 Localized enlarged lymph nodes; Z82.3 Family history of stroke
CPT/HCPCS: 36415; 71045; 71250; 74018; 74176; 74420; 76770; 76856; 78306; 80048; 80053; 81001; 82306; 82652; 83690; 83735; 83970; 84145; 84295; 84439; 84443; 84550; 85025; 85610; 85730; 86140; 86304; 86334; 86335; 87040; 87077; 87086; 87186; 87635; 88307; 93005; 96374; 96375; 99285

== ENCOUNTER 2021-06-19 09:54 | Inpatient (IN) | payer MEDICAID ==
[2021-06-19] MEDS ORDERED: ONDANSETRON 4 MG/2 ML VIAL IVP PRN (09:56)
[2021-06-19] MEDS ORDERED: MORPHINE SULFATE 2 MG/ML SYRINGE IV PRN (09:56)
[2021-06-19] MEDS ORDERED: GLYCOPYRROLATE 0.2 MG/ML 2 ML VIAL IVP PRN (09:56)
[2021-06-19] MEDS ORDERED: LORazepam 2 MG/ML INJ IV PRN (09:56)
[2021-06-19] MEDS ORDERED: ACETAMINOPHEN SUPPOSITORY 650 MG SUPP RECTAL PRN (09:56)
[2021-06-19] MEDS ORDERED: HALOPERIDOL LACTATE 5 MG/ML 1 ML VIAL IM PRN (09:56)
[2021-06-19] MEDS ORDERED: MORPHINE SULFATE (100 MG/2 ML) 100 MG in SODIUM CHLORIDE 0.9% 100 ML IV SCH (10:00)
[2021-06-19] MEDS: HYOSCYAMINE ORAL DROPS 1.875 MG/15 ML BOTTLE PO SCH ×4 (11:43→21:43)
[2021-06-19] MEDS: ATROPINE OPHTH SOLN 1% 5ML BTL SUBLINGUAL PRN (15:38)
[2021-06-20] MEDS: HYOSCYAMINE ORAL DROPS 1.875 MG/15 ML BOTTLE PO SCH ×3 (00:02→09:14)
[2021-06-20 01:12] VITALS: BP 92/61; PULSE 110; TEMP 98.7
[2021-06-20] MEDS: ATROPINE OPHTH SOLN 1% 5ML BTL SUBLINGUAL PRN (09:13)
[2021-06-20 09:30] VITALS: BMI 44.2
--- NOTE | 2021-06-20 10:58 | P.DS ---
Providers Date of admission: 06/19/21 10:17 Expected date of discharge: 06/20/21 Attending physician: Darren Myles MD Primary care physician: Yovana Gamboa DO Hospital Course: diagnosis High-grade urothelial carcinoma Retroperitoneal lymphadenopathy along with paraAortic region. With possible necrotic center transformation. Obstructive uropathy High-grade urothelial carcinoma. New Diagnosis. Due to overall clinical status, patient is not a candidate for chemotherapy. Seen by oncology. Thickened wall urinary bladder Associated with recent history of hematuria, associated with Worsening Abdominal pain. status post cystoscopy and bladder tumor resection, biopsy, stent on 06/13/2021. acute kidney injury due to obstructive uropathy. hypercalcemia due to malignancy. Patient was given a dose of pamidronate. Metabolic acidosis Acute UTI with E.coli Worsening leukocytosis. Hypodense uterine mass suspicious for fibroids. Malignancy not excluded Enlarging Retroperitoneal lymphadenopathy necrotic center transformation. Rule out malignancy versus others Infraumbilical hernia with soft tissue density 1.7 x 1.7 cm suspicious to be lymph nodes. Acute Covid infection with no hypoxia, no pneumonia Suspected chronic kidney disease, unknown stage Diabetes mellitus 2 Hypertension Hyperlipidemia History of osteoarthritis Hypothyroidism Obesity with BMI 44.3 Hospital course This is a pleasant 70 years old female with past medical history of Diabetes Mellitus, Hyperlipidemia, Hypertension, Osteoarthritis, hypothyroidism, history of diverticulosis and diverticulitis. Her PCP is Dr. Tammy Patricia, at [place] She presents because of abdominal pain and urinary symptoms. She has a pain for more than a month, and Smillie in the lower abdomen again across both sides and associated with some little back pain felt like cramping. Was more severe this morning 02/19 and associated with more difficulty with urination which was ongoing for the last 2 weeks getting worse gradually, today it was harder for her to be. Besides each time she P's her lower abdominal pain become more severe. She reports some blood in her urine since last October were her PCP referred to urologist at [place] but has a busy schedule so his been seen on her every months. She saw me twice, second time he ordered a scan of the abdomen with results came back as below. She denies any respiratory symptoms. No dyspnea or chest pain or coughing. No chest pain. No headache or weakness or numbness. Also patient complaining of from constipation because of its painful for her to have a bowel movement No history of smoking, alcohol or illicit drugs Patient was unaware she had been diagnosed with Covid and she has no respiratory symptoms Franco catheter placed in the emergency room. It is yellow urine, no gross hematuria. Pending full urine analysis. Vitas looks stable. She has mild leukocytosis at 15 K Creatinine elevated from baseline 1.7 up to 2.0. Calcium 10.9 which is mildly elevated. Glucose 156 also elevated. Liver enzymes are not significantly elevated covid test came back positive She has CT of the abdomen and pelvis with and without contrast done on 05/31/2021 about 10 days ago showing: Retroperitoneal lymphadenopathy along with paraAortic region. With possible necrotic center transformation. Colonic diverticulosis without diverticulitis. Infraumbilical hernia in the midline abdominal wall with soft tissue density measuring 1.7 x 1.7 cm inside the hernia sac. No hydronephrosis, no renal mass. Urinary bladder wall thickening suspicious for cystitis versus malignant involvement. There is a large uterine fundal hypodense mass measuring 6.8 x 6.4 cm likely fibroid however malignancy not excluded. Chest x-ray no acute process In the emergency room she received 1 dose of Rocephin, Toradol, morphine, normal saline and Tylenol. Nephrology, urology and surgery team were consulted 06/11/2021 Patient is currently sitting in the chair. Complains of lower abdominal pain. Patient has been afebrile. Denied any chest pain or shortness breath. CT of abdomen pelvis showed extensive peritoneal and pelvic adenopathy with interval development of bilateral mild to moderate hydroureteronephrosis likely on the basis of distal ureteral obstruction secondary to adenopathy. Urine culture showed gram-negative bacilli. Patient is being current antibiotics in the form of ceftriaxone. Follow-up final culture report. Patient was also found to have enlarged uterus with fibroids and malignancy cannot be excluded. [employer] service was consulted as well. Laboratory data showed WBC 16.6 hemoglobin 11.6 and platelets 393 BUN 41 and creatinine 1.95 calcium 10.6 AST 49 ALT 19 and alk phos 258 procalcitonin level is 1.30 Coronavirus PCR detected. 06/12/2021 Patient is currently sitting in the chair. Awake alert and oriented x3. Patient was started on IV Dilaudid. Pain seems to be improving today. Denies any chest pain or shortness breath. Neurology recommends further work-up including biopsy of the bladder once urinary tract infection clears up. Urine culture showed E. coli and pansensitive. Continue with ceftriaxone. Patient was seen by [employer] service and recommend outpatient follow-up for Pap smear and suspected benign fibroid uterus. Patient has been afebrile. No nausea vomiting. No diarrhea. Laboratory test showed slightly improved WBC count of 15.3 hemoglobin 11.7 and platelets 372 BUN 38 and creatinine 1.8 Patient is being continued on IV hydration. Currently bicarb drip. Patient is also on multivitamins and heparin subcu. No interval dexamethasone patient is saturating well room air. 07-02 Patient is currently complaining of lower abdominal pain and flank pain which is worsened compared to yesterday. Urology is planning for cystoscopy and possible stent placement. Patient is being converted on Franco catheter. Patient has been afebrile. Continued on antibiotics in the form of ceftriaxone for E. coli urinary tract infection. Oncology evaluated the patient and ordered whole-body bone scan. Laboratory data showed the Holli 15.6 hemoglobin 12 and platelets 281 pressure 5.4 and creatinine 1.7. Gen. surgery urology and oncology is on board. Patient has been afebrile. Awake alert but drowsy and lethargic. No complaints of chest pain or shortness breath. 06/14/2021 Patient is complaining of severe pain in the abdomen. Patient was started on Dilaudid and continue with [place] when necessary. patient is status post cystoscopy, bladder tumor resection, right stent placement. Patient is having urine output and no hematuria. Oncology has seen the patient bone scan was ordered and chest CT. Bone scan showed nonspecific uptake involving the vertebral column likely degenerative. CT chest showed basilar atelectasis. No obvious mass or pulmonary nodule. Laboratory data showed LV 17.7 hemoglobin 11.2 and platelets 384 BUN 35 and creatinine 1.84 and calcium level is 11.0, AST 40 and alk phos 247 and AST 28 albumin 2.9. Urology, nephrology and oncology is on board. 06/15/2021 Patient is lying in the bed. Lethargic and drowsy. Complains of lower abdominal pain. Patient is status post transurethral resection of bladder tumor and right-sided stent placement. Urine output is clear now. Patient has been afebrile. No leukocytosis. Laboratory showed WBC count trending up to 27.7, hemoglobin 11.8 and platelets 401 BUN 35 and creatinine 1.96 and calcium 11.4. Patient is being current on antibiotics in the form of ceftriaxone for your E. coli urinary tract infection. Patient is being continued pain management with Dilaudid 1 mg every 4 hourly as needed. Oncology and nephrology is on board. 06/16/2021 Patient is lethargic and drowsy. Barely arousable with verbal stimuli. Still complains of pain and is continued on Dilaudid 1 mg every 4 hourly. Patient does have good urine output. No blood noted. Patient is being current on ceftriaxone for urinary tract infection. Patient has been having worsening leukocytosis. ID service will be consulted. Abdominal x-ray was ordered showed nonspecific bowel gas pattern. Appropriate radiographic position of right ureteral stent. Ultrasound of the bladder showed no change in hydronephrosis compared to prior. Laboratory showed WBC 32.2 hemoglobin 12.0 and platelets 436 BUN 45 and creatinine 1.85 and calcium level improved to 10.9 Nephrology, oncology and urology is on board. 06/17/2021 Patient is currently lying in the bed. Awake but not oriented. Patient's is at bedside. Patient is moaning in pain. Currently being continued on Dilaudid every 4 hourly. Continued on IV hydration. Patient is not tolerating oral diet.IV antibiotics changed to cefepime due to her worsening leukocytosis. Bladder biopsy report is pending. No hematuria noted in the Franco catheter. Urology, oncology and ID is on board. Prognosis is poor at this time. 06/18/2021 Patient is lethargic and confused. Pain is better controlled. Patient still moaning with pain and needing end-of-life. Discussed with her at bedside. Wishes not to be intubated or resuscitated with chest compression and cardioversion. Pathology report showed high-grade urothelial carcinoma. Due to rapid decline i n renal function and overall performance status patient is high risk with limited benefit for chemotherapy. Patient is being continued on antibiotics and IV hydration and pain management. 06/19/2021 Patient is lethargic and drowsy and appended. Pain is better controlled. Continue on IV Dilaudid. Biopsy showed high-grade urothelial carcinoma. Due to worsening renal function and overall clinical condition, discussed with her and is negative for comfort care measures. Hospice care was consulted. Patient be transferred to hospice care. Patient on 06/20/2021. Family has been notified. Plan - Discharge Summary New Discharge Prescriptions: No Action Insulin Detemir (Levemir) [Levemir] 50 unit SQ HS NIFEdipine [NIFEdipine ER] 90 mg PO DAILY Rosuvastatin [Crestor] 20 mg PO DAILY lisinopriL [Zestril] 5 mg PO DAILY Triamterene-Hctz 37.5-25Mg [Dyazide 37.5-25 Capsule] 1 cap PO DAILY INSULIN ASPART (NovoLOG) [NovoLOG (formulary)] 10 unit SQ AC-BID Empagliflozin [Jardiance] 10 mg PO DAILY Levothyroxine Sodium [Synthroid] 175 mcg PO DAILY Discharge Medication List Insulin Detemir (Levemir) [Levemir] 50 unit SQ HS 05/13/18 [History] NIFEdipine [NIFEdipine ER] 90 mg PO DAILY 05/13/18 [History] Empagliflozin [Jardiance] 10 mg PO DAILY 06/10/21 [History] INSULIN ASPART (NovoLOG) [NovoLOG (formulary)] 10 unit SQ AC-BID 06/10/21 [History] Levothyroxine Sodium [Synthroid] 175 mcg PO DAILY 06/10/21 [History] Rosuvastatin [Crestor] 20 mg PO DAILY 06/10/21 [History] Triamterene-Hctz 37.5-25Mg [Dyazide 37.5-25 Capsule] 1 cap PO DAILY 06/10/21 [History] lisinopriL [Zestril] 5 mg PO DAILY 06/10/21 [History] - Preliminary Cause of Preliminary Cause of : High-grade urothelial carcinoma
[2021-06-20 12:25] VITALS: RESP 10
== END 2021-06-20 09:37 | disposition expired | DRG 951 ==
LOC: 4SSUR 10:17
PROVIDERS: ADMIT Internal Medicine; ATTEND Internal Medicine
DX: Z51.5 Encounter for palliative care (principal); U07.1 COVID-19; E87.2 Acidosis; J98.11 Atelectasis; N13.6 Pyonephrosis; N17.9 Acute kidney failure, unspecified; C77.2 Secondary and unspecified malignant neoplasm of intra-abdominal lymph nodes; Z68.41 Body mass index [BMI] 40.0-44.9, adult; C67.9 Malignant neoplasm of bladder, unspecified; N13.9 Obstructive and reflux uropathy, unspecified; Z66 Do not resuscitate; K57.30 Diverticulosis of large intestine without perforation or abscess without bleeding; Z88.2 Allergy status to sulfonamides; Z88.1 Allergy status to other antibiotic agents; B96.20 Unspecified Escherichia coli [E. coli] as the cause of diseases classified elsewhere; E66.9 Obesity, unspecified; E03.9 Hypothyroidism, unspecified; M19.90 Unspecified osteoarthritis, unspecified site; K42.9 Umbilical hernia without obstruction or gangrene; E11.9 Type 2 diabetes mellitus without complications; E78.5 Hyperlipidemia, unspecified; E83.52 Hypercalcemia; I10 Essential (primary) hypertension; K59.00 Constipation, unspecified; Z79.890 Hormone replacement therapy